=== PATIENT | male | born 1960 | race Caucasian/White ===

== ENCOUNTER → 2022-02-06 | Outpatient (CLI) | payer BC ==
--- NOTE | 2022-02-06 09:42 | MR ---
EXAMINATION TYPE: MR lumbar spine wo con DATE OF EXAM: 02/06/2022 COMPARISON: Lumbar spine radiograph 10/21/2021 HISTORY: Lower back pain, radiates down right leg. TECHNIQUE: Multiplanar, multisequence images of the lumbar spine were acquired without IV contrast. FINDINGS: Lumbar segments are intact. No paraspinal masses are identified. Conus medullaris has a normal appe arance. Multilevel disc desiccation. L1-L2: No herniation, protrusion or disc bulging. No canal stenosis is present. Foramina are paten t bilaterally. L2-L3: No herniation, protrusion or disc bulging. No canal stenosis is present. Foramina are paten t bilaterally. L3-L4: No herniation, protrusion or disc bulging. No canal stenosis is present. Foramina are paten t bilaterally. L4-L5: Broad-based disc bulge without significant effacement of the anterior thecal sac. Bilateral fa cet arthropathy with right greater than left. T2 hyperintense/T1 isointense lesion measuring 1.6 x 0. 8 cm in the right L4 lateral recess (series 601, image 10 and series 301, image 11). This results in moderate effacement of the right lateral thecal sac with displacement of the exiting right L4 nerve r oot. The descending right L5 nerve root is displaced medially. There is associated ligamentum flavum buckling with right greater than left. Severe right neural foraminal stenosis. The left neural forame n is mildly narrowed. L5-S1: No herniation, protrusion or disc bulging. No canal stenosis is present. Bilateral facet arth ropathy. Foramina are patent bilaterally. IMPRESSION: Large 1.6 cm lesion in the right L4 lateral recess with signal characteristics of a synovial cyst chung sing from the L4-L5 facet joint. This contacts the right L4 and L5 nerve roots with severe right neur al foraminal stenosis. There is moderate effacement of the lateral aspect of the thecal sac at this l evel.
== END | disposition home or self-care (01) ==
LOC: RADMRIMAIN 08:09
PROVIDERS: ATTEND Orthopaedic Surgery
DX: M99.73 Connective tissue and disc stenosis of intervertebral foramina of lumbar region (principal); G95.9 Disease of spinal cord, unspecified
CPT/HCPCS: 72148

== ENCOUNTER → 2022-12-01 | Outpatient (CLI) | payer BC ==
[2022-12-01 10:58] LABS: Basophils # (A) 0.05 X 10*3/uL (0.00-0.10); Basophils % (A) 1.1 %; Eosinophils # (A) 0.06 X 10*3/uL (0.04-0.35); Eosinophils % (A) 1.3 %; HCT 35.9 % (39.6-50.0); HGB 12.5 d/dL (13.0-17.0); Lymphocytes # (A) 1.31 X 10*3/uL (0.90-5.00); Lymphocytes % (A) 29.1 %; MCH 39.7 pg (27.0-32.0); MCHC 34.8 d/dL (32.0-37.0); Mean Platelet Volume 11.1 FL (9.5-12.2); Monocytes # (A) 0.63 X 10*3/uL (0.20-1.00); NRBC Per 100 WBC 0 X 10*3/uL (0.00-0.01); Neutrophils # (A) 2.43 X 10*3/uL (1.80-7.70); Neutrophils % (A) 54.1 %; Platelet Count 114 X 10*3/uL (140-440); RBC 3.15 X 10*6/uL (4.40-5.60)
[2022-12-01 11:35] LABS: ALT 22 U/L (10-49); AST 42 U/L (14-35); Albumin 4.1 d/dL (3.8-4.9); Albumin/Globulin Ratio 1.28 Ratio (1.60-3.17); Alkaline Phosphatase 192 U/L (41-126); Blood Urea Nitrogen 7.4 mg/dL (9.0-27.0); Calcium 9.6 mg/dL (8.7-10.3); Carbon Dioxide 24.1 mmol/L (21.6-31.8); Chloride 93 mmol/L (96-109); Globulin 3.2 d/dL (1.6-3.3); Glucose 97 mg/dL (70-110); Potassium 4.9 mmol/L (3.5-5.5); Sodium 128 mmol/L (135-145); Total Bilirubin 0.5 mg/dL (0.3-1.2); Total Protein 7.3 d/dL (6.2-8.2)
[2022-12-01 11:43] LABS: Appearance,Urine Clear (Clear); Bilirubin,Urine Negative (Negative); Blood,Urine Negative (Negative); Color,Urine Yellow (Yellow); Ketones,Urine Negative (Negative); Nitrite,Urine Negative (Negative); PH, Urine 5.5; Specific Gravity,Urine 1.012 (1.001-1.030); Urobilinogen,Urine 0.2 E.U./DL
[2022-12-01 13:22] LABS: Erythrocyte Sedimentation Rate 63 mm/Hr (0-20)
== END | disposition home or self-care (01) ==
LOC: LABWHC1 07:22
PROVIDERS: ATTEND Internal Medicine Infectious Disease
DX: M96.1 Postlaminectomy syndrome, not elsewhere classified (principal); L30.9 Dermatitis, unspecified
CPT/HCPCS: 36415; 80053; 81003; 85025; 85652; 86140

== ENCOUNTER 2023-05-24 13:54 | Inpatient (IN) | payer BC ==
[2023-05-24 14:44] LABS: ALT 27 U/L (4-49); AST 68 U/L (17-59); African American GFR (CKD) >90 (>60 ml/min/1.73 sqM); Albumin 3.2 g/dL (3.5-5.0); Alkaline Phosphatase 186 U/L (38-126); Anion Gap 14 mmol/L; Blood Urea Nitrogen 17 mg/dL (9-20); Calcium 8.6 mg/dL (8.4-10.2); Carbon Dioxide 16 mmol/L (22-30); Chloride 93 mmol/L (98-107); Creatine Kinase 57 U/L (55-170); Glucose 95 mg/dL (74-99); Magnesium 1.8 mg/dL (1.6-2.3); Non-African American GFR(CKD) >90 (>60 ml/min/1.73 sqM); Sodium 123 mmol/L (137-145); Total Bilirubin 1.5 mg/dL (0.2-1.3); Total Protein 6.5 g/dL (6.3-8.2)
[2023-05-24] MEDS: SODIUM CHLORIDE 0.9% 1,000 ML IV STA (14:51)
--- NOTE | 2023-05-24 14:52 | XR ---
EXAMINATION TYPE: XR chest 1V portable DATE OF EXAM: 05/24/2023 2:40 PM CLINICAL INDICATION:Male, 63 years old with history of weakness; [facility] COMPARISON: None TECHNIQUE: XR chest 1V portable Frontal view of the chest. FINDINGS: Lungs/Pleura: Hazy airspace disease is identified surrounding the right hilum. No evidence of pleural effusion or pneumothorax. Pulmonary vascularity: Unremarkable. Heart/mediastinum: Cardiomediastinal silhouette is unremarkable. Musculoskeletal: No acute osseous pathology. IMPRESSION: Hazy airspace disease near the right hilum, may represent combination of atelectasis and developing i nfectious/inflammatory process.
--- NOTE | 2023-05-24 14:52 | ED ---
General Adult HPI - General Chief complaint: Altered Mental Status Stated complaint: Altered Mental Status Time Seen by Provider: 05/24/23 13:56 Source: patient, family, EMS, RN notes reviewed, old records reviewed Mode of arrival: EMS Limitations: altered mental status - History of Present Illness Initial comments: 63-year-old male presenting for evaluation of confusion, weakness, debility. History is obtained from paramedics and from the patient's who indicate that he has had a steady decline over the past 1 month. He has history of chronic back pain and has had chronic issues related to his back for over 1 year. She states he did have an infection in his back that took a long hot time to rehab from. He is not been ambulatory and is living alone but his ex- is able to check on him frequently. He has not been eating and drinking well. - Related Data Allergies Allergy/AdvReac Type Severity Reaction Status Date / Time No Known Allergies Allergy Verified 05/24/23 14:00 Review of Systems ROS Statement: Those systems with pertinent positive or pertinent negative responses have been documented in the HPI. ROS Other: All systems not noted in ROS Statement are negative. Past Medical History Past Medical History: Unable to Obtain History of Any Multi-Drug Resistant Organisms: Unobtainable Past Surgical History: Unable to Obtain Past Psychological History: Unable to Obtain General Exam Limitations: no limitations General appearance: lethargic, in distress Head exam: Present: atraumatic, normocephalic Eye exam: Present: normal appearance, PERRL ENT exam: Present: mucous membranes dry Respiratory exam: Present: wheezes, other (Tachypneic). Absent: respiratory distress Cardiovascular Exam: Present: tachycardia, irregular rhythm GI/Abdominal exam: Present: soft. Absent: distended, tenderness, guarding Extremities exam: Present: normal inspection, normal capillary refill Neurological exam: Present: alert, CN II-XII intact, other (Generalized weakness). Absent: oriented X3 Skin exam: Present: warm, dry Course Vital Signs 05/24/23 05/24/23 13:56 15:12 Temperature 97.7 F Pulse Rate 110 H 123 H Respiratory 24 20 Rate Blood Pressure 87/66 127/63 O2 Sat by Pulse 96 94 L Oximetry Medical Decision Making - Medical Decision Making Was pt. sent in by a medical professional or institution (, PA, PYROTECHNIC MIXER, urgent care, hospital, or detention...) When possible be specific @ -No Did you speak to anyone other than the patient for history (EMS, parent, family, police, friend...)? What history was obtained from this source @ -Patient's ex-, paramedics Did you review nursing and triage notes (agree or disagree)? Why? @ -I reviewed and agree with nursing and triage notes Were old charts reviewed (outside hosp., previous admission, EMS record, old EKG, old radiological studies, urgent care reports/EKG's, detention records)? Report findings @ -No old charts were reviewed Differential Diagnosis (chest pain, altered mental status, abdominal pain women, abdominal pain men, vaginal bleeding, weakness, fever, dyspnea, syncope, headache, dizziness, GI bleed, back pain, seizure, CVA, palpatations, mental health, musculoskeletal)? @ -Differential Weakness: Hypoglycemia, shock, sepsis, hyponatremia, anemia, infection, PA, ETOH, adverse medicine reaction, overdose, stroke, this is not meant to be an all-inclusive list. EKG interpreted by me (3pts min.). @ -Narrow complex rhythm sinus tach versus atrial flutter rate of 136, QRS duration 130, QTc 445. X-rays interpreted by me (1pt min.). @ -Chest x-ray concerning for developing airspace opacity, pneumonia. CT interpreted by me (1pt min.). @ -None done U/S interpreted by me (1pt. min.). @ -None done What testing was considered but not performed or refused? (CT, X-rays, U/S, labs)? Why? @ -None What meds were considered but not given or refused? Why? @ -None Did you discuss the management of the patient with other professionals (professionals i.e. , PA, PYROTECHNIC MIXER, lab, RT, psych nurse, social sciences lecturer, accounting policy consultant, teacher, electorate officer, pillowcase cutter)? Give summary @ -No Was smoking cessation discussed for >3mins.? @ -No Was critical care preformed (if so, how long)? @ -[yes, 35 min Were there social determinants of health that impacted care today? How? (Homelessness, low income, unemployed, alcoholism, drug addiction, transportation, low edu. Level, literacy, decrease access to med. care, intermediate, rehab)? @ -No Was there de-escalation of care discussed even if they declined (Discuss DNR or withdrawal of care, Hospice)? DNR status @ -No What co-morbidities impacted this encounter? (DM, HTN, Smoking, COPD, CAD, Cancer, CVA, ARF, Chemo, Hep., AIDS, mental health diagnosis, sleep apnea, mor bid obesity)? @ Was patient admitted / discharged? Hospital course, mention meds given and route, prescriptions, significant lab abnormalities, going to OR and other pertinent info. @ -63-year-old male presenting with progressive debility and weakness. Patient is tachycardic, tachypneic upon arrival. He has not been eating and drinking well. Very dry mucous membranes. Given fluid bolus and workup initiated. Chest x-ray does show concern for developing pneumonia. He has a white blood cell count of 15,000. His hemoglobin is stable. He has hyponatremia with a sodium of 123. His lactic acid is elevated at 3.3. His troponin is elevated at 2. He will be admitted for dehydration, hyponatremia, pneumonia, non-ST segment elevated PA. Case discussed with [facility] and Dr. Artis covering for cardiology. Dr. Artis does recommend heparin for this patient. This is initiated in the emergency department. Cardiac enzymes will be trended. Undiagnosed new problem with uncertain prognosis? @ -No Drug Therapy requiring intensive monitoring for toxicity (Heparin, Nitro, Insulin, Cardizem)? @ -No Were any procedures done? @ -No Diagnosis/symptom? @ -[NSTEMI, dehydration, hyponatremia, pneumonia Acute, or Chronic, or Acute on Chronic? @ -Acute Uncomplicated (without systemic symptoms) or Complicated (systemic symptoms)? @ -Default Side effects of treatment? @ -No Exacerbation, Progression, or Severe Exacerbation? @ -No Poses a threat to life or bodily function? How? (Chest pain, USA, PA, pneumonia, PE, COPD, DKA, ARF, appy, cholecystitis, CVA, Diverticulitis, Homicidal, Suicidal, threat to staff... and all critical care pts) @ -[Yes, ACS, sepsis, electrolyte abnormality - Lab Data Result diagrams: 05/24/23 14:11 05/24/23 14:11 Lab Results 05/24/23 05/24/23 05/24/23 Range/Units 14:11 14:11 14:11 WBC 15.6 H (3.8-10.6) k/uL RBC 3.46 L (4.30-5.90) m/uL Hgb 13.5 (13.0-17.5) gm/dL Hct 38.2 L (39.0-53.0) % MCV 110.1 H (80.0-100.0) fL MCH 39.0 H (25.0-35.0) pg MCHC 35.4 (31.0-37.0) g/dL RDW 12.3 (11.5-15.5) % Plt Count 112 L (150-450) k/uL MPV 10.1 Neutrophils % Not Reportable Neutrophils % (Manual) 91 % Band Neuts % (Manual) 5 % Lymphocytes % Not Reportable Lymphocytes % (Manual) 2 % Monocytes % Not Reportable Monocytes % (Manual) 2 % Eosinophils % Not Reportable Basophils % Not Reportable Neutrophils # Not Reportable Neutrophils # (Manual) 14.90 H (1.3-7.7) k/uL Lymphocytes # Not Reportable Lymphocytes # (Manual) 0.31 L (1.0-4.8) k/uL Monocytes # Not Reportable Monocytes # (Manual) 0.31 (0-1.0) k/uL Eosinophils # Not Reportable Basophils # Not Reportable Nucleated RBCs 0 (0-0) /100 WBC Manual Slide Review Performed Macrocytosis Marked A PT (10.0-12.5) sec INR (<1.2) APTT (22.0-30.0) sec Sodium 123 L (137-145) mmol/L Potassium 4.0 (3.5-5.1) mmol/L Chloride 93 L (98-107) mmol/L Carbon Dioxide 16 L (22-30) mmol/L Anion Gap 14 mmol/L BUN 17 (9-20) mg/dL Creatinine 0.59 L (0.66-1.25) mg/dL Est GFR (CKD-EPI)AfAm >90 (>60 ml/min/1.73 sqM) Est GFR (CKD-EPI)NonAf >90 (>60 ml/min/1.73 sqM) Glucose 95 (74-99) mg/dL Plasma Lactic Acid Tom (0.7-2.0) mmol/L Calcium 8.6 (8.4-10.2) mg/dL Magnesium 1.8 (1.6-2.3) mg/dL Total Bilirubin 1.5 H (0.2-1.3) mg/dL AST 68 H (17-59) U/L ALT 27 (4-49) U/L Alkaline Phosphatase 186 H (38-126) U/L Creatine Kinase 57 (55-170) U/L Troponin I (0.000-0.034) ng/mL Total Protein 6.5 (6.3-8.2) g/dL Albumin 3.2 L (3.5-5.0) g/dL Urine Color Yellow Urine Appearance Clear (Clear) Urine pH 5.5 (5.0-8.0) Ur Specific [place] 1.023 (1.001-1.035) Urine Protein Trace H (Negative) Urine Glucose (UA) Negative (Negative) Urine Ketones Trace H (Negative) Urine Blood Moderate H (Negative) Urine Nitrite Negative (Negative) Urine Bilirubin Negative (Negative) Urine Urobilinogen 2.0 (<2.0) mg/dL Ur Leukocyte Esterase Negative (Negative) Urine RBC 4 (0-5) /hpf Urine WBC 4 (0-5) /hpf Urine Bacteria Occasional H (None) /hpf Urine Mucus Rare H (None) /hpf 05/24/23 05/24/23 05/24/23 Range/Units 14:11 14:11 14:12 WBC (3.8-10.6) k/uL RBC (4.30-5.90) m/uL Hgb (13.0-17.5) gm/dL Hct (39.0-53.0) % MCV (80.0-100.0) fL MCH (25.0-35.0) pg MCHC (31.0-37.0) g/dL RDW (11.5-15.5) % Plt Count (150-450) k/uL MPV Neutrophils % Neutrophils % (Manual) % Band Neuts % (Manual) % Lymphocytes % Lymphocytes % (Manual) % Monocytes % Monocytes % (Manual) % Eosinophils % Basophils % Neutrophils # Neutrophils # (Manual) (1.3-7.7) k/uL Lymphocytes # Lymphocytes # (Manual) (1.0-4.8) k/uL Monocytes # Monocytes # (Manual) (0-1.0) k/uL Eosinophils # Basophils # Nucleated RBCs (0-0) /100 WBC Manual Slide Review Macrocytosis PT 13.0 H (10.0-12.5) sec INR 1.2 H (<1.2) APTT 30.7 H (22.0-30.0) sec Sodium (137-145) mmol/L Potassium (3.5-5.1) mmol/L Chloride (98-107) mmol/L Carbon Dioxide (22-30) mmol/L Anion Gap mmol/L BUN (9-20) mg/dL Creatinine (0.66-1.25) mg/dL Est GFR (CKD-EPI)AfAm (>60 ml/min/1.73 sqM) Est GFR (CKD-EPI)NonAf (>60 ml/min/1.73 sqM) Glucose (74-99) mg/dL Plasma Lactic Acid Tom 3.3 H* (0.7-2.0) mmol/L Calcium (8.4-10.2) mg/dL Magnesium (1.6-2.3) mg/dL Total Bilirubin (0.2-1.3) mg/dL AST (17-59) U/L ALT (4-49) U/L Alkaline Phosphatase (38-126) U/L Creatine Kinase (55-170) U/L Troponin I 2.370 H* (0.000-0.034) ng/mL Total Protein (6.3-8.2) g/dL Albumin (3.5-5.0) g/dL Urine Color Urine Appearance (Clear) Urine pH (5.0-8.0) Ur Specific [place] (1.001-1.035) Urine Protein (Negative) Urine Glucose (UA) (Negative) Urine Ketones (Negative) Urine Blood (Negative) Urine Nitrite (Negative) Urine Bilirubin (Negative) Urine Urobilinogen (<2.0) mg/dL Ur Leukocyte Esterase (Negative) Urine RBC (0-5) /hpf Urine WBC (0-5) /hpf Urine Bacteria (None) /hpf Urine Mucus (None) /hpf Critical Care Time Critical Care Time: Yes Total Critical Care Time: 35 Disposition Clinical Impression: Altered mental status, Pneumonia, NSTEMI (non-ST elevated myocardial infarction), Hyponatremia Disposition: ADMITTED IP TO THIS HOSP Condition: Serious Is patient prescribed a controlled substance at d/c from ED?: No Referrals: None,Stated [REFERRING] - 1-2 days Time of Disposition: 16:04
[2023-05-24 15:03] LABS: HCT 38.2 % (39.0-53.0); HGB 13.5 gm/dL (13.0-17.5); MCHC 35.4 g/dL (31.0-37.0); MCV 110.1 fL (80.0-100.0); Macrocytosis Marked; Mean Platelet Volume 10.1; Platelet Count 112 k/uL (150-450); RBC 3.46 m/uL (4.30-5.90); RDW 12.3 % (11.5-15.5); WBC 15.6 k/uL (3.8-10.6)
[2023-05-24 15:04] LABS: INR 1.2 (<1.2); Partial Thromboplastin Time 30.7 sec (22.0-30.0)
[2023-05-24 15:15] LABS: Appearance,Urine Clear (Clear); Bacteria,Urine Occasional /hpf; Bilirubin,Urine Negative (Negative); Blood,Urine Moderate (Negative); Color,Urine Yellow; Glucose,Urine (UA) Negative (Negative); Ketones,Urine Trace (Negative); Leukocyte Esterase,Urine Negative (Negative); Mucus,Urine Rare /hpf; Nitrite,Urine Negative (Negative); PH, Urine 5.5 (5.0-8.0); Protein,Urine Trace (Negative); RBC,Urine 4 /hpf (0-5); Specific Gravity,Urine 1.023 (1.001-1.035); WBC,Urine 4 /hpf (0-5)
[2023-05-24 15:35] LABS: Band Neutrophils % 5 %; Lymphocytes # (M) 0.31 k/uL (1.0-4.8); Monocytes # (M) 0.31 k/uL (0-1.0); Neutrophils % (M) 91 %; Nucleated Red Blood Cells 0 /100 WBC (0-0); Total Cells Counted 100
[2023-05-24] MEDS: DILTIAZEM DRIP BOLUS FROM BAG 1 MG SOLN IV ONE (15:41)
[2023-05-24] MEDS: DILTIAZEM 125 MG in SODIUM CHLORIDE 0.9% 100 ML IV SCH (15:41)
[2023-05-24] MEDS ORDERED: NALOXONE 0.4 MG/ML 1 ML VIAL IV PRN (15:55)
--- NOTE | 2023-05-24 17:12 | P.HPIM ---
History of Present Illness H&P Date: 05/24/23 Patient is a 63-year-old male with history of hypertension presenting with confusion and dehydration. Patient is a poor historian. Ex- is present in the room. Patient reportedly had back surgery about 1 year ago, and had spinal infections. He was nonambulatory for almost 6 months. However, more recently he started to get improve. About few weeks ago he has been progressively de clining, mostly staying in his recliner chair. Today, ex- went to his house to check on him, and noted that he was extremely debilitated unable to get up from his chair, not sure if he has been eating or drinking, extremely confused. He had also soiled himself when she tried to get him out of the chair to shower. Patient currently denies any significant chest pain, shortness of breath, abdo nathan pain, nausea, vomiting, urinary or bowel complaints. No recent travel history or sick contacts. In the ED, temperature was 97.7, pulse 110, blood pressure 87/66, saturating at 96% on room air. WBC 15.6, hemoglobin 13.5, platelet 112, INR 1.2, sodium 123, potassium 4, bicarb 16, anion gap 14, BUN 17, creatinine 0.59, lactate 3.3, total bili 1.5, AST 68, ALT 27, ALP 186, troponin 2.37, urinalysis negative for nitrites and leukocyte esterase. EKG shows supraventricular tachycardia, likely sinus, right bundle branch block chest x-ray shows underinflated, opacity near the right hilum. Patient being admitted for severe dehydration, NSTEMI and sepsis secondary to pneumonia. Pertinent positives and negatives as discussed in HPI, a complete review of systems was performed and all other systems are negative. Patient seen and examined at bedside. Vital signs reviewed General: Ill-appearing, mild distress, appears at stated age Derm: warm, dry Head: atraumatic, normocephalic, symmetric Eyes: EOMI, no lid lag, anicteric sclera, pupils equal round reactive to light ENT: Nose and ears atraumatic Neck: No thyromegaly, supple Mouth: no lip lesion, mucus membranes moist Cardiovascular: S1S2 reg, systolic murmur, no edema Lungs: clear to auscultation bilateral, no rhonchi, no rales, no wheeze, no accessory muscle use Abdominal: soft, nontender to palpation, no guarding, no appreciable organomegaly Ext: no gross muscle atrophy, muscle strength muscle strength 5 out of 5 in all 4 extremities, no contractures Neuro: CN II-XII grossly intact Psych: Alert, oriented x 2, appropriate affect Assessment/Plan: Active: Sepsis, likely secondary to community-acquired pneumonia Severe dehydration Hypovolemic hyponatremia High anion gap metabolic acidosis Lactic acidosis NSTEMI, likely type II Hyperbilirubinemia Thrombocytopenia, likely in the setting of sepsis Acute encephalopathy, likely related to sepsis, versus hepatic Hold home diuretics, continue IV fluids at 130 cc an hour normal saline Empirically cover with IV ceftriaxone and IV azithromycin, cultures pending BMP every 6 hours, avoid increase in sodium more than 8 mEq in the next 24 hours Trend troponin, currently no active chest pain On heparin drip Status post aspirin 325, will continue aspirin 81 mg, also started on atorvastatin 40 Echocardiogram pending Telemetry monitoring Cardiology consulted, pending recommendations Right upper quadrant ultrasound ordered Ammonia level pending The patient is admitted with an anticipated greater than 2 midnight stay as inpatient status for evaluation of severe dehydration. Surrogate decision-maker: Ex- CODE STATUS: Full code DVT prophylaxis: Heparin drip Anticipated discharge date: Pending clinical course Anticipated discharge place: Pending clinical course A total of 65 minutes was spent on the care of this complex patient more than 50% of the time was spent in counseling and care coordination. Past Medical History Past Medical History: Unable to Obtain History of Any Multi-Drug Resistant Organisms: Unobtainable Past Surgical History: Unable to Obtain Past Psychological History: Unable to Obtain Medications and Allergies Allergies Allergy/AdvReac Type Severity Reaction Status Date / Time No Known Allergies Allergy Verified 05/24/23 14:00 Physical Exam Vitals: Vital Signs Temp Pulse Resp BP Pulse Ox 05/24/23 15:12 123 H 20 127/63 94 L 05/24/23 13:56 97.7 F 110 H 24 87/66 96 Intake and Output 05/24/23 05/24/23 05/24/23 06:59 14:59 22:59 Other: Weight 106.8 kg Results CBC & Chem 7: 05/24/23 14:11 05/24/23 14:11 Labs: Abnormal Lab Results - Last 24 Hours (Table) 05/24/23 05/24/23 05/24/23 Range/Units 14:11 14:11 14:11 WBC 15.6 H (3.8-10.6) k/uL RBC 3.46 L (4.30-5.90) m/uL Hct 38.2 L (39.0-53.0) % MCV 110.1 H (80.0-100.0) fL MCH 39.0 H (25.0-35.0) pg Plt Count 112 L (150-450) k/uL Neutrophils # (Manual) 14.90 H (1.3-7.7) k/uL Lymphocytes # (Manual) 0.31 L (1.0-4.8) k/uL Macrocytosis Marked A PT (10.0-12.5) sec INR (<1.2) APTT (22.0-30.0) sec Sodium 123 L (137-145) mmol/L Chloride 93 L (98-107) mmol/L Carbon Dioxide 16 L (22-30) mmol/L Creatinine 0.59 L (0.66-1.25) mg/dL Plasma Lactic Acid Tom (0.7-2.0) mmol/L Total Bilirubin 1.5 H (0.2-1.3) mg/dL AST 68 H (17-59) U/L Alkaline Phosphatase 186 H (38-126) U/L Troponin I (0.000-0.034) ng/mL Albumin 3.2 L (3.5-5.0) g/dL Urine Protein Trace H (Negative) Urine Ketones Trace H (Negative) Urine Blood Moderate H (Negative) Urine Bacteria Occasional H (None) /hpf Urine Mucus Rare H (None) /hpf 05/24/23 05/24/23 05/24/23 Range/Units 14:11 14:11 14:12 WBC (3.8-10.6) k/uL RBC (4.30-5.90) m/uL Hct (39.0-53.0) % MCV (80.0-100.0) fL MCH (25.0-35.0) pg Plt Count (150-450) k/uL Neutrophils # (Manual) (1.3-7.7) k/uL Lymphocytes # (Manual) (1.0-4.8) k/uL Macrocytosis PT 13.0 H (10.0-12.5) sec INR 1.2 H (<1.2) APTT 30.7 H (22.0-30.0) sec Sodium (137-145) mmol/L Chloride (98-107) mmol/L Carbon Dioxide (22-30) mmol/L Creatinine (0.66-1.25) mg/dL Plasma Lactic Acid Tom 3.3 H* (0.7-2.0) mmol/L Total Bilirubin (0.2-1.3) mg/dL AST (17-59) U/L Alkaline Phosphatase (38-126) U/L Troponin I 2.370 H* (0.000-0.034) ng/mL Albumin (3.5-5.0) g/dL Urine Protein (Negative) Urine Ketones (Negative) Urine Blood (Negative) Urine Bacteria (None) /hpf Urine Mucus (None) /hpf
[2023-05-24] MEDS: SODIUM CHLORIDE 0.9% 1,000 ML IV SCH (17:56)
[2023-05-24] MEDS: ASPIRIN 325 MG TAB PO STA (17:57)
[2023-05-24] MEDS: HEPARIN SODIUM 1,000 UN/ML (10ML VL) IV ONE (17:59)
[2023-05-24] MEDS: HEPARIN SOD,PORK IN 0.45% NACL 25,000 UNIT in 0.45% NACL 1 250ML.BAG IV SCH (18:00)
[2023-05-24 18:26] LABS: African American GFR (CKD) >90 (>60 ml/min/1.73 sqM); Anion Gap 13 mmol/L; Blood Urea Nitrogen 17 mg/dL (9-20); Calcium 8.3 mg/dL (8.4-10.2); Carbon Dioxide 17 mmol/L (22-30); Chloride 93 mmol/L (98-107); Glucose 81 mg/dL (74-99); Non-African American GFR(CKD) >90 (>60 ml/min/1.73 sqM); Potassium 4.2 mmol/L (3.5-5.1); Sodium 123 mmol/L (137-145)
[2023-05-24] MEDS: AZITHROMYCIN 500 MG in SODIUM CHLORIDE 0.9% 250 ML IVPB STA (18:59)
[2023-05-24] MEDS: MORPHINE SULFATE 2 MG/ML SYRINGE IVP PRN (20:24)
[2023-05-24] MEDS: ATORVASTATIN 40 MG TAB PO SCH (20:30)
[2023-05-24] MEDS: GABAPENTIN 400 MG CAP PO SCH (21:57)
[2023-05-24] MEDS: PRAMIPEXOLE 0.5 MG TAB PO SCH (21:57)
--- NOTE | 2023-05-24 23:31 | CT ---
EXAMINATION TYPE: CT brain wo con DATE OF EXAM: 05/24/2023 HISTORY: AMS CT DLP: 1197.4 mGycm. Automated Exposure Control for Dose Reduction was Utilized. TECHNIQUE: CT scan of the head is performed without contrast. COMPARISON: None. FINDINGS: There is no acute intracranial hemorrhage or midline shift identified. There is mild diff use ventricular and sulcal prominence consistent with diffuse age-related cerebral atrophy. There is mild low-attenuation in the periventricular white matter consistent with chronic small vessel ischem ic change. No suspicious opacification of the mastoid air cells bilaterally. The globes are intact a nd the visualized sinuses are clear. IMPRESSION: No acute intracranial hemorrhage or midline shift. There is mild diffuse age-related ce rebral atrophy and chronic small vessel ischemic change noted.
--- NOTE | 2023-05-25 00:06 | US ---
EXAMINATION TYPE: US abdomen limited DATE OF EXAM: 05/24/2023 COMPARISON: NONE CLINICAL INDICATION: Male, 63 years old with history of transaminitis; TECHNIQUE: Multiple sonographic images of the right upper quadrant are obtained. FINDINGS: EXAM MEASUREMENTS: Liver Length: 22.2 cm Gallbladder Wall: 0.2 cm CBD: 0.4 cm Right Kidney: 11.5 x 5.4 x 5.0 cm Pancreas: visualized portions wnl, limited by overlying midline bowel gas Liver: Enlarged. Question slightly coarsened echogenicity with no significant loss of internal tanmay ecture demonstrated. Gallbladder: Hydropic, measuring 10.7 cm in length and up to 4 cm across. Grayscale haziness at the s uperficial aspect of the gallbladder on some images appears to be artifact. No shadowing gallstones a re seen. Evidence for sonographic Ortega's sign: yes CBD: visualized portions wnl, limited by overlying bowel gas Right Kidney: wnl IMPRESSION: 1. Hepatomegaly. Question slightly coarsened echogenicity, can be seen with diffuse hepatocellular d iseases including steatosis. Correlate clinically. 2. Hydropic gallbladder, with reportedly positive sonographic Ortega's sign. However no shadowing ga llstones, wall thickening, or pericholecystic fluid. Findings are considered equivocal for possible c holecystitis. Please correlate and follow clinically, and if there is persistent concern HIDA scan or repeat ultrasound may be obtained. 3. CBD size is within normal limits.
[2023-05-25 01:29] LABS: African American GFR (CKD) >90 (>60 ml/min/1.73 sqM); Anion Gap 12 mmol/L; Blood Urea Nitrogen 19 mg/dL (9-20); Calcium 7.6 mg/dL (8.4-10.2); Carbon Dioxide 13 mmol/L (22-30); Chloride 95 mmol/L (98-107); Glucose 94 mg/dL (74-99); Non-African American GFR(CKD) >90 (>60 ml/min/1.73 sqM); Potassium 3.8 mmol/L (3.5-5.1); Sodium 120 mmol/L (137-145)
[2023-05-25 06:56] LABS: INR 1.3 (<1.2); Prothrombin Time 13.9 sec (10.0-12.5)
[2023-05-25 07:03] LABS: Basophils % (A) 0 %; Eosinophils % (A) 0 %; HCT 35.8 % (39.0-53.0); HGB 12.2 gm/dL (13.0-17.5); Lymphocytes % (A) 6 %; MCH 37.7 pg (25.0-35.0); Macrocytosis Marked; Mean Platelet Volume 10.7; Monocytes # (A) 1.1 k/uL (0-1.0); Monocytes % (A) 7 %; Neutrophils # (A) 13.5 k/uL (1.3-7.7); Neutrophils % (A) 85 %; RBC 3.22 m/uL (4.30-5.90); WBC 15.9 k/uL (3.8-10.6)
[2023-05-25 07:28] LABS: African American GFR (CKD) >90 (>60 ml/min/1.73 sqM); Anion Gap 11 mmol/L; Blood Urea Nitrogen 20 mg/dL (9-20); Calcium 7.6 mg/dL (8.4-10.2); Carbon Dioxide 16 mmol/L (22-30); Chloride 94 mmol/L (98-107); Glucose 94 mg/dL (74-99); Non-African American GFR(CKD) >90 (>60 ml/min/1.73 sqM); Sodium 121 mmol/L (137-145)
[2023-05-25 07:45] LABS: Potassium 3.7 mmol/L (3.5-5.1)
[2023-05-25] MEDS: GABAPENTIN 400 MG CAP PO SCH (09:26)
[2023-05-25 09:33] LABS: Platelet Count 88 k/uL (150-450)
[2023-05-25] MEDS: ASPIRIN 81 MG PO SCH (10:35)
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
--- NOTE | 2023-05-25 11:51 | US ---
EXAMINATION TYPE: US abdomen limited DATE OF EXAM: 05/25/2023 COMPARISON: US Yesterday CLINICAL INDICATION, 63 years old with history of ascites; Ascites, ABD distention No evidence of ascites within abdomen IMPRESSION: 1. No free fluid evident within the abdomen.
[2023-05-25] MEDS: DILTIAZEM 125 MG in SODIUM CHLORIDE 0.9% 100 ML IV SCH (12:02)
[2023-05-25] MEDS: DILTIAZEM DRIP BOLUS FROM BAG 1 MG SOLN IV ONE (12:04)
--- NOTE | 2023-05-25 14:35 | NM ---
EXAMINATION TYPE: NM hepatobiliary w CCK DATE OF EXAM: 05/25/2023 COMPARISON: NONE INDICATION: Sepsis possible cholecystitis TECHNIQUE: After the intravenous administration of 4.96 mCi Tc 99m Mebrofenin hepatobiliary scintigra phy is performed. Images were obtained immediately post injection. FINDINGS: There is prompt uptake and excretion of radiotracer by the liver. Extrahepatic ducts are identified at 10 minutes. The gallbladder is visualized within 10 minutes. Small bowel activity is noted within 8 minutes. At one hour CCK was administered, patient was injected with 2.2 mcg of Kinevac, and gallbladder eject ion fraction is calculated at 99 %, which is low. (Normal >35% and <80%.). IMPRESSION: 1. Low ejection fraction of 29%. Correlate for biliary hypokinesia. 2. No obstruction evident.
--- NOTE | 2023-05-25 14:53 | P.PN ---
Subjective Progress Note Date: 05/25/23 Hospital Course: 63-year-old male with history of hypertension presenting with confusion and deh ydration. In the ED, temperature was 97.7, pulse 110, blood pressure 87/66, saturating at 96% on room air. WBC 15.6, hemoglobin 13.5, platelet 112, INR 1.2, sodium 123, potassium 4, bicarb 16, anion gap 14, BUN 17, creatinine 0.59, lactate 3.3, total bili 1.5, AST 68, ALT 27, ALP 186, troponin 2.37, urinalysis negative for nitrites and leukocyte esterase. EKG shows supraventricular tachycardia, likely sinus, right bundle branch block chest x-ray shows underinflated, opacity near the right hilum. Patient being admitted for severe dehydration, NSTEMI and sepsis secondary to pneumonia. Patient is also found to be bacteremic, growing MSSA. ID also consulted. Subjective: Patient seen and examined at bedside. No acute events overnight. Patient claims that he is feeling a lot better today Pertinent positives and negatives as discussed above, a complete review of systems was performed and all other systems are negative. Vitals Signs Reviewed. General: Nontoxic, no distress, appears at stated age Derm: Warm, dry Head: Atraumatic, normocephalic, symmetric Eyes: EOMI, no lid lag, anicteric sclera Mouth: No lip lesion, mucus membranes moist Cardiovascular: S1S2 tachycardic, irregular, systolic murmur Lungs: CTA bilateral, no rhonchi, no rales, no accessory muscle use Abdominal: Soft, nontender to palpation, no guarding, no appreciable organomegaly Ext: No gross muscle atrophy, no edema, no contractures, lumbar spinal tenderness Neuro: CN II-XI grossly intact, no focal neuro deficits Psych: Alert, oriented, appropriate affect Data Reviewed Today: Pertinent Labs: WBC 15.9, hemoglobin 12.2, platelet 88, sodium 121, bicarb 16, creatinine 0.56, troponin peaked at 2.37. Imaging: HIDA scan does not show any obstruction. EKG independently interpreted from this morning, shows atrial fibrillation with RVR and right bundle branch block. Assessment and Plan: Patient is severely ill, needs close monitoring. Sepsis, likely secondary to community-acquired pneumonia MSSA bacteremia Severe dehydration, resolved Persistent hyponatremia High anion gap metabolic acidosis, improving Lactic acidosis, resolved NSTEMI, likely type II Paroxysmal atrial fibrillation with RVR Hyperbilirubinemia Thrombocytopenia, likely in the setting of sepsis Acute encephalopathy,, resolved Patient started on cefazolin 2 g IV every 8 hours - Unclear source, patient does have significant lumbar pain, MRI spine pending, echocardiogram pending - ID consulted, pending recommendations - Nephrology note reviewed, patient started on sodium chloride tab 1 g twice daily, sodium bicarb 650 twice daily, IV fluids discontinued, on IV fluid restriction - Continue on heparin drip, cardiology also started Cardizem drip - No active chest pain - Continue aspirin 81 mg, atorvastatin 40 mg DVT ppx: Heparin drip Code status: Full code Anticipated discharge place: Pending clinical course Anticipated discharge time: Pending clinical course Objective - Vital Signs Vital signs: Vital Signs Temp 98 F 05/25/23 14:27 Pulse 134 H 05/25/23 14:27 Resp 18 05/25/23 14:27 BP 130/71 05/25/23 14:27 Pulse Ox 97 05/25/23 14:27 FiO2 Intake & Output 05/24/23 05/25/23 05/25/23 18:59 06:59 18:59 Weight 106.8 kg - Labs CBC & Chem 7: 05/25/23 06:40 05/25/23 06:40 Labs: Abnormal Lab Results - Last 24 Hours (Table) 05/24/23 05/24/23 05/24/23 Range/Units 14:11 14:11 14:11 WBC 15.6 H (3.8-10.6) k/uL RBC 3.46 L (4.30-5.90) m/uL Hgb (13.0-17.5) gm/dL Hct 38.2 L (39.0-53.0) % MCV 110.1 H (80.0-100.0) fL MCH 39.0 H (25.0-35.0) pg Plt Count 112 L (150-450) k/uL Neutrophils # (1.3-7.7) k/uL Neutrophils # (Manual) 14.90 H (1.3-7.7) k/uL Lymphocytes # (Manual) 0.31 L (1.0-4.8) k/uL Monocytes # (0-1.0) k/uL Macrocytosis Marked A PT (10.0-12.5) sec INR (<1.2) APTT (22.0-30.0) sec Sodium 123 L (137-145) mmol/L Chloride 93 L (98-107) mmol/L Carbon Dioxide 16 L (22-30) mmol/L Creatinine 0.59 L (0.66-1.25) mg/dL Osmolality (275-295) mOsm/kg Plasma Lactic Acid Tom (0.7-2.0) mmol/L Calcium (8.4-10.2) mg/dL Total Bilirubin 1.5 H (0.2-1.3) mg/dL AST 68 H (17-59) U/L Alkaline Phosphatase 186 H (38-126) U/L Troponin I (0.000-0.034) ng/mL Albumin 3.2 L (3.5-5.0) g/dL Procalcitonin (0.02-0.09) ng/mL Urine Protein Trace H (Negative) Urine Ketones Trace H (Negative) Urine Blood Moderate H (Negative) Urine Bacteria Occasional H (None) /hpf Urine Mucus Rare H (None) /hpf Urine Osmolality (400-1100) mOsm/kg 05/23/05/24/23 05/24/23 Range/Units 14:11 14:11 14:12 WBC (3.8-10.6) k/uL RBC (4.30-5.90) m/uL Hgb (13.0-17.5) gm/dL Hct (39.0-53.0) % MCV (80.0-100.0) fL MCH (25.0-35.0) pg Plt Count (150-450) k/uL Neutrophils # (1.3-7.7) k/uL Neutrophils # (Manual) (1.3-7.7) k/uL Lymphocytes # (Manual) (1.0-4.8) k/uL Monocytes # (0-1.0) k/uL Macrocytosis PT 13.0 H (10.0-12.5) sec INR 1.2 H (<1.2) APTT 30.7 H (22.0-30.0) sec Sodium (137-145) mmol/L Chloride (98-107) mmol/L Carbon Dioxide (22-30) mmol/L Creatinine (0.66-1.25) mg/dL Osmolality (275-295) mOsm/kg Plasma Lactic Acid Tom 3.3 H* (0.7-2.0) mmol/L Calcium (8.4-10.2) mg/dL Total Bilirubin (0.2-1.3) mg/dL AST (17-59) U/L Alkaline Phosphatase (38-126) U/L Troponin I 2.370 H* (0.000-0.034) ng/mL Albumin (3.5-5.0) g/dL Procalcitonin (0.02-0.09) ng/mL Urine Protein (Negative) Urine Ketones (Negative) Urine Blood (Negative) Urine Bacteria (None) /hpf Urine Mucus (None) /hpf Urine Osmolality (400-1100) mOsm/kg 05/24/23 05/24/23 05/24/23 Range/Units 17:40 17:40 17:40 WBC (3.8-10.6) k/uL RBC (4.30-5.90) m/uL Hgb (13.0-17.5) gm/dL Hct (39.0-53.0) % MCV (80.0-100.0) fL MCH (25.0-35.0) pg Plt Count (150-450) k/uL Neutrophils # (1.3-7.7) k/uL Neutrophils # (Manual) (1.3-7.7) k/uL Lymphocytes # (Manual) (1.0-4.8) k/uL Monocytes # (0-1.0) k/uL Macrocytosis PT (10.0-12.5) sec INR (<1.2) APTT (22.0-30.0) sec Sodium 123 L (137-145) mmol/L Chloride 93 L (98-107) mmol/L Carbon Dioxide 17 L (22-30) mmol/L Creatinine 0.64 L (0.66-1.25) mg/dL Osmolality (275-295) mOsm/kg Plasma Lactic Acid Tom (0.7-2.0) mmol/L Calcium 8.3 L (8.4-10.2) mg/dL Total Bilirubin (0.2-1.3) mg/dL AST (17-59) U/L Alkaline Phosphatase (38-126) U/L Troponin I 2.260 H* (0.000-0.034) ng/mL Albumin (3.5-5.0) g/dL Procalcitonin 9.33 H (0.02-0.09) ng/mL Urine Protein (Negative) Urine Ketones (Negative) Urine Blood (Negative) Urine Bacteria (None) /hpf Urine Mucus (None) /hpf Urine Osmolality (400-1100) mOsm/kg 05/24/23 05/24/23 05/24/23 Range/Units 17:40 20:54 20:54 WBC (3.8-10.6) k/uL RBC (4.30-5.90) m/uL Hgb (13.0-17.5) gm/dL Hct (39.0-53.0) % MCV (80.0-100.0) fL MCH (25.0-35.0) pg Plt Count (150-450) k/uL Neutrophils # (1.3-7.7) k/uL Neutrophils # (Manual) (1.3-7.7) k/uL Lymphocytes # (Manual) (1.0-4.8) k/uL Monocytes # (0-1.0) k/uL Macrocytosis PT (10.0-12.5) sec INR (<1.2) APTT 68.2 H (22.0-30.0) sec Sodium (137-145) mmol/L Chloride (98-107) mmol/L Carbon Dioxide (22-30) mmol/L Creatinine (0.66-1.25) mg/dL Osmolality (275-295) mOsm/kg Plasma Lactic Acid Tom 3.1 H* (0.7-2.0) mmol/L Calcium (8.4-10.2) mg/dL Total Bilirubin (0.2-1.3) mg/dL AST (17-59) U/L Alkaline Phosphatase (38-126) U/L Troponin I 1.950 H* (0.000-0.034) ng/mL Albumin (3.5-5.0) g/dL Procalcitonin (0.02-0.09) ng/mL Urine Protein (Negative) Urine Ketones (Negative) Urine Blood (Negative) Urine Bacteria (None) /hpf Urine Mucus (None) /hpf Urine Osmolality (400-1100) mOsm/kg 05/25/23 05/25/23 05/25/23 Range/Units 00:11 03:10 06:40 WBC 15.9 H (3.8-10.6) k/uL RBC 3.22 L (4.30-5.90) m/uL Hgb 12.2 L (13.0-17.5) gm/dL Hct 35.8 L (39.0-53.0) % MCV 111.0 H (80.0-100.0) fL MCH 37.7 H (25.0-35.0) pg Plt Count 88 L (150-450) k/uL Neutrophils # 13.5 H (1.3-7.7) k/uL Neutrophils # (Manual) (1.3-7.7) k/uL Lymphocytes # (Manual) (1.0-4.8) k/uL Monocytes # 1.1 H (0-1.0) k/uL Macrocytosis Marked A PT (10.0-12.5) sec INR (<1.2) APTT (22.0-30.0) sec Sodium 120 L (137-145) mmol/L Chloride 95 L (98-107) mmol/L Carbon Dioxide 13 L (22-30) mmol/L Creatinine (0.66-1.25) mg/dL Osmolality (275-295) mOsm/kg Plasma Lactic Acid Tom (0.7-2.0) mmol/L Calcium 7.6 L (8.4-10.2) mg/dL Total Bilirubin (0.2-1.3) mg/dL AST (17-59) U/L Alkaline Phosphatase (38-126) U/L Troponin I (0.000-0.034) ng/mL Albumin (3.5-5.0) g/dL Procalcitonin (0.02-0.09) ng/mL Urine Protein (Negative) Urine Ketones (Negative) Urine Blood (Negative) Urine Bacteria (None) /hpf Urine Mucus (None) /hpf Urine Osmolality 384 L (400-1100) mOsm/kg 05/25/23 05/25/23 05/25/23 Range/Units 06:40 06:40 06:40 WBC (3.8-10.6) k/uL RBC (4.30-5.90) m/uL Hgb (13.0-17.5) gm/dL Hct (39.0-53.0) % MCV (80.0-100.0) fL MCH (25.0-35.0) pg Plt Count (150-450) k/uL Neutrophils # (1.3-7.7) k/uL Neutrophils # (Manual) (1.3-7.7) k/uL Lymphocytes # (Manual) (1.0-4.8) k/uL Monocytes # (0-1.0) k/uL Macrocytosis PT 13.9 H (10.0-12.5) sec INR 1.3 H (<1.2) APTT (22.0-30.0) sec Sodium 121 L (137-145) mmol/L Chloride 94 L (98-107) mmol/L Carbon Dioxide 16 L (22-30) mmol/L Creatinine 0.56 L (0.66-1.25) mg/dL Osmolality 260 L (275-295) mOsm/kg Plasma Lactic Acid Tom (0.7-2.0) mmol/L Calcium 7.6 L (8.4-10.2) mg/dL Total Bilirubin (0.2-1.3) mg/dL AST (17-59) U/L Alkaline Phosphatase (38-126) U/L Troponin I (0.000-0.034) ng/mL Albumin (3.5-5.0) g/dL Procalcitonin (0.02-0.09) ng/mL Urine Protein (Negative) Urine Ketones (Negative) Urine Blood (Negative) Urine Bacteria (None) /hpf Urine Mucus (None) /hpf Urine Osmolality (400-1100) mOsm/kg Microbiology - Last 24 Hours (Table) 05/24/23 17:40 Blood Culture Gram Stain - Preliminary Blood 05/24/23 17:25 Blood Culture Gram Stain - Preliminary Blood
[2023-05-25 15:21] LABS: Sodium 122 mmol/L (137-145)
[2023-05-25] MEDS: SODIUM BICARBONATE TAB 650 MG TAB PO SCH (15:56)
[2023-05-25] MEDS: METOPROLOL TARTRATE 12.5 MG TAB PO SCH (15:56)
[2023-05-25] MEDS: SODIUM CHLORIDE TAB 1 GM TAB PO SCH (15:56)
[2023-05-25] MEDS: ACETAMINOPHEN TAB 325 MG TAB PO PRN (20:01)
[2023-05-25] MEDS ORDERED: AZITHROMYCIN 500 MG in SODIUM CHLORIDE 0.9% 250 ML IVPB SCH (21:00)
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
--- NOTE | 2023-05-25 21:40 | CONS ---
CONSULTATION Mr. Jose Raul Lentz is a patient who is 63 years of age, came into the hospital with what seems to be more or less some altered mentation, not oriented, received IV fluids. His lactic acid levels were high and this has improved. He feels better now. He is much better oriented. His blood culture positive for methicillin sensitive Staph aureus. Source is unclear. I was asked to see him mainly because of the elevated troponin on this patient. He has multiple other issues in the form of hyponatremia, sepsis, and also has episodes of paroxysmal atrial fibrillation. He is resting comfortably, appears somewhat under nourished and seems to be well oriented, asks appropriate questions. Denies any chest pain or shortness of breath. PAST MEDICAL HISTORY: Remarkable for multiple back surgeries. He apparently had about a year ago and had spinal infections with bacteremia. He also has other issues as well in the form of dehydration, hyponatremia. He has had history of hypertension as well. No documented evidence of prior myocardial infarction or CVA. His presentation was more or less like with sepsis and also what seemed to be an acute encephalopathy type picture that has resolved. He is resting comfortably at the time of my evaluation. LABORATORY DATA: Suggests that his troponin is elevated. It was 2.2 and started at 1.9. He also had a high lactic acid levels at 3.1, which has improved. Hyponatremia persists. He is positive for pneumonia with a procalcitonin level of 9.3. Chest x-ray suggests possible right-sided pneumonia. PHYSICAL EXAMINATION: VITAL SIGNS: Blood pressure 108/70; pulse rate about 100 to 110, irregular. HEENT: Unremarkable. Fundus was not examined by me. NECK: Supple. No JVD. I do not hear a carotid bruit. HEART: Reveals S1 and S2 with tachycardia, short systolic murmur. LUNGS: Reveal bilateral decent air entry. ABDOMEN: Soft. LOWER EXTREMITIES: Diminished pulses. CENTRAL NERVOUS SYSTEM: Grossly within normal limits. Generalized weakness noted. IMPRESSION: 1. Paroxysmal atrial fibrillation, EKG revealed initially sinus mechanism with a right bundle-branch block pattern and a repeat EKG this morning revealed atrial fibrillation with rapid ventricular rate and right bundle-branch block pattern, nonspecific ST-T changes. 2. Sepsis with methicillin resistant Staph aureus bacteremia. 3. Hyponatremia. 4. Multiple previous back surgeries. 5. Under nourished state. 6. History of previous back surgeries. RECOMMENDATIONS: In addition to antibiotics and ID consult and further evaluation, I am recommending IV Cardizem for rate control, start a small dose of beta-souleymane, place him on IV heparin which he is on and obtain echocardiogram to assess LV function. Prognosis remains guarded. Thank you very much for the consult. MMODL / IJN: [id number] /
[2023-05-26 04:12] LABS: Basophils % (A) 0 %; Eosinophils # (A) 0.1 k/uL (0-0.7); Eosinophils % (A) 0 %; HCT 35.8 % (39.0-53.0); HGB 11.7 gm/dL (13.0-17.5); Lymphocytes # (A) 1.1 k/uL (1.0-4.8); Lymphocytes % (A) 7 %; MCHC 32.6 g/dL (31.0-37.0); MCV 113.2 fL (80.0-100.0); Macrocytosis Marked; Monocytes # (A) 0.6 k/uL (0-1.0); Monocytes % (A) 4 %; Neutrophils # (A) 14.3 k/uL (1.3-7.7); Neutrophils % (A) 87 %; RBC 3.16 m/uL (4.30-5.90); RDW 12.1 % (11.5-15.5); WBC 16.4 k/uL (3.8-10.6)
[2023-05-26 04:22] LABS: Platelet Count 92 k/uL (150-450)
[2023-05-26 04:48] LABS: ALT 25 U/L (4-49); AST 54 U/L (17-59); African American GFR (CKD) >90 (>60 ml/min/1.73 sqM); Albumin 2.5 g/dL (3.5-5.0); Alkaline Phosphatase 140 U/L (38-126); Anion Gap 7 mmol/L; Blood Urea Nitrogen 21 mg/dL (9-20); Calcium 7.8 mg/dL (8.4-10.2); Carbon Dioxide 20 mmol/L (22-30); Chloride 98 mmol/L (98-107); Glucose 95 mg/dL (74-99); Non-African American GFR(CKD) >90 (>60 ml/min/1.73 sqM); Potassium 3.8 mmol/L (3.5-5.1); Sodium 125 mmol/L (137-145); Total Bilirubin 0.6 mg/dL (0.2-1.3); Total Protein 5.6 g/dL (6.3-8.2)
[2023-05-26 05:01] LABS: C Reactive Protein 19.5 mg/dL (<1.0)
[2023-05-26 09:08] LABS: Erythrocyte Sedimentation Rate 89 mm/Hr (0-20)
--- NOTE | 2023-05-26 10:55 | P.PN ---
Subjective Patient is seen in follow-up for hyponatremia. Sodium level 125 this morning. Blood pressure stable. No vomiting or diarrhea. Vital signs are stable. General: No acute distress. HEENT: Head exam is unremarkable. LUNGS: No audible rhonchi or wheezes. HEART: Rate and Rhythm are regular. ABDOMEN: Obese, nontender. EXTREMITITES: No edema. Objective - Vital Signs Vital signs: Vital Signs Temp 97.6 F 05/26/23 08:00 Pulse 78 05/26/23 08:00 Resp 16 05/26/23 08:00 BP 117/58 05/26/23 08:00 Pulse Ox 97 05/26/23 08:00 FiO2 Intake & Output 05/25/23 05/26/23 05/26/23 18:59 06:59 18:59 Intake Total 220.912 946.08 Output Total 150 Balance 220.912 796.08 Weight 106.8 kg Intake: Intake, IV Titration 220.912 426.08 Amount Diltiazem 125 mg In 154 Sodium Chloride 0.9% 100 ml @ 7.5 MG/HR 7.5 mls/hr IV .[id number] [facility] Rx#: [id number] Heparin Sod,Pork in 0.45% 220.912 172.08 NaCl 25,000 unit In 0.45 % NaCl 1 250ml.bag @ 9.36 UNITS/KG/HR 9.996 mls/hr IV .Q24H [facility] Rx#: [id number] ceFAZolin 2 gm In Sodium 100 Chloride 0.9% 50 ml @ 100 mls/hr IVPB Q8H [facility] Rx#: [id number] Oral 520 Output: Urine 150 Other: Voiding Method Indwelling Catheter - Labs CBC & Chem 7: 05/26/23 03:46 05/26/23 03:46 Labs: Abnormal Lab Results - Last 24 Hours (Table) 05/25/23 05/25/23 05/25/23 Range/Units 06:40 14:55 16:51 WBC (3.8-10.6) k/uL RBC (4.30-5.90) m/uL Hgb (13.0-17.5) gm/dL Hct (39.0-53.0) % MCV (80.0-100.0) fL MCH (25.0-35.0) pg Plt Count (150-450) k/uL Neutrophils # (1.3-7.7) k/uL Macrocytosis ESR (0-20) mm/Hr APTT (22.0-30.0) sec Sodium 122 L (137-145) mmol/L Carbon Dioxide (22-30) mmol/L BUN (9-20) mg/dL Creatinine (0.66-1.25) mg/dL Osmolality 260 L (275-295) mOsm/kg Calcium (8.4-10.2) mg/dL Alkaline Phosphatase (38-126) U/L C-Reactive Protein (<1.0) mg/dL Total Protein (6.3-8.2) g/dL Albumin (3.5-5.0) g/dL Ur Random Sodium <20 L (40-220) mmol/L 05/25/23 05/25/23 05/26/23 Range/Units 20:00 20:00 03:46 WBC 16.4 H (3.8-10.6) k/uL RBC 3.16 L (4.30-5.90) m/uL Hgb 11.7 L (13.0-17.5) gm/dL Hct 35.8 L (39.0-53.0) % MCV 113.2 H (80.0-100.0) fL MCH 37.0 H (25.0-35.0) pg Plt Count 92 L (150-450) k/uL Neutrophils # 14.3 H (1.3-7.7) k/uL Macrocytosis Marked A ESR 89 H (0-20) mm/Hr APTT 36.8 H (22.0-30.0) sec Sodium 123 L (137-145) mmol/L Carbon Dioxide (22-30) mmol/L BUN (9-20) mg/dL Creatinine (0.66-1.25) mg/dL Osmolality (275-295) mOsm/kg Calcium (8.4-10.2) mg/dL Alkaline Phosphatase (38-126) U/L C-Reactive Protein (<1.0) mg/dL Total Protein (6.3-8.2) g/dL Albumin (3.5-5.0) g/dL Ur Random Sodium (40-220) mmol/L 05/26/23 05/26/23 Range/Units 03:46 03:46 WBC (3.8-10.6) k/uL RBC (4.30-5.90) m/uL Hgb (13.0-17.5) gm/dL Hct (39.0-53.0) % MCV (80.0-100.0) fL MCH (25.0-35.0) pg Plt Count (150-450) k/uL Neutrophils # (1.3-7.7) k/uL Macrocytosis ESR (0-20) mm/Hr APTT 35.5 H (22.0-30.0) sec Sodium 125 L (137-145) mmol/L Carbon Dioxide 20 L (22-30) mmol/L BUN 21 H (9-20) mg/dL Creatinine 0.45 L (0.66-1.25) mg/dL Osmolality (275-295) mOsm/kg Calcium 7.8 L (8.4-10.2) mg/dL Alkaline Phosphatase 140 H (38-126) U/L C-Reactive Protein 19.5 H (<1.0) mg/dL Total Protein 5.6 L (6.3-8.2) g/dL Albumin 2.5 L (3.5-5.0) g/dL Ur Random Sodium (40-220) mmol/L Microbiology - Last 24 Hours (Table) 05/24/23 17:40 Blood Culture Gram Stain - Preliminary Blood 05/24/23 17:25 Blood Culture Gram Stain - Preliminary Blood Assessment and Plan Plan: Assessment: 1. Hyponatremia from poor solute intake. Urine osmolality 384. Urine sodium less than 20. TSH normal. No improvement in sodium level with normal saline. 2. Gram-positive bacteremia. Concern for pneumonia. Also concern for cholecystitis. HIDA scan pending. 3. Benign hypertension. Controlled. 4. Metabolic acidosis secondary to lactic acidosis and IV fluids. On oral bicarb. Better. 5. A-fib with RVR maintained on Cardizem drip. Plan: Maintain sodium chloride tab. Maintain 1200 cc fluid restriction. Follow-up cultures. Repeat labs in the morning. Follow-up echocardiogram.
[2023-05-26] MEDS: TAMSULOSIN 0.4 MG CAP.ER.24H PO SCH (11:18)
--- NOTE | 2023-05-26 12:47 | P.PN ---
Subjective Progress Note Date: 05/26/23 History of present illness: This is A 63-year-old male with past medical history spinal infection with bacteremia, history of hypertension. Patient presented to the hospital with altered mentation and received IV fluids. Lactic acids were high and he improved. His blood culture was positive for MRSA. We were consulted for elevated troponins. Patient also treated for hyponatremia, sepsis and paroxysmal atrial fibrillation. Patient is currently in atrial fibrillation in the 80s. He is on Cardizem drip at 7.5 mg. He is also on heparin drip. We are waiting for echocardiogram to be reported. Blood pressure 98/58, heart rate 78, pulse ox 96% on room air. Repeat blood work reveals WBC 17.4, hemoglobin 1.7, platelet count 92. Sed rate 89. Sodium 125, potassium 3.8, BUN 21 creatinine 0.45. Alkaline phosphatase 140. C-reactive protein 19.5. Albumin 2.5. TSH 0.643. Physical examination: Gen: This is a 63-year-old male. He is in no acute distress. VS: reviewed HEENT: Head is atraumatic, normocephalic. Pupils equal, round. Sclerae is anicteric. NECK: Supple. No JVD. LUNGS: Bilateral air entry. No intercostal retractions. HEART: Irregular rate and rhythm. Short systolic murmur. EXTREMITIES: No pedal edema. No calf tenderness. NEUROLOGICAL: Patient is awake, alert and oriented. Assessment: Paroxysmal atrial fibrillation, initially sinus mechanism with right bundle branch block pattern and repeat EKG was atrial fibrillation with RVR with right bundle branch block pattern, nonspecific ST-T wave changes. Sepsis with MRSA bacteremia Elevated troponin possibly related to sepsis and atrial fibrillation with RVR Hyponatremia Multiple back surgeries Plan: Will plan to discontinue Cardizem drip and start patient on Lopressor 50 mg twice daily Continue heparin drip until echocardiogram has been reported as patient may be candidate for cardiac catheterization Continue treatment for sepsis and bacteremia Patient will be started on Eliquis once decision is made regarding cardiac catheterization. This has been discussed with the patient and . Further recommendations to follow based upon clinical course Nurse practitioner note has been reviewed, I agree with documented findings and plan of care. Patient was seen and examined. Objective - Vital Signs Vital signs: Vital Signs Temp 97.6 F 05/26/23 08:00 Pulse 78 05/26/23 08:00 Resp 16 05/26/23 08:00 BP 117/58 05/26/23 08:00 Pulse Ox 97 05/26/23 08:00 FiO2 Intake & Output 05/25/23 05/26/23 05/26/23 18:59 06:59 18:59 Intake Total 220.912 946.08 Output Total 150 Balance 220.912 796.08 Weight 106.8 kg Intake: Intake, IV Titration 220.912 426.08 Amount Diltiazem 125 mg In 154 Sodium Chloride 0.9% 100 ml @ 7.5 MG/HR 7.5 mls/hr IV [id number] Rx#: [id number] Heparin Sod,Pork in 0.45% 220.912 172.08 NaCl 25,000 unit In 0.45 % NaCl 1 250ml.bag @ 9.36 UNITS/KG/HR 9.996 mls/hr IV .Q24H [facility] Rx#: [id number] ceFAZolin 2 gm In Sodium 100 Chloride 0.9% 50 ml @ 100 mls/hr IVPB Q8H [facility] Rx#: [id number] Oral 520 Output: Urine 150 Other: Voiding Method Indwelling Catheter - Labs CBC & Chem 7: 05/26/23 03:46 05/26/23 03:46 Labs: Abnormal Lab Results - Last 24 Hours (Table) 05/25/23 05/25/23 05/25/23 Range/Units 06:40 14:55 16:51 WBC (3.8-10.6) k/uL RBC (4.30-5.90) m/uL Hgb (13.0-17.5) gm/dL Hct (39.0-53.0) % MCV (80.0-100.0) fL MCH (25.0-35.0) pg Plt Count (150-450) k/uL Neutrophils # (1.3-7.7) k/uL Macrocytosis ESR (0-20) mm/Hr APTT (22.0-30.0) sec Sodium 122 L (137-145) mmol/L Carbon Dioxide (22-30) mmol/L BUN (9-20) mg/dL Creatinine (0.66-1.25) mg/dL Osmolality 260 L (275-295) mOsm/kg Calcium (8.4-10.2) mg/dL Alkaline Phosphatase (38-126) U/L C-Reactive Protein (<1.0) mg/dL Total Protein (6.3-8.2) g/dL Albumin (3.5-5.0) g/dL Ur Random Sodium <20 L (40-220) mmol/L 05/25/23 05/25/23 05/26/23 Range/Units 20:00 20:00 03:46 WBC 16.4 H (3.8-10.6) k/uL RBC 3.16 L (4.30-5.90) m/uL Hgb 11.7 L (13.0-17.5) gm/dL Hct 35.8 L (39.0-53.0) % MCV 113.2 H (80.0-100.0) fL MCH 37.0 H (25.0-35.0) pg Plt Count 92 L (150-450) k/uL Neutrophils # 14.3 H (1.3-7.7) k/uL Macrocytosis Marked A ESR 89 H (0-20) mm/Hr APTT 36.8 H (22.0-30.0) sec Sodium 123 L (137-145) mmol/L Carbon Dioxide (22-30) mmol/L BUN (9-20) mg/dL Creatinine (0.66-1.25) mg/dL Osmolality (275-295) mOsm/kg Calcium (8.4-10.2) mg/dL Alkaline Phosphatase (38-126) U/L C-Reactive Protein (<1.0) mg/dL Total Protein (6.3-8.2) g/dL Albumin (3.5-5.0) g/dL Ur Random Sodium (40-220) mmol/L 05/26/23 05/26/23 Range/Units 03:46 03:46 WBC (3.8-10.6) k/uL RBC (4.30-5.90) m/uL Hgb (13.0-17.5) gm/dL Hct (39.0-53.0) % MCV (80.0-100.0) fL MCH (25.0-35.0) pg Plt Count (150-450) k/uL Neutrophils # (1.3-7.7) k/uL Macrocytosis ESR (0-20) mm/Hr APTT 35.5 H (22.0-30.0) sec Sodium 125 L (137-145) mmol/L Carbon Dioxide 20 L (22-30) mmol/L BUN 21 H (9-20) mg/dL Creatinine 0.45 L (0.66-1.25) mg/dL Osmolality (275-295) mOsm/kg Calcium 7.8 L (8.4-10.2) mg/dL Alkaline Phosphatase 140 H (38-126) U/L C-Reactive Protein 19.5 H (<1.0) mg/dL Total Protein 5.6 L (6.3-8.2) g/dL Albumin 2.5 L (3.5-5.0) g/dL Ur Random Sodium (40-220) mmol/L Microbiology - Last 24 Hours (Table) 05/24/23 17:40 Blood Culture Gram Stain - Preliminary Blood 05/24/23 17:25 Blood Culture Gram Stain - Preliminary Blood
--- NOTE | 2023-05-26 13:28 | CA ---
Transthoracic Echo Report Name: Jose Raul Lentz Age: 63 Gender: M : 1960 Exam Date: 05/26/2023 07:27 Exam Location: [facility] Ht (in): 69 Wt (lb): 235 Ordering Physician: Connor Tobin MD Attending/Referring Phys: Vocational Placement Specialist Nicole Mera RCS Procedure CPT: Indications: nstemi Cardiac Hx: Technical Quality: Fair Contrast 1: Total Dose (mL): Contrast 2: Total Dose (mL): MEASUREMENTS (Male / Female) Normal Values 2D ECHO LV Diastolic Diameter PLAX 6.1 cm 4.2 - 5.9 / 3.9 - 5.3 cm LV Systolic Diameter PLAX 4.1 cm IVS Diastolic Thickness 1.2 cm 0.6 - 1.0 / 0.6 - 0.9 cm LVPW Diastolic Thickness 1.2 cm 0.6 - 1.0 / 0.6 - 0.9 cm LV Relative Wall Thickness 0.4 RV Internal Dim ED PLAX 3.4 cm LVOT Diameter 2.4 cm LV Diastolic Volume MOD BP 247.9 cm??? 67 - 155 / 56 - 104 cm??? LV Systolic Volume MOD BP 135.0 cm??? 22 - 58 / 19 - 49 cm??? LV Ejection Fraction MOD BP 45.5 % >= 55 % LV Cardiac Index MOD BP 4093.7 cm???/min???m??? LV Diastolic Volume MOD 4C 269.9 cm??? LV Systolic Volume MOD 4C 132.0 cm??? LV Ejection Fraction MOD 4C 51.1 % LV Cardiac Index MOD 4C 4999.3 cm???/min???m??? LV Diastolic Length 4C 10.2 cm LV Systolic Length 4C 8.8 cm LV Diastolic Volume MOD 2C 226.7 cm??? LV Systolic Volume MOD 2C 135.6 cm??? LV Ejection Fraction MOD 2C 40.2 % LV Cardiac Index MOD 2C 3302.8 cm???/min???m??? LV Diastolic Length 2C 10.1 cm LV Systolic Length 2C 8.9 cm LA Volume 119.1 cm??? 18 - 58 / 22 - 52 cm??? LA Volume Index 51.4 cm???/m??? 16 - 28 cm???/m??? DOPPLER AV Peak Velocity 195.8 cm/s AV Peak Gradient 15.3 mmHg AV Mean Velocity 138.1 cm/s AV Mean Gradient 8.6 mmHg AV Velocity Time Integral 32.6 cm LVOT Peak Velocity 141.9 cm/s LVOT Peak Gradient 8.1 mmHg LVOT Velocity Time Integral 23.3 cm LVOT Stroke Volume 103.6 cm??? LVOT Stroke Volume Index 46.8 ml/m??? LVOT Cardiac Index 3754.7 cm???/min???m??? AV Area Cont Eq vti 3.2 cm??? AV Area Cont Eq pk 3.2 cm??? PV Peak Velocity 89.5 cm/s PV Peak Gradient 3.2 mmHg FINDINGS Left Ventricle Left ventricular ejection fraction is estimated at 45-50 %. Mildly increased septal wall thickness. Mildly increased left ventricular diastolic diameter. Severely increased left ventricular diastolic volume. Severely increased left ventricular systolic volume. Mildly decreased left ventricular ejection fraction. Anteroapical hypokinesis. Right Ventricle Mild right ventricular dilatation with normal function. Unable to estimate right ventricular systolic pressure. Right Atrium Moderate right atrial dilatation. Left Atrium Severely increased left atrial volume. Mildly increased left atrial area. Mitral Valve Mitral valve thickened. No evidence for mitral valve prolapse. No mitral stenosis. Mild mitral regurgitation. Aortic Valve Trileaflet aortic valve. Aortic valve sclerosis. No aortic stenosis. Mild aortic regurgitation. Tricuspid Valve Structurally normal tricuspid valve. No tricuspid prolapse. No tricuspid stenosis. No tricuspid regurgitation. Pulmonic Valve Structurally normal pulmonic valve. No pulmonic stenosis. Trace pulmonic regurgitation. Pericardium No pericardial effusion. Aorta Normal size aortic root and proximal ascending aorta. CONCLUSIONS Technically difficult study. 1. Mildly impaired left ventricle systolic function with segmental wall motion abnormality 2. Limited Doppler study was mild mitral and aortic regurgitation Previewed by: Dr. Matilda Henson MD (Electronically Signed) Final Date: 26 May 2023 13:27
[2023-05-26] MEDS ORDERED: NITROGLYCERIN SL TABS 0.4 MG TAB SUBLINGUAL PRN (13:42)
[2023-05-26] MEDS ORDERED: ALPRAZolam 0.25 MG TAB PO PRN (13:42)
[2023-05-26] MEDS: HEPARIN SODIUM 1,000 UN/ML (10ML VL) IV PRN (14:01)
--- NOTE | 2023-05-26 14:16 | P.PN ---
Subjective Progress Note Date: 05/26/23 Hospital Course: 63-year-old male with history of hypertension presenting with confusion and de hydration. In the ED, temperature was 97.7, pulse 110, blood pressure 87/66, saturating at 96% on room air. WBC 15.6, hemoglobin 13.5, platelet 112, INR 1.2, sodium 123, potassium 4, bicarb 16, anion gap 14, BUN 17, creatinine 0.59, lactate 3.3, total bili 1.5, AST 68, ALT 27, ALP 186, troponin 2.37, urinalysis negative for nitrites and leukocyte esterase. EKG shows supraventricular tachycardia, likely sinus, right bundle branch block chest x-ray shows underinflated, opacity near the right hilum. Patient being admitted for severe dehydration, NSTEMI and sepsis secondary to pneumonia. Patient is also found to be bacteremic, growing MSSA. ID also consulted. Echocardiogram shows mildly im paired systolic function with wall motion abnormalities however, no vegetations noted. Nephrology also consulted due to hyponatremia, likely in the setting of poor solute intake, improving. Subjective: Patient seen and examined at bedside. No acute events overnight. Patient claims that he is feeling a lot better today. He is adamant about leaving during holidays. Still having persistent back pain. Pertinent positives and negatives as discussed above, a complete review of systems was performed and all other systems are negative. Vitals Signs Reviewed. General: Nontoxic, no distress, appears at stated age Derm: Warm, dry Head: Atraumatic, normocephalic, symmetric Eyes: EOMI, no lid lag, anicteric sclera Mouth: No lip lesion, mucus membranes moist Cardiovascular: S1S2 tachycardic, irregular, systolic murmur Lungs: CTA bilateral, no rhonchi, no rales, no accessory muscle use Abdominal: Soft, nontender to palpation, no guarding, no appreciable organomegaly Ext: No gross muscle atrophy, no edema, no contractures, lumbar spinal tenderness Neuro: CN II-XI grossly intact, no focal neuro deficits Psych: Alert, oriented, appropriate affect Data Reviewed Today: Pertinent Labs: WBC 16.4, hemoglobin 11.7, platelet 92, sodium 125, creatinine 0.45, CRP 19.5, ESR 89 Imaging: No new imaging Assessment and Plan: Patient is severely ill, needs close monitoring. Sepsis, possibly secondary to lumbar spine infection MSSA bacteremia Severe dehydration, resolved Persistent hyponatremia, now euvolemic High anion gap metabolic acidosis, improving Lactic acidosis, resolved NSTEMI, likely type II Systolic cardiomyopathy Paroxysmal atrial fibrillation with RVR Hyperbilirubinemia, resolved Thrombocytopenia, likely in the setting of sepsis Acute encephalopathy, resolved Continue on cefazolin 2 g IV every 8 hours - Unclear source, patient does have significant lumbar pain, MRI spine pending - ID consulted, continue current antibiotics - Nephrology note reviewed, on sodium chloride tab 1 g twice daily, sodium bicarb 650 twice daily, on fluid restriction -Cardiology note reviewed, continue on heparin drip, may need cardiac cath, Cardizem to be discontinued, started on metoprolol 50 twice daily - No active chest pain - Continue aspirin 81 mg, atorvastatin 40 mg DVT ppx: Heparin drip Code status: Full code Anticipated discharge place: Pending clinical course Anticipated discharge time: Pending clinical course Objective - Vital Signs Vital signs: Vital Signs Temp 98.6 F 05/26/23 11:34 Pulse 78 05/26/23 13:45 Resp 14 05/26/23 13:45 BP 98/58 05/26/23 11:34 Pulse Ox 96 05/26/23 11:34 FiO2 Intake & Output 05/25/23 05/26/23 05/26/23 18:59 06:59 18:59 Intake Total 220.912 946.08 520.844 Output Total 150 Balance 220.912 796.08 520.844 Weight 106.8 kg Intake: Intake, IV Titration 220.912 426.08 120.844 Amount Diltiazem 125 mg In 154 Sodium Chloride 0.9% 100 ml @ 7.5 MG/HR 7.5 mls/hr IV .[id number] [facility] Rx#: [id number] Heparin Sod,Pork in 0.45% 220.912 172.08 120.844 NaCl 25,000 unit In 0.45 % NaCl 1 250ml.bag @ 9.36 UNITS/KG/HR 9.996 mls/hr IV .Q24H [facility] Rx#: [id number] ceFAZolin 2 gm In Sodium 100 Chloride 0.9% 50 ml @ 100 mls/hr IVPB Q8H [facility] Rx#: [id number] Oral 520 400 Output: Urine 150 Other: Voiding Method Indwelling Catheter Indwelling Catheter - Labs CBC & Chem 7: 05/26/23 03:46 05/26/23 03:46 Labs: Abnormal Lab Results - Last 24 Hours (Table) 05/25/23 05/25/23 05/25/23 Range/Units 14:55 16:51 20:00 WBC (3.8-10.6) k/uL RBC (4.30-5.90) m/uL Hgb (13.0-17.5) gm/dL Hct (39.0-53.0) % MCV (80.0-100.0) fL MCH (25.0-35.0) pg Plt Count (150-450) k/uL Neutrophils # (1.3-7.7) k/uL Macrocytosis ESR (0-20) mm/Hr APTT (22.0-30.0) sec Sodium 122 L 123 L (137-145) mmol/L Carbon Dioxide (22-30) mmol/L BUN (9-20) mg/dL Creatinine (0.66-1.25) mg/dL Calcium (8.4-10.2) mg/dL Alkaline Phosphatase (38-126) U/L C-Reactive Protein (<1.0) mg/dL Total Protein (6.3-8.2) g/dL Albumin (3.5-5.0) g/dL Ur Random Sodium <20 L (40-220) mmol/L 05/25/23 05/26/23 05/26/23 Range/Units 20:00 03:46 03:46 WBC 16.4 H (3.8-10.6) k/uL RBC 3.16 L (4.30-5.90) m/uL Hgb 11.7 L (13.0-17.5) gm/dL Hct 35.8 L (39.0-53.0) % MCV 113.2 H (80.0-100.0) fL MCH 37.0 H (25.0-35.0) pg Plt Count 92 L (150-450) k/uL Neutrophils # 14.3 H (1.3-7.7) k/uL Macrocytosis Marked A ESR 89 H (0-20) mm/Hr APTT 36.8 H (22.0-30.0) sec Sodium 125 L (137-145) mmol/L Carbon Dioxide 20 L (22-30) mmol/L BUN 21 H (9-20) mg/dL Creatinine 0.45 L (0.66-1.25) mg/dL Calcium 7.8 L (8.4-10.2) mg/dL Alkaline Phosphatase 140 H (38-126) U/L C-Reactive Protein 19.5 H (<1.0) mg/dL Total Protein 5.6 L (6.3-8.2) g/dL Albumin 2.5 L (3.5-5.0) g/dL Ur Random Sodium (40-220) mmol/L 05/26/23 05/26/23 Range/Units 03:46 11:33 WBC (3.8-10.6) k/uL RBC (4.30-5.90) m/uL Hgb (13.0-17.5) gm/dL Hct (39.0-53.0) % MCV (80.0-100.0) fL MCH (25.0-35.0) pg Plt Count (150-450) k/uL Neutrophils # (1.3-7.7) k/uL Macrocytosis ESR (0-20) mm/Hr APTT 35.5 H 35.3 H (22.0-30.0) sec Sodium (137-145) mmol/L Carbon Dioxide (22-30) mmol/L BUN (9-20) mg/dL Creatinine (0.66-1.25) mg/dL Calcium (8.4-10.2) mg/dL Alkaline Phosphatase (38-126) U/L C-Reactive Protein (<1.0) mg/dL Total Protein (6.3-8.2) g/dL Albumin (3.5-5.0) g/dL Ur Random Sodium (40-220) mmol/L Microbiology - Last 24 Hours (Table) 05/24/23 17:25 Blood Culture Gram Stain - Preliminary Blood Blood Culture - Preliminary Presumptive Staph aureus 05/24/23 17:40 Blood Culture Gram Stain - Preliminary Blood Blood Culture - Preliminary Presumptive Staph aureus
[2023-05-26] MEDS: SODIUM CHLORIDE 0.9% 1,000 ML in EMPTY BAG 1 BAG IV ONE (15:12)
--- NOTE | 2023-05-26 15:56 | P.PN ---
Subjective Progress Note Date: 05/26/23 Principal diagnosis: Reason for follow-up is MSSA bacteremia and possible discitis Patient is a 63-year-old male with a past medical history significant for hypertension patient apparently did have a chronic back pain for which the patient did have surgery done by Dr. Love and did have a lumbar spinal fusion, patient to present to the hospital with weakness confusion and debility he did have a fever and noticed to have positive blood culture with MSSA. On today's visit that is 05/26/2023,the patient did have resolution of his fever and is afebrile today, patient is on room air not requiring supplemental oxygen and denies any shortness of breath no chest pain did have occasional cough.Patient denies having any nausea or vomiting, no abdominal pain and no diarrhea still complaining of back pain but no worsening. Patient did have a white count of 16.4 ESR is 89 creatinine 0.45 Objective - Vital Signs Vital signs: Vital Signs Temp 98.6 F 05/26/23 11:34 Pulse 78 05/26/23 13:45 Resp 14 05/26/23 13:45 BP 98/58 05/26/23 11:34 Pulse Ox 96 05/26/23 11:34 FiO2 Intake & Output 05/25/23 05/26/23 05/26/23 18:59 06:59 18:59 Intake Total 220.912 946.08 520.844 Output Total 150 Balance 220.912 796.08 520.844 Weight 106.8 kg Intake: Intake, IV Titration 220.912 426.08 120.844 Amount Diltiazem 125 mg In 154 Sodium Chloride 0.9% 100 ml @ 7.5 MG/HR 7.5 mls/hr IV .[id number] [facility] Rx#: [id number] Heparin Sod,Pork in 0.45% 220.912 172.08 120.844 NaCl 25,000 unit In 0.45 % NaCl 1 250ml.bag @ 9.36 UNITS/KG/HR 9.996 mls/hr IV .Q24H [facility] Rx#: [id number] ceFAZolin 2 gm In Sodium 100 Chloride 0.9% 50 ml @ 100 mls/hr IVPB Q8H [facility] Rx#: [id number] Oral 520 400 Output: Urine 150 Other: Voiding Method Indwelling Catheter Indwelling Catheter - Exam GENERAL DESCRIPTION: Middle-age male lying in bed in no distress RESPIRATORY SYSTEM: Unlabored breathing , decreased breath sounds at bases HEART: S1 S2 regular rate and rhythm , ABDOMEN: Soft , no tenderness EXTREMITIES: No edema feet - Labs CBC & Chem 7: 05/26/23 03:46 05/26/23 03:46 Labs: Abnormal Lab Results - Last 24 Hours (Table) 05/25/23 05/25/23 05/25/23 Range/Units 14:55 16:51 20:00 WBC (3.8-10.6) k/uL RBC (4.30-5.90) m/uL Hgb (13.0-17.5) gm/dL Hct (39.0-53.0) % MCV (80.0-100.0) fL MCH (25.0-35.0) pg Plt Count (150-450) k/uL Neutrophils # (1.3-7.7) k/uL Macrocytosis ESR (0-20) mm/Hr APTT (22.0-30.0) sec Sodium 122 L 123 L (137-145) mmol/L Carbon Dioxide (22-30) mmol/L BUN (9-20) mg/dL Creatinine (0.66-1.25) mg/dL Calcium (8.4-10.2) mg/dL Alkaline Phosphatase (38-126) U/L C-Reactive Protein (<1.0) mg/dL Total Protein (6.3-8.2) g/dL Albumin (3.5-5.0) g/dL Ur Random Sodium <20 L (40-220) mmol/L 05/25/23 05/26/23 05/26/23 Range/Units 20:00 03:46 03:46 WBC 16.4 H (3.8-10.6) k/uL RBC 3.16 L (4.30-5.90) m/uL Hgb 11.7 L (13.0-17.5) gm/dL Hct 35.8 L (39.0-53.0) % MCV 113.2 H (80.0-100.0) fL MCH 37.0 H (25.0-35.0) pg Plt Count 92 L (150-450) k/uL Neutrophils # 14.3 H (1.3-7.7) k/uL Macrocytosis Marked A ESR 89 H (0-20) mm/Hr APTT 36.8 H (22.0-30.0) sec Sodium 125 L (137-145) mmol/L Carbon Dioxide 20 L (22-30) mmol/L BUN 21 H (9-20) mg/dL Creatinine 0.45 L (0.66-1.25) mg/dL Calcium 7.8 L (8.4-10.2) mg/dL Alkaline Phosphatase 140 H (38-126) U/L C-Reactive Protein 19.5 H (<1.0) mg/dL Total Protein 5.6 L (6.3-8.2) g/dL Albumin 2.5 L (3.5-5.0) g/dL Ur Random Sodium (40-220) mmol/L 05/26/23 05/26/23 Range/Units 03:46 11:33 WBC (3.8-10.6) k/uL RBC (4.30-5.90) m/uL Hgb (13.0-17.5) gm/dL Hct (39.0-53.0) % MCV (80.0-100.0) fL MCH (25.0-35.0) pg Plt Count (150-450) k/uL Neutrophils # (1.3-7.7) k/uL Macrocytosis ESR (0-20) mm/Hr APTT 35.5 H 35.3 H (22.0-30.0) sec Sodium (137-145) mmol/L Carbon Dioxide (22-30) mmol/L BUN (9-20) mg/dL Creatinine (0.66-1.25) mg/dL Calcium (8.4-10.2) mg/dL Alkaline Phosphatase (38-126) U/L C-Reactive Protein (<1.0) mg/dL Total Protein (6.3-8.2) g/dL Albumin (3.5-5.0) g/dL Ur Random Sodium (40-220) mmol/L Microbiology - Last 24 Hours (Table) 05/24/23 17:25 Blood Culture Gram Stain - Preliminary Blood Blood Culture - Preliminary Presumptive Staph aureus 05/24/23 17:40 Blood Culture Gram Stain - Preliminary Blood Blood Culture - Preliminary Presumptive Staph aureus Assessment and Plan (1) MSSA bacteremia Current Visit: Yes Status: Acute Code(s): R78.81 - BACTEREMIA; B95.61 - METH ICILLIN SUSCEP STAPH INFCT CAUSING DIS CLASSD [id number] SNOMED Code(s): 429300440 (2) Leukocytosis Current Visit: Yes Status: Acute Code(s): D72.829 - ELEVATED WHITE BLOOD CELL COUNT, UNSPECIFIED SNOMED Code(s): 627597590 Plan: 1patient with MSSA bacteremia in this patient who did have a history of chronic back pain with recent worsening and also have a history of extensive lumbosacral spine surgery with fusion, now with a positive blood culture with MSSA, with a high clinical probability source of this bacteremia being the lumbosacral spine 2-blood cultures will be repeated document clearance of his bacteremia 3-patient did have elevated sed rate of 89 4-patient currently waiting for MRI of the lumbar spine 5-patient to continue with cefazolin 2 g-every 8 hours Family the bedside multiple question concern has been offered Dictation was produced using [employer] dictation software. please excuse any grammatical, word or spelling errors. Time with Patient: Greater than 30
[2023-05-26] MEDS: METOPROLOL TARTRATE 50 MG TAB PO SCH (20:31)
[2023-05-27] MEDS ORDERED: HEPARIN SODIUM,PORCINE 10,000 UNIT in SODIUM CHLORIDE 0.9% 1,000 ML IRRIGATION PRN (07:00)
[2023-05-27] MEDS ORDERED: HEPARIN SODIUM,PORCINE (1 ML) 2,500 UNIT in SODIUM CHLORIDE 0.9% 250 ML IRRIGATION PRN (07:00)
[2023-05-27] MEDS: ALPRAZolam 0.5 MG TAB PO PRN (09:24)
[2023-05-27] MEDS: ATORVASTATIN 80 MG TAB PO ONE (09:24)
[2023-05-27] MEDS: ASPIRIN 325 MG TAB PO ONE (09:25)
[2023-05-27 09:55] LABS: Basophils % (A) 0 %; Eosinophils # (A) 0.1 k/uL (0-0.7); Eosinophils % (A) 1 %; HGB 12.1 gm/dL (13.0-17.5); Hypochromasia Moderate; Lymphocytes # (A) 0.7 k/uL (1.0-4.8); Lymphocytes % (A) 6 %; MCH 36.6 pg (25.0-35.0); MCHC 30.9 g/dL (31.0-37.0); Macrocytosis Marked; Mean Platelet Volume 10.8; Monocytes # (A) 0.6 k/uL (0-1.0); Monocytes % (A) 5 %; Neutrophils # (A) 10.8 k/uL (1.3-7.7); Neutrophils % (A) 88 %; RBC 3.29 m/uL (4.30-5.90); RDW 12.6 % (11.5-15.5); WBC 12.3 k/uL (3.8-10.6)
[2023-05-27 09:56] LABS: African American GFR (CKD) >90 (>60 ml/min/1.73 sqM); Anion Gap 10 mmol/L; Blood Urea Nitrogen 17 mg/dL (9-20); Calcium 8.1 mg/dL (8.4-10.2); Carbon Dioxide 19 mmol/L (22-30); Chloride 98 mmol/L (98-107); Glucose 107 mg/dL (74-99); Non-African American GFR(CKD) >90 (>60 ml/min/1.73 sqM); Potassium 4.2 mmol/L (3.5-5.1); Sodium 127 mmol/L (137-145)
[2023-05-27 10:18] LABS: Platelet Count 99 k/uL (150-450)
[2023-05-27 10:19] LABS: MCV 118.4 fL (80.0-100.0)
--- NOTE | 2023-05-27 11:06 | P.PN ---
Subjective Patient is seen in follow-up for hyponatremia. Sodium level 127 this morning. Blood pressure stable. No vomiting or diarrhea. Nonoliguric. Vital signs are stable. General: No acute distress. HEENT: Head exam is unremarkable. LUNGS: No audible rhonchi or wheezes. HEART: Rate and Rhythm are regular. ABDOMEN: Obese, nontender. EXTREMITITES: No edema. Objective - Vital Signs Vital signs: Vital Signs Temp 98.2 F 05/27/23 04:00 Pulse 79 05/27/23 04:00 Resp 20 05/27/23 04:00 BP 104/77 05/27/23 04:00 Pulse Ox 98 05/26/23 23:37 FiO2 Intake & Output 05/26/23 05/27/23 05/27/23 18:59 06:59 18:59 Intake Total 570.844 125 Output Total 450 Balance 570.844 -325 Intake: Intake, IV Titration 170.844 125 Amount Diltiazem 125 mg In 125 Sodium Chloride 0.9% 100 ml @ 7.5 MG/HR 7.5 mls/hr IV .[id number] [facility] Rx#: [id number] Heparin Sod,Pork in 0.45% 120.844 NaCl 25,000 unit In 0.45 % NaCl 1 250ml.bag @ 9.36 UNITS/KG/HR 9.996 mls/hr IV .Q24H [facility] Rx#: [id number] ceFAZolin 2 gm In Sodium 50 Chloride 0.9% 50 ml @ 100 mls/hr IVPB Q8H [facility] Rx#: [id number] Oral 400 Output: Urine 450 Other: Voiding Method Indwelling Catheter Indwelling Catheter - Labs CBC & Chem 7: 05/27/23 09:06 05/27/23 09:06 Labs: Abnormal Lab Results - Last 24 Hours (Table) 05/26/23 05/26/23 05/27/23 Range/Units 11:33 19:53 09:06 WBC (3.8-10.6) k/uL RBC (4.30-5.90) m/uL Hgb (13.0-17.5) gm/dL MCV (80.0-100.0) fL MCH (25.0-35.0) pg MCHC (31.0-37.0) g/dL Plt Count (150-450) k/uL Macrocytosis APTT 35.3 H 48.7 H (22.0-30.0) sec Sodium 127 L (137-145) mmol/L Carbon Dioxide 19 L (22-30) mmol/L Creatinine 0.39 L (0.66-1.25) mg/dL Glucose 107 H (74-99) mg/dL Calcium 8.1 L (8.4-10.2) mg/dL 05/27/23 Range/Units 09:06 WBC 12.3 H (3.8-10.6) k/uL RBC 3.29 L (4.30-5.90) m/uL Hgb 12.1 L (13.0-17.5) gm/dL MCV 118.4 H D (80.0-100.0) fL MCH 36.6 H (25.0-35.0) pg MCHC 30.9 L (31.0-37.0) g/dL Plt Count 99 L (150-450) k/uL Macrocytosis Marked A APTT (22.0-30.0) sec Sodium (137-145) mmol/L Carbon Dioxide (22-30) mmol/L Creatinine (0.66-1.25) mg/dL Glucose (74-99) mg/dL Calcium (8.4-10.2) mg/dL Microbiology - Last 24 Hours (Table) 05/24/23 17:25 Blood Culture Gram Stain - Preliminary Blood Blood Culture - Preliminary Presumptive Staph aureus 05/24/23 17:40 Blood Culture Gram Stain - Preliminary Blood Blood Culture - Preliminary Presumptive Staph aureus Assessment and Plan Plan: Assessment: 1. Hyponatremia from poor solute intake. Urine osmolality 384. Urine sodium less than 20. TSH normal. No improvement in sodium level with normal saline. Improving. Sodium level up to 127 this morning. 2. Staph aureus bacteremia. Concern for pneumonia. Also concern for cholecystitis. HIDA scan pending. 3. Benign hypertension. Controlled. 4. Metabolic acidosis secondary to lactic acidosis and IV fluids. On oral bicarb. Stable. 5. A-fib with RVR s/p Cardizem drip. On Lopressor. 6. Cardiomyopathy ejection fraction of 45 to 50%. Plan: Maintain sodium chloride tabs. Maintain 1200 cc fluid restriction. Follow-up cultures. Repeat labs in the morning. MRI pending. Cardiac catheterization also being considered.
[2023-05-27] MEDS ORDERED: LORazepam 1 MG TAB PO PRN ×2 (11:56)
[2023-05-27] MEDS: THIAMINE 100 MG/ML 2 ML VIAL IM STA (13:03)
[2023-05-27] MEDS: LOSARTAN 25 MG TAB PO SCH (13:04)
--- NOTE | 2023-05-27 13:05 | MR ---
EXAMINATION TYPE: MR lumbar spine wo/w con DATE OF EXAM: 05/27/2023 11:15 AM CLINICAL INDICATION:Male, 63 years old with history of Sepsis, bacteremia, pain; PHH, Low back pain, sepsis, bacteremia COMPARISON: None TECHNIQUE: Multi planar, multi sequence imaging was performed utilizing: T1-weighted, T2-weighted, a nd turbo inversion recovery imaging of the lumbar spine. IV Contrast: 10 cc Gadavist. (None if empty) FINDINGS: Alignment: Multilevel wedging and compression deformities of the vertebral bodies throughout the spin e. Findings most proximal at L3, L2, L1 and T11. Cord: The conus medullaris and the distal spinal cord appear unremarkable with regards to their signa l intensity and morphology. Bones/Discs: Postsurgical changes to the spine limits evaluation at L4-L5. There is multilevel degene ration changes with osteophyte formation disc space narrowing and facet joint arthropathy. Vertebral body compression deformities are seen throughout the spine. Increased inversion recovery signal is se en within the L2 vertebrae suggesting edema. There is up to 25% height loss at this level. No retropu lsion. There is multilevel degeneration present T12-L1: Mild posterior osteophyte protrudes into the ventral subarachnoid space measuring up to 3 mm. No evidence of significant spinal canal stenosis or neural foraminal stenosis. L1-L2: No evidence of significant spinal canal stenosis or neural foraminal stenosis. L2-L3: No evidence of significant spinal canal stenosis or neural foraminal stenosis. L3-L4: Susceptibility artifact limits evaluation at this level. No evidence of significant spinal can al stenosis. Facet joint arthropathy with at least moderate to severe spinal canal stenosis.. L4-L5: Susceptibility artifact limits evaluation at this level is thought to be at least moderate to severe spinal canal stenosis best appreciated on sagittal imaging series 301 image 8. There is modera te facet joint arthropathy also thought to be present with at least moderate to severe neural foramin al stenosis bilaterally. L5-S1: The disc is rounded posterior morphology without significant spinal canal stenosis. Facet join t arthropathy with mild to moderate bilateral neural foraminal stenosis. No significant spinal canal or neural foraminal stenosis in the remainder of the visualized levels. Other findings: None. IMPRESSION: 1. No evidence for infectious process. 2. Post surgical changes with moderate to severe spinal stenosis at L4 which is poorly visualized du e to susceptibility artifact. 3. Degeneration changes with multi level loss of height of vertebral bodies. There is mild bony tiny a in the L2 vertebrae suggesting possible subacute compression fracture. 4. Facet joint arthropathy with degeneration with moderate to severe L3-L4 neural foraminal stenosis bilaterally.
--- NOTE | 2023-05-27 13:09 | P.PN ---
Subjective Progress Note Date: 05/27/23 Hospital Course: 63-year-old male with history of hypertension presenting with confusion and de hydration. In the ED, temperature was 97.7, pulse 110, blood pressure 87/66, saturating at 96% on room air. WBC 15.6, hemoglobin 13.5, platelet 112, INR 1.2, sodium 123, potassium 4, bicarb 16, anion gap 14, BUN 17, creatinine 0.59, lactate 3.3, total bili 1.5, AST 68, ALT 27, ALP 186, troponin 2.37, urinalysis negative for nitrites and leukocyte esterase. EKG shows supraventricular tachycardia, likely sinus, right bundle branch block chest x-ray shows underinflated, opacity near the right hilum. Patient being admitted for severe dehydration, NSTEMI and sepsis secondary to pneumonia. Patient is also found to be bacteremic, growing MSSA. ID also consulted. Echocardiogram shows mildly im paired systolic function with wall motion abnormalities however, no vegetations noted. Nephrology also consulted due to hyponatremia, likely in the setting of poor solute intake, improving. MRI spine did not show any infectious process. Subjective: Patient seen and examined at bedside. No acute events overnight. Pertinent positives and negatives as discussed above, a complete review of sy stems was performed and all other systems are negative. Vitals Signs Reviewed. General: Nontoxic, no distress, appears at stated age Derm: Warm, dry Head: Atraumatic, normocephalic, symmetric Eyes: EOMI, no lid lag, anicteric sclera Mouth: No lip lesion, mucus membranes moist Cardiovascular: S1S2, irregular, systolic murmur Lungs: CTA bilateral, no rhonchi, no rales, no accessory muscle use Abdominal: Soft, nontender to palpation, no guarding, no appreciable organomegaly Ext: No gross muscle atrophy, no edema, no contractures, lumbar spinal tenderness Neuro: CN II-XI grossly intact, no focal neuro deficits Psych: Alert, oriented, appropriate affect Data Reviewed Today: Pertinent Labs: WBC 12.3, hemoglobin 12.1, platelet 99, sodium 127, creatinine 0.39, magnesium 2 Imaging: MRI spine did not show any evidence of infectious process, possible L2 subacute compression fracture, moderate to severe spinal stenosis at L4, moderate to severe L3-L4 neural foraminal stenosis Assessment and Plan: Patient is severely ill, needs close monitoring. Sepsis, unclear source MSSA bacteremia Severe dehydration, resolved Persistent hyponatremia, now euvolemic, improving High anion gap metabolic acidosis, improving Lactic acidosis, resolved NSTEMI, likely type II Systolic cardiomyopathy Paroxysmal atrial fibrillation with RVR Hyperbilirubinemia, resolved Thrombocytopenia, likely in the setting of sepsis Acute encephalopathy, resolved -Continue on cefazolin 2 g IV every 8 hours - ID consulted, continue current antibiotics - Nephrology note reviewed, on sodium chloride tab 1 g twice daily, sodium bicarb 650 twice daily, on fluid restriction -Cardiology note reviewed, continue on heparin drip, may need cardiac cath, Toprol increased to 50 3 times daily - No active chest pain - Continue aspirin 81 mg, atorvastatin 40 mg History of alcohol dependence - On CIWA protocol, Ativan as needed, monitor for sedation - Thiamine 100 mg daily DVT ppx: Heparin drip Code status: Full code Anticipated discharge place: Pending clinical course Anticipated discharge time: Pending clinical course Objective - Vital Signs Vital signs: Vital Signs Temp 97.9 F 05/27/23 08:00 Pulse 98 05/27/23 08:00 Resp 16 05/27/23 08:00 BP 133/79 05/27/23 08:00 Pulse Ox 98 05/27/23 08:00 FiO2 Intake & Output 05/26/23 05/27/23 05/27/23 18:59 06:59 18:59 Intake Total 570.844 125 Output Total 450 Balance 570.844 -325 Intake: Intake, IV Titration 170.844 125 Amount Diltiazem 125 mg In 125 Sodium Chloride 0.9% 100 ml @ 7.5 MG/HR 7.5 mls/hr IV .[id number] [facility] Rx#: [id number] Heparin Sod,Pork in 0.45% 120.844 NaCl 25,000 unit In 0.45 % NaCl 1 250ml.bag @ 9.36 UNITS/KG/HR 9.996 mls/hr IV .Q24H [facility] Rx#: [id number] ceFAZolin 2 gm In Sodium 50 Chloride 0.9% 50 ml @ 100 mls/hr IVPB Q8H [facility] Rx#: [id number] Oral 400 Output: Urine 450 Other: Voiding Method Indwelling Catheter Indwelling Catheter Indwelling Catheter - Labs CBC & Chem 7: 05/27/23 09:06 05/27/23 09:06 Labs: Abnormal Lab Results - Last 24 Hours (Table) 05/26/23 05/27/23 05/27/23 Range/Units 19:53 09:06 09:06 WBC 12.3 H (3.8-10.6) k/uL RBC 3.29 L (4.30-5.90) m/uL Hgb 12.1 L (13.0-17.5) gm/dL MCV 118.4 H D (80.0-100.0) fL MCH 36.6 H (25.0-35.0) pg MCHC 30.9 L (31.0-37.0) g/dL Plt Count 99 L (150-450) k/uL Neutrophils # 10.8 H (1.3-7.7) k/uL Lymphocytes # 0.7 L (1.0-4.8) k/uL Macrocytosis Marked A APTT 48.7 H (22.0-30.0) sec Sodium 127 L (137-145) mmol/L Carbon Dioxide 19 L (22-30) mmol/L Creatinine 0.39 L (0.66-1.25) mg/dL Glucose 107 H (74-99) mg/dL Calcium 8.1 L (8.4-10.2) mg/dL Microbiology - Last 24 Hours (Table) 05/26/23 03:46 Blood Culture - Preliminary Blood 05/24/23 17:25 Blood Culture Gram Stain - Preliminary Blood Blood Culture - Preliminary Presumptive Staph aureus 05/24/23 17:40 Blood Culture Gram Stain - Preliminary Blood Blood Culture - Preliminary Presumptive Staph aureus
[2023-05-27] MEDS: METOPROLOL TARTRATE 50 MG TAB PO SCH (17:31)
--- NOTE | 2023-05-27 17:37 | P.PN ---
Subjective Progress Note Date: 05/27/23 Principal diagnosis: Reason for follow-up is MSSA bacteremia and possible discitis Patient is a 63-year-old male with a past medical history significant for hypertension patient apparently did have a chronic back pain for which the patient did have surgery done by Dr. Love and did have a lumbar spinal fusion, patient to present to the hospital with weakness confusion and debility he did have a fever and noticed to have positive blood culture with MSSA. On today's visit that is 05/27/2023, the patient continues to be afebrile, the patient is on room air and breathing comfortably, the Pt denies having any chest pain or significant cough, the patient denies having any abdominal pain no vomiting or any diarrhea still complaining of lower back pain exaggerated by the PT. Patient white count is down to 12.3, creatinine 0.39 blood culture repeat currently pending patient did have MRI of the lumbar spine mention no evidence of infectious process did have moderate to severe spinal stenosis and possible subacute compression fracture to L2 Objective - Vital Signs Vital signs: Vital Signs Temp 97.9 F 05/27/23 08:00 Pulse 98 05/27/23 08:00 Resp 16 05/27/23 08:00 BP 133/79 05/27/23 08:00 Pulse Ox 98 05/27/23 08:00 FiO2 Intake & Output 05/26/23 05/27/23 05/27/23 18:59 06:59 18:59 Intake Total 570.844 125 Output Total 450 Balance 570.844 -325 Intake: Intake, IV Titration 170.844 125 Amount Diltiazem 125 mg In 125 Sodium Chloride 0.9% 100 ml @ 7.5 MG/HR 7.5 mls/hr IV .[id number] [facility] Rx#: [id number] Heparin Sod,Pork in 0.45% 120.844 NaCl 25,000 unit In 0.45 % NaCl 1 250ml.bag @ 9.36 UNITS/KG/HR 9.996 mls/hr IV .Q24H [facility] Rx#: [id number] ceFAZolin 2 gm In Sodium 50 Chloride 0.9% 50 ml @ 100 mls/hr IVPB Q8H [facility] Rx#: [id number] Oral 400 Output: Urine 450 Other: Voiding Method Indwelling Catheter Indwelling Catheter Indwelling Catheter - Exam GENERAL DESCRIPTION: Middle-age male lying in bed in no distress RESPIRATORY SYSTEM: Unlabored breathing , decreased breath sounds at bases HEART: S1 S2 regular rate and rhythm , ABDOMEN: Soft , no tenderness EXTREMITIES: No edema feet - Labs CBC & Chem 7: 05/27/23 09:06 05/27/23 09:06 Labs: Abnormal Lab Results - Last 24 Hours (Table) 05/26/23 05/27/23 05/27/23 Range/Units 19:53 09:06 09:06 WBC 12.3 H (3.8-10.6) k/uL RBC 3.29 L (4.30-5.90) m/uL Hgb 12.1 L (13.0-17.5) gm/dL MCV 118.4 H D (80.0-100.0) fL MCH 36.6 H (25.0-35.0) pg MCHC 30.9 L (31.0-37.0) g/dL Plt Count 99 L (150-450) k/uL Neutrophils # 10.8 H (1.3-7.7) k/uL Lymphocytes # 0.7 L (1.0-4.8) k/uL Macrocytosis Marked A APTT 48.7 H (22.0-30.0) sec Sodium 127 L (137-145) mmol/L Carbon Dioxide 19 L (22-30) mmol/L Creatinine 0.39 L (0.66-1.25) mg/dL Glucose 107 H (74-99) mg/dL Calcium 8.1 L (8.4-10.2) mg/dL Microbiology - Last 24 Hours (Table) 05/26/23 03:46 Blood Culture - Preliminary Blood 05/24/23 17:25 Blood Culture Gram Stain - Preliminary Blood Blood Culture - Preliminary Presumptive Staph aureus 05/24/23 17:40 Blood Culture Gram Stain - Preliminary Blood Blood Culture - Preliminary Presumptive Staph aureus Assessment and Plan (1) MSSA bacteremia Current Visit: Yes Status: Acute Code(s): R78.81 - BACTEREMIA; B95.61 - METHICILLIN SUSCEP STAPH INFCT CAUSING DIS CLASSD ELSWHR SNOMED Code(s): 980299251 (2) Leukocytosis Current Visit: Yes Status: Acute Code(s): D72.829 - ELEVATED WHITE BLOOD CELL COUNT, UNSPECIFIED SNOMED Code(s): 445047666 Plan: 1patient with MSSA bacteremia in this patient who did have a history of chronic back pain with recent worsening and also have a history of extensive lumbosacral spine surgery with fusion, now with a positive blood culture with MSSA, with a high clinical probability source of this bacteremia being the lumbosacral spine 2-blood cultures will be repeated document clearance of his bacteremia 3-patient did have elevated sed rate of 89 4-patient MRI of the lumbar spine mention no infectious process, patient benefit from a VINCE to make sure no evidence of any endovascular source 5-patient to continue with cefazolin 2 g-every 8 hours Family the bedside multiple question concern has been answered Dictation was produced using [employer] dictation software. please excuse any grammatical, word or spelling errors. Time with Patient: Less than 30
[2023-05-27] MEDS: APIXABAN 5 MG TAB PO SCH (18:37)
--- NOTE | 2023-05-28 03:48 | PN ---
PROGRESS NOTE SUBJECTIVE: Mr. Lentz is in atrial fibrillation, rate is in the 90s. He is fairly stable. Yesterday, I had a long discussion with him and his and I explained to them that given his positive blood cultures with a source probably from his previous back multiple surgeries, I am recommending no cardiac cath even though he has wall motion abnormality and elevated troponin, we will treat him medically and after a week or 2 when cultures are negative, I will consider cardiac catheterization as outpatient. The patient will probably be discharged after PICC line. OBJECTIVE: VITAL SIGNS: Stable. NECK: No JVD. CARDIAC: S1, S2 heard normally. Irregular rhythm noted. Short systolic murmur noted. LUNGS: Revealed decent air entry. ABDOMEN: Unchanged. LOWER EXTREMITIES: Unchanged. ASSESSMENT: I am recommending that we optimize rate control and increase the beta souleymane and upon discharge, we will see him as an outpatient and make further recommendations. I also spoke to the patient's and his sister. I am going to increase the beta souleymane to 50 mg 3 times a day and discontinue his Cardizem drip and based on clinical course, I will make further recommendations, but no cardiac cath at this time. MMODL / IJN: [id number] /
--- NOTE | 2023-05-28 10:52 | P.PN ---
Subjective Patient is seen in follow-up for hyponatremia. Sodium level 127 yesterday. Blood pressure stable. No vomiting or diarrhea. Nonoliguric. Vital signs are stable. General: No acute distress. HEENT: Head exam is unremarkable. LUNGS: No audible rhonchi or wheezes. HEART: Rate and Rhythm are regular. ABDOMEN: Obese, nontender. EXTREMITITES: No edema. Objective - Vital Signs Vital signs: Vital Signs Temp 98.1 F 05/28/23 04:00 Pulse 82 05/28/23 04:00 Resp 17 05/28/23 04:00 BP 99/63 05/28/23 04:00 Pulse Ox 98 05/28/23 04:00 FiO2 Intake & Output 05/27/23 05/28/23 05/28/23 18:59 06:59 18:59 Intake Total 240 Output Total 2300 1350 Balance -206 -1350 Weight 99 kg Intake: Oral 240 Output: Urine 2300 1350 Other: Voiding Method Indwelling Catheter Indwelling Catheter - Labs CBC & Chem 7: 05/27/23 09:06 05/27/23 09:06 Labs: Abnormal Lab Results - Last 24 Hours (Table) 05/27/23 Range/Units 09:06 Neutrophils # 10.8 H (1.3-7.7) k/uL Lymphocytes # 0.7 L (1.0-4.8) k/uL Microbiology - Last 24 Hours (Table) 05/27/23 09:06 Blood Culture Gram Stain - Preliminary Blood 05/24/23 17:25 Blood Culture Gram Stain - Final Blood Blood Culture - Final Staphylococcus aureus 05/24/23 17:40 Blood Culture Gram Stain - Final Blood Blood Culture - Final Staphylococcus aureus 05/26/23 03:46 Blood Culture - Preliminary Blood Assessment and Plan Plan: Assessment: 1. Hyponatremia from poor solute intake. Urine osmolality 384. Urine sodium less than 20. TSH normal. No improvement in sodium level with normal saline. Improving. Sodium level up to 127 yesterday. 2. Staph aureus bacteremia. Concern for pneumonia. Also concern for cholecystitis - HIDA scan showed biliary hyperkinesia.. No infectious process noted on lumbar MRI. 3. Benign hypertension. 4. Metabolic acidosis secondary to lactic acidosis and IV fluids. On oral bicarb. Stable. 5. A-fib with RVR s/p Cardizem drip. On Lopressor. 6. Cardiomyopathy ejection fraction of 45 to 50%. Plan: Maintain sodium chloride tabs. Maintain 1200 cc fluid restriction. Follow-up cultures. Morning labs pending. VINCE today.
[2023-05-28 11:20] LABS: Basophils # (A) 0.1 k/uL (0-0.2); Basophils % (A) 0 %; Eosinophils # (A) 0.1 k/uL (0-0.7); Eosinophils % (A) 1 %; HCT 39.1 % (39.0-53.0); HGB 12.1 gm/dL (13.0-17.5); Hypochromasia Slight; Lymphocytes # (A) 1.4 k/uL (1.0-4.8); Lymphocytes % (A) 12 %; MCH 36.5 pg (25.0-35.0); MCV 117.9 fL (80.0-100.0); Macrocytosis Marked; Mean Platelet Volume 10.5; Monocytes # (A) 0.9 k/uL (0-1.0); Monocytes % (A) 8 %; Neutrophils # (A) 9.3 k/uL (1.3-7.7); Neutrophils % (A) 77 %; RBC 3.32 m/uL (4.30-5.90); RDW 12.3 % (11.5-15.5); WBC 12.1 k/uL (3.8-10.6)
[2023-05-28 11:39] LABS: African American GFR (CKD) >90 (>60 ml/min/1.73 sqM); Anion Gap 6 mmol/L; Blood Urea Nitrogen 13 mg/dL (9-20); Calcium 8.3 mg/dL (8.4-10.2); Carbon Dioxide 23 mmol/L (22-30); Chloride 100 mmol/L (98-107); Glucose 112 mg/dL (74-99); Magnesium 1.9 mg/dL (1.6-2.3); Non-African American GFR(CKD) >90 (>60 ml/min/1.73 sqM); Potassium 4.7 mmol/L (3.5-5.1); Sodium 129 mmol/L (137-145)
--- NOTE | 2023-05-28 12:26 | PN ---
PROGRESS NOTE SUBJECTIVE: Mr. Lentz is in atrial fibrillation. His rate is fairly well controlled. He still has Staphylococcus aureus bacteremia, which is methicillin sensitive. We will perform transesophageal echo at the request of Infectious Disease specialist, Dr. Akhtar. I have requested Dr. Marina to perform the procedure. I explained to the patient and family, specifically his sister regarding the transesophageal echo to see if he has any vegetations. Plan is to do transesophageal echo today and hopefully his sodium will improve and we will perform cardiac cath in a week or two after he is on antibiotics and his culture negative. OBJECTIVE: VITAL SIGNS: Stable. CARDIAC: S1, S2 with irregular rate and rhythm noted. Short systolic murmur noted along left sternal border. LUNGS: Revealed decent air entry. ABDOMEN: Unchanged. LOWER EXTREMITIES: Unchanged. PLAN: Plan is to perform transesophageal echo. Same medical regimen. Possible discharge after a PICC line with IV antibiotics. Prognosis remains guarded. MMODL / IJN: [id number] /
[2023-05-28 12:42] LABS: Polychromasia Present
[2023-05-28] MEDS: IV FLUID CONTINUATION 1,000 ML IV ONE (13:00)
[2023-05-28] MEDS: BENZOCAINE SPRAY 1 CAN MUCOUS MEM ONE (13:06)
[2023-05-28] MEDS: fentaNYL (PF) 50 MCG/ML 2 ML AMP IVP ONE (13:08)
[2023-05-28] MEDS: MIDAZOLAM 2 MG/2 ML VIAL IVP ONE (13:08)
--- NOTE | 2023-05-28 13:58 | P.PN ---
Subjective Progress Note Date: 05/28/23 Hospital Course: 63-year-old male with history of hypertension presenting with confusion and de hydration. In the ED, temperature was 97.7, pulse 110, blood pressure 87/66, saturating at 96% on room air. WBC 15.6, hemoglobin 13.5, platelet 112, INR 1.2, sodium 123, potassium 4, bicarb 16, anion gap 14, BUN 17, creatinine 0.59, lactate 3.3, total bili 1.5, AST 68, ALT 27, ALP 186, troponin 2.37, urinalysis negative for nitrites and leukocyte esterase. EKG shows supraventricular tachycardia, likely sinus, right bundle branch block chest x-ray shows underinflated, opacity near the right hilum. Patient being admitted for severe dehydration, NSTEMI and sepsis secondary to pneumonia. Patient is also found to be bacteremic, growing MSSA. ID also consulted. Echocardiogram shows mildly im paired systolic function with wall motion abnormalities however, no vegetations noted. Nephrology also consulted due to hyponatremia, likely in the setting of poor solute intake, improving. MRI spine did not show any infectious process. Patient need to undergo VINCE. Cardiology following. Subjective: Patient seen and examined at bedside. No acute events overnight. Complaining of back pain. Pertinent positives and negatives as discussed above, a complete review of systems was performed and all other systems are negative. Vitals Signs Reviewed. General: Nontoxic, no distress, appears at stated age Derm: Warm, dry Head: Atraumatic, normocephalic, symmetric Eyes: EOMI, no lid lag, anicteric sclera Mouth: No lip lesion, mucus membranes moist Cardiovascular: S1S2, irregular, systolic murmur Lungs: CTA bilateral, no rhonchi, no rales, no accessory muscle use Abdominal: Soft, nontender to palpation, no guarding, no appreciable organomegaly Ext: No gross muscle atrophy, no edema, no contractures, lumbar spinal tenderness Neuro: CN II-XI grossly intact, no focal neuro deficits Psych: Alert, oriented, appropriate affect Data Reviewed Today: Pertinent Labs: WBC 12.1, hemoglobin 12.1, sodium 129, creatinine 0.39 Imaging: No imaging Assessment and Plan: Patient is severely ill, needs close monitoring. Sepsis, unclear source MSSA bacteremia Severe dehydration, resolved Persistent hyponatremia, now euvolemic, improving High anion gap metabolic acidosis resolved Lactic acidosis, resolved NSTEMI, likely type II Systolic cardiomyopathy Paroxysmal atrial fibrillation with RVR Hyperbilirubinemia, resolved Thrombocytopenia, likely in the setting of sepsis, resolved Acute encephalopathy, improving -Blood cultures still persistently positive, discussed management with anastasiya BECKWITH to nafcillin 2 g IV every 4 hours, VINCE pending If VINCE negative, patient will need a WBC tagged nuclear scan - Nephrology note reviewed, on sodium chloride tab 1 g twice daily, sodium bicarb 650 twice daily, on fluid restriction -Cardiology note reviewed, needs VINCE, on metoprolol 50 3 times daily, Eliquis 5 twice daily - No active chest pain - Continue aspirin 81 mg, atorvastatin 40 mg History of alcohol dependence - On CIWA protocol, Ativan as needed, monitor for sedation - Thiamine 100 mg daily Chronic back pain On oxy 10 3 times daily, morphine 2 IV every 6 hours as needed DVT ppx: Eliquis Code status: Full code Anticipated discharge place: Pending clinical course Anticipated discharge time: Pending clinical course Objective - Vital Signs Vital signs: Vital Signs Temp 97.8 F 05/28/23 08:00 Pulse 106 H 05/28/23 08:00 Resp 16 05/28/23 08:00 BP 129/77 05/28/23 08:00 Pulse Ox 98 05/28/23 08:00 FiO2 Intake & Output 05/27/23 05/28/23 05/28/23 18:59 06:59 18:59 Intake Total 240 150 Output Total 2300 1350 Balance -2060 -1350 150 Weight 99 kg Intake: IV 100 Intake, IV Titration 50 Amount ceFAZolin 2 gm In Sodium 50 Chloride 0.9% 50 ml @ 100 mls/hr IVPB Q8H [facility] Rx#: [id number] Oral 240 Output: Urine 2300 1350 Other: Voiding Method Indwelling Catheter Indwelling Catheter Indwelling Catheter - Labs CBC & Chem 7: 05/28/23 10:39 05/28/23 10:39 Labs: Abnormal Lab Results - Last 24 Hours (Table) 05/28/23 05/28/23 Range/Units 10:39 10:39 WBC 12.1 H (3.8-10.6) k/uL RBC 3.32 L (4.30-5.90) m/uL Hgb 12.1 L (13.0-17.5) gm/dL MCV 117.9 H (80.0-100.0) fL MCH 36.5 H (25.0-35.0) pg Neutrophils # 9.3 H (1.3-7.7) k/uL Macrocytosis Marked A Sodium 129 L (137-145) mmol/L Creatinine 0.39 L (0.66-1.25) mg/dL Glucose 112 H (74-99) mg/dL Calcium 8.3 L (8.4-10.2) mg/dL Microbiology - Last 24 Hours (Table) 05/26/23 03:46 Blood Culture Gram Stain - Preliminary Blood Blood Culture - Preliminary 05/27/23 09:06 Blood Culture Gram Stain - Preliminary Blood 05/24/23 17:25 Blood Culture Gram Stain - Final Blood Blood Culture - Final Staphylococcus aureus 05/24/23 17:40 Blood Culture Gram Stain - Final Blood Blood Culture - Final Staphylococcus aureus
[2023-05-28 14:56] LABS: Platelet Count 174 k/uL (150-450)
--- NOTE | 2023-05-28 15:32 | P.PN ---
Subjective Progress Note Date: 05/28/23 Principal diagnosis: Reason for follow-up is MSSA bacteremia and possible discitis Patient is a 63-year-old male with a past medical history significant for hypertension patient apparently did have a chronic back pain for which the patient did have surgery done by Dr. Love and did have a lumbar spinal fusion, patient to present to the hospital with weakness confusion and debility he did have a fever and noticed to have positive blood culture with MSSA. On today's visit that is 05/28/2023, Patient is afebrile patient is currently on room air patient seem to have significant mental status changes as reported by the sister at the bedside which seem to be new compared to yesterday no vomiting diarrhea with the changes reported or new worsening back pain. Patient white count is down to 12.1, creatinine 0.39 blood culture from 327 came back positive as well Objective - Vital Signs Vital signs: Vital Signs Temp 98.1 F 05/28/23 04:00 Pulse 82 05/28/23 04:00 Resp 17 05/28/23 04:00 BP 99/63 05/28/23 04:00 Pulse Ox 98 05/28/23 04:00 FiO2 Intake & Output 05/27/23 05/28/23 05/28/23 18:59 06:59 18:59 Intake Total 240 Output Total 2300 1350 Balance -206 -1350 Weight 99 kg Intake: Oral 240 Output: Urine 2300 1350 Other: Voiding Method Indwelling Catheter Indwelling Catheter - Exam GENERAL DESCRIPTION: Middle-age male lying in bed in no distress RESPIRATORY SYSTEM: Unlabored breathing , decreased breath sounds at bases HEART: S1 S2 regular rate and rhythm , ABDOMEN: Soft , no tenderness EXTREMITIES: No edema feet - Labs CBC & Chem 7: 05/28/23 10:39 05/28/23 10:39 Labs: Abnormal Lab Results - Last 24 Hours (Table) 05/27/23 05/28/23 05/28/23 Range/Units 09:06 10:39 10:39 WBC 12.1 H (3.8-10.6) k/uL RBC 3.32 L (4.30-5.90) m/uL Hgb 12.1 L (13.0-17.5) gm/dL MCV 117.9 H (80.0-100.0) fL MCH 36.5 H (25.0-35.0) pg Neutrophils # 10.8 H (1.3-7.7) k/uL Lymphocytes # 0.7 L (1.0-4.8) k/uL Macrocytosis Marked A Sodium 129 L (137-145) mmol/L Creatinine 0.39 L (0.66-1.25) mg/dL Glucose 112 H (74-99) mg/dL Calcium 8.3 L (8.4-10.2) mg/dL Microbiology - Last 24 Hours (Table) 05/27/23 09:06 Blood Culture Gram Stain - Preliminary Blood 05/24/23 17:25 Blood Culture Gram Stain - Final Blood Blood Culture - Final Staphylococcus aureus 05/24/23 17:40 Blood Culture Gram Stain - Final Blood Blood Culture - Final Staphylococcus aureus 05/26/23 03:46 Blood Culture - Preliminary Blood Assessment and Plan (1) MSSA bacteremia Current Visit: Yes Status: Acute Code(s): R78.81 - BACTEREMIA; B95.61 - METHICILLIN SUSCEP STAPH INFCT CAUSING DIS CLASSD ELSWHR SNOMED Code(s): 983438895 (2) Leukocytosis Current Visit: Yes Status: Acute Code(s): D72.829 - ELEVATED WHITE BLOOD CELL COUNT, UNSPECIFIED SNOMED Code(s): 304940961 Plan: 1patient with MSSA bacteremia in this patient who did have a history of chronic back pain with recent worsening and also have a history of extensive lumbosacral spine surgery with fusion, now with a positive blood culture with MSSA, with a high clinical probability source of this bacteremia being the lumbosacral spine 2-blood cultures will be repeated to document clearance of his bacteremia 3-patient did have elevated sed rate of 89 4-patient MRI of the lumbar spine mention no infectious process, patient currently waiting for VINCE to be completed this afternoon 5-I will discontinue cefazolin and start the patient on cefazolin concern for possible endocarditis Sister the bedside multiple question concern has been answered in layman terms has concern about mental status changes clinical not behaving as meningitis concern of the patient's sister and request for a neuro eval has been discussed with admitting team Dictation was produced using [employer] dictation software. please excuse any grammatical, word or spelling errors. Time with Patient: Less than 30
[2023-05-28] MEDS: fentaNYL (PF) 50 MCG/ML 2 ML AMP ONE (16:20)
[2023-05-28] MEDS: THIAMINE 100 MG TAB PO SCH (16:31)
[2023-05-28] MEDS: NAFCILLIN 2 GM in DEXTROSE 5% IN WATER 100 ML IVPB SCH (16:32)
--- NOTE | 2023-05-28 17:58 | P.TEE ---
Date of Procedure: 05/28/23 Description of Procedure(s): Procedure performed: 1. Transesophageal Echocardiogram with color flow doppler, pulsed wave doppler and continuous wave doppler 2. Moderate conscious sedation. Sedation time 13 mins. 3. Bubble Study Indications: Concerns of infective endocarditis 63-year-old admitted with NSTEMI but also found to have MSSA bacteremia. VINCE was planned to rule out any evidence of infective endocarditis. Patient does have history of back surgery which could be potential source of his MSSA. Consent: I have discussed the risks, benefits and alternative therapies for the above-mentioned procedure. The patient has indicated understanding and acceptance of the risks of the procedure. Signed consent was obtained and was placed in the paper chart. Procedural Steps: Timeout was performed in usual fashion. Patient's heart rate, blood pressure, oxygen saturation and ECG were monitored. Benzocaine was sprayed liberally in the back of the throat. Bite block was placed between the jaw. 3 mg of Versed and 50 mcg of Fentanyl were administered intravenously. After achieving appropriate moderate conscious sedation, VINCE probe was advanced without difficulty and without any immediate complications to the esophagus. VINCE study was performed with color flow doppler, pulsed wave doppler and continuous wave doppler. The probe was then removed. Patient tolerated the procedure well. Patient was transferred to the post procedure area in stable and satisfactory condition. Throughout the procedure patient's heart rate, blood pressure, oxygen saturation and ECG were monitored. Total sedation time 13 mins. Complications: none FINDINGS Left Atrium: Severe LA dilatation. No evidence of mass or thrombus seen Left Atrial Appendage: No evidence of thrombus or mass seen in ISAIAH Inter atrial septum: Intact inter-atrial septum with no evidence of atrial septal defect on color Doppler. Left Ventricle: Mildly reduced global LV systolic function with estimated EF 40% Right Atrium: Severe RA dilatation Right Ventricle: Normal global RV size and systolic function Aortic Valve: Trileaflet. Evidence of small vegetation on left coronary cusp measuring around 4 mm. Mild prolapse of left coronary cusp with mild aortic regurgitation. Mild calcification of right and noncoronary cusp Mitral Valve: Struturally normal. No evidence of prolapse. No evidence of stenosis or regurgitation. No evidence of vegetation Pulmonic Valve: No evidence of vegetation. No evidence of stenosis or regurgitation on Doppler Tricuspid Valve: Structurally normal. No evidence of vegetation, mild tricuspid regurgitation Ascending aorta, Aortic root and Aortic arch: Normal size aortic root and ascending aorta. Mild intimal thickening. Descending aorta: Mild intimal thickening. CONCLUSION: Evidence of small vegetation on left coronary cusp of aortic valve measuring 4 mm. Mild aortic regurgitation Moderately reduced LV systolic function with LVEF around 40% Severe biatrial dilatation No evidence of thrombus in left atrial or left atrial appendage Was noticed to be in atrial fibrillation during the study Findings were communicated to patient's Sister Kasia Lentz Otis Barrios MD, RPVI, FACC Thank you for allowing [facility] to participate in this patient's care. Feel free to reach out in case of any followup questions.
[2023-05-29] MEDS: SODIUM CHLORIDE 0.9% 1,000 ML IV SCH ×2 (10:09→11:15)
[2023-05-29] MEDS ORDERED: PROPOFOL 10 MG/ML 20 ML VIAL IV ONE (10:12)
[2023-05-29] MEDS: FUROSEMIDE 10 MG/ML 4 ML VIAL IV ONE (10:29)
[2023-05-29 10:42] LABS: African American GFR (CKD) >90 (>60 ml/min/1.73 sqM); Anion Gap 9 mmol/L; Blood Urea Nitrogen 17 mg/dL (9-20); Calcium 8.1 mg/dL (8.4-10.2); Carbon Dioxide 22 mmol/L (22-30); Chloride 98 mmol/L (98-107); Glucose 110 mg/dL (74-99); Magnesium 1.9 mg/dL (1.6-2.3); Non-African American GFR(CKD) >90 (>60 ml/min/1.73 sqM); Potassium 4.3 mmol/L (3.5-5.1); Sodium 129 mmol/L (137-145)
[2023-05-29] MEDS: LACTATED RINGERS 1,000 ML IV ONE (10:42)
[2023-05-29 10:55] LABS: Basophils % (A) 0 %; Eosinophils # (A) 0.1 k/uL (0-0.7); Eosinophils % (A) 1 %; HCT 31.9 % (39.0-53.0); HGB 10.3 gm/dL (13.0-17.5); Lymphocytes # (A) 1.4 k/uL (1.0-4.8); Lymphocytes % (A) 14 %; MCH 36.9 pg (25.0-35.0); MCHC 32.2 g/dL (31.0-37.0); MCV 114.6 fL (80.0-100.0); Macrocytosis Marked; Mean Platelet Volume 11.6; Monocytes # (A) 1.1 k/uL (0-1.0); Monocytes % (A) 11 %; Neutrophils # (A) 7.3 k/uL (1.3-7.7); Neutrophils % (A) 72 %; RBC 2.78 m/uL (4.30-5.90); RDW 12.7 % (11.5-15.5); WBC 10.1 k/uL (3.8-10.6)
[2023-05-29] MEDS: DEXTROSE 5% IN WATER 100 ML with AMIODARONE 150 MG IV ONE (11:15)
[2023-05-29] MEDS: AMIODARONE 360 MG in DEXTROSE 5% IN WATER 200 ML IV ONE (12:42)
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
--- NOTE | 2023-05-29 13:33 | P.PN ---
Subjective Patient is seen in follow-up for hyponatremia. Sodium level stable at 129. Blood pressure stable. No vomiting or diarrhea. Nonoliguric. Underwent VINCE this morning. Vital signs are stable. General: No acute distress. HEENT: Head exam is unremarkable. LUNGS: No audible rhonchi or wheezes. HEART: Rate and Rhythm are regular. ABDOMEN: Obese, nontender. EXTREMITITES: No edema. Objective - Vital Signs Vital signs: Vital Signs Temp 97.8 F 05/29/23 11:40 Pulse 87 05/29/23 11:40 Resp 20 05/29/23 11:40 BP 118/68 05/29/23 11:40 Pulse Ox 99 05/29/23 11:40 FiO2 Intake & Output 05/28/23 05/29/23 05/29/23 18:59 06:59 18:59 Intake Total 270 20 305 Output Total 1060 400 Balance -790 20 -95 Weight 94 kg Intake: IV 100 305 Invasive Line 4 5 Intake, IV Titration 50 Amount ceFAZolin 2 gm In Sodium 50 Chloride 0.9% 50 ml @ 100 mls/hr IVPB Q8H [facility] Rx#: [id number] Oral 120 20 Output: Urine 1060 400 Other: Voiding Method Indwelling Catheter Indwelling Catheter Indwelling Catheter # Bowel Movements 1 - Labs CBC & Chem 7: 05/29/23 09:16 05/29/23 09:16 Labs: Abnormal Lab Results - Last 24 Hours (Table) 05/28/23 05/29/23 05/29/23 Range/Units 10:39 09:16 09:16 RBC 2.78 L (4.30-5.90) m/uL Hgb 10.3 L (13.0-17.5) gm/dL Hct 31.9 L (39.0-53.0) % MCV 114.6 H (80.0-100.0) fL MCH 36.9 H (25.0-35.0) pg Neutrophils # 9.3 H (1.3-7.7) k/uL Macrocytosis Marked A Sodium 129 L (137-145) mmol/L Creatinine 0.41 L (0.66-1.25) mg/dL Glucose 110 H (74-99) mg/dL Calcium 8.1 L (8.4-10.2) mg/dL Microbiology - Last 24 Hours (Table) 05/26/23 03:46 Blood Culture Gram Stain - Preliminary Blood Blood Culture - Preliminary Presumptive Staph aureus 05/27/23 09:06 Blood Culture Gram Stain - Preliminary Blood Blood Culture - Preliminary Presumptive Staph aureus Assessment and Plan Plan: Assessment: 1. Hyponatremia from poor solute intake. Urine osmolality 384. Urine sodium less than 20. TSH normal. No improvement in sodium level with normal saline. Improving. Sodium level stable at 129 today. 2. Staph aureus bacteremia. Concern for pneumonia. Also concern for cholecystitis - HIDA scan showed biliary hyperkinesia.. No infectious process noted on lumbar MRI. Aortic valve vegetation noted on VINCE. 3. Benign hypertension. Controlled. 4. Metabolic acidosis secondary to lactic acidosis and IV fluids. On oral bicarb. Stable. 5. A-fib with RVR s/p Cardizem drip. On Lopressor. 6. Cardiomyopathy ejection fraction of 45 to 50%. Plan: Maintain sodium chloride tabs. Maintain 1200 cc fluid restriction. Encouraged oral intake. Repeat labs in the morning.
[2023-05-29 13:37] LABS: Large Platelets Present; Platelet Count 155 k/uL (150-450); Polychromasia Present
--- NOTE | 2023-05-29 14:26 | P.PN ---
Subjective Progress Note Date: 05/29/23 Hospital Course: 63-year-old male with history of hypertension presenting with confusion and de hydration. In the ED, temperature was 97.7, pulse 110, blood pressure 87/66, saturating at 96% on room air. WBC 15.6, hemoglobin 13.5, platelet 112, INR 1.2, sodium 123, potassium 4, bicarb 16, anion gap 14, BUN 17, creatinine 0.59, lactate 3.3, total bili 1.5, AST 68, ALT 27, ALP 186, troponin 2.37, urinalysis negative for nitrites and leukocyte esterase. EKG shows supraventricular tachycardia, likely sinus, right bundle branch block chest x-ray shows underinflated, opacity near the right hilum. Patient being admitted for severe dehydration, NSTEMI and sepsis secondary to pneumonia. Patient is also found to be bacteremic, growing MSSA. ID also consulted. Echocardiogram shows mildly im paired systolic function with wall motion abnormalities however, no vegetations noted. Nephrology also consulted due to hyponatremia, likely in the setting of poor solute intake, improving. MRI spine did not show any infectious process. VINCE did not show small vegetation on the left coronary cusp of aortic valve measuring 4 mm, mild aortic regurgitation, moderately reduced LV systolic function at 40%. Patient was also in A-fib, recommended to have cardioversion. Subjective: Patient seen and examined at bedside. No acute events overnight. Complaining of back pain. Pertinent positives and negatives as discussed above, a complete review of systems was performed and all other systems are negative. Vitals Signs Reviewed. General: Nontoxic, no distress, appears at stated age Derm: Warm, dry Head: Atraumatic, normocephalic, symmetric Eyes: EOMI, no lid lag, anicteric sclera Mouth: No lip lesion, mucus membranes moist Cardiovascular: S1S2, irregular, systolic murmur Lungs: CTA bilateral, no rhonchi, no rales, no accessory muscle use Abdominal: Soft, nontender to palpation, no guarding, no appreciable organomegaly Ext: No gross muscle atrophy, no edema, no contractures, lumbar spinal tenderness Neuro: CN II-XI grossly intact, no focal neuro deficits Psych: Alert, oriented, appropriate affect Data Reviewed Today: Pertinent Labs: WBC 10.1, hemoglobin 10.3, sodium 129, creatinine 0.41 Imaging: VINCE report showed aortic valve vegetations measuring 4 mm Assessment and Plan: Patient is severely ill, needs close monitoring. Sepsis secondary to aortic valve endocarditis MSSA bacteremia Severe dehydration, resolved Persistent hyponatremia, now euvolemic, improving High anion gap metabolic acidosis resolved Lactic acidosis, resolved NSTEMI, likely type II Systolic cardiomyopathy Paroxysmal atrial fibrillation with RVR Hyperbilirubinemia, resolved Thrombocytopenia, likely in the setting of sepsis, resolved Acute encephalopathy, improving -Blood cultures still persistently positive, discussed management with ID, on nafcillin 2 g IV every 4 hours, Cardiothoracic surgery note reviewed, no acute interventions -Nephrology note reviewed, on sodium chloride tab 1 g twice daily, sodium bicarb 650 twice daily, on fluid restriction -Discussed management with cardiology, pending cardioversion today, continue metoprolol 50 3 times daily, noted on 200 twice daily, Eliquis 5 twice daily - No active chest pain - Continue aspirin 81 mg, atorvastatin 40 mg History of alcohol dependence - On CIWA protocol, Ativan as needed, monitor for sedation - Thiamine 100 mg daily Chronic back pain On oxy 10 3 times daily, morphine 2 IV every 6 hours as needed DVT ppx: Eliquis Code status: Full code Anticipated discharge place: Pending clinical course Anticipated discharge time: Pending clinical course Objective - Vital Signs Vital signs: Vital Signs Temp 97.8 F 05/29/23 11:40 Pulse 87 05/29/23 11:40 Resp 20 05/29/23 11:40 BP 118/68 05/29/23 11:40 Pulse Ox 99 05/29/23 11:40 FiO2 Intake & Output 05/28/23 05/29/23 05/29/23 18:59 06:59 18:59 Intake Total 270 20 305 Output Total 1060 400 Balance -790 20 -95 Weight 94 kg Intake: IV 100 305 Invasive Line 4 5 Intake, IV Titration 50 Amount ceFAZolin 2 gm In Sodium 50 Chloride 0.9% 50 ml @ 100 mls/hr IVPB Q8H [facility] Rx#: [id number] Oral 120 20 Output: Urine 1060 400 Other: Voiding Method Indwelling Catheter Indwelling Catheter Indwelling Catheter # Bowel Movements 1 - Labs CBC & Chem 7: 05/29/23 09:16 05/29/23 09:16 Labs: Abnormal Lab Results - Last 24 Hours (Table) 05/28/23 05/29/23 05/29/23 Range/Units 10:39 09:16 09:16 RBC 2.78 L (4.30-5.90) m/uL Hgb 10.3 L (13.0-17.5) gm/dL Hct 31.9 L (39.0-53.0) % MCV 114.6 H (80.0-100.0) fL MCH 36.9 H (25.0-35.0) pg Neutrophils # 9.3 H (1.3-7.7) k/uL Monocytes # 1.1 H (0-1.0) k/uL Macrocytosis Marked A Sodium 129 L (137-145) mmol/L Creatinine 0.41 L (0.66-1.25) mg/dL Glucose 110 H (74-99) mg/dL Calcium 8.1 L (8.4-10.2) mg/dL Microbiology - Last 24 Hours (Table) 05/26/23 03:46 Blood Culture Gram Stain - Preliminary Blood Blood Culture - Preliminary Presumptive Staph aureus 05/27/23 09:06 Blood Culture Gram Stain - Preliminary Blood Blood Culture - Preliminary Presumptive Staph aureus
--- NOTE | 2023-05-29 15:21 | P.PN ---
Subjective Progress Note Date: 05/29/23 Principal diagnosis: Reason for follow-up is MSSA bacteremia and possible discitis Patient is a 63-year-old male with a past medical history significant for hypertension patient apparently did have a chronic back pain for which the patient did have surgery done by Dr. Love and did have a lumbar spinal fusion, patient to present to the hospital with weakness confusion and debility he did have a fever and noticed to have positive blood culture with MSSA. Patient did have a VINCE completed on 05/28/2023 reported as 4 mm vegetation on the aortic valve. On today's evaluation that is 05/29/2023, patient has been afebrile, patient is breathing comfortably and is currently on room air, patient denies having any significant cough no chest pain shortness of breath, patient denies nausea vomiting or diarrhea and no abdominal pain, feeling slightly better today. Patient white count normalized to 10.1, creatinine 0.41 Objective - Vital Signs Vital signs: Vital Signs Temp 98 F 05/29/23 10:25 Pulse 81 05/29/23 11:02 Resp 20 05/29/23 11:02 BP 105/59 05/29/23 11:02 Pulse Ox 100 05/29/23 11:02 FiO2 Intake & Output 05/28/23 05/29/23 05/29/23 18:59 06:59 18:59 Intake Total 270 20 105 Output Total 1060 Balance -790 20 105 Weight 94 kg Intake: IV 100 105 Invasive Line 4 5 Intake, IV Titration 50 Amount ceFAZolin 2 gm In Sodium 50 Chloride 0.9% 50 ml @ 100 mls/hr IVPB Q8H [facility] Rx#: [id number] Oral 120 20 Output: Urine 1060 Other: Voiding Method Indwelling Catheter Indwelling Catheter Indwelling Catheter # Bowel Movements 1 - Exam GENERAL DESCRIPTION: Middle-age male lying in bed in no distress RESPIRATORY SYSTEM: Unlabored breathing , decreased breath sounds at bases HEART: S1 S2 regular rate and rhythm , ABDOMEN: Soft , no tenderness EXTREMITIES: No edema feet - Labs CBC & Chem 7: 05/29/23 09:16 05/29/23 09:16 Labs: Abnormal Lab Results - Last 24 Hours (Table) 05/28/23 05/28/23 05/29/23 Range/Units 10:39 10:39 09:16 WBC 12.1 H (3.8-10.6) k/uL RBC 3.32 L (4.30-5.90) m/uL Hgb 12.1 L (13.0-17.5) gm/dL Hct (39.0-53.0) % MCV 117.9 H (80.0-100.0) fL MCH 36.5 H (25.0-35.0) pg Neutrophils # 9.3 H (1.3-7.7) k/uL Macrocytosis Marked A Sodium 129 L 129 L (137-145) mmol/L Creatinine 0.39 L 0.41 L (0.66-1.25) mg/dL Glucose 112 H 110 H (74-99) mg/dL Calcium 8.3 L 8.1 L (8.4-10.2) mg/dL 05/29/23 Range/Units 09:16 WBC (3.8-10.6) k/uL RBC 2.78 L (4.30-5.90) m/uL Hgb 10.3 L (13.0-17.5) gm/dL Hct 31.9 L (39.0-53.0) % MCV 114.6 H (80.0-100.0) fL MCH 36.9 H (25.0-35.0) pg Neutrophils # (1.3-7.7) k/uL Macrocytosis Marked A Sodium (137-145) mmol/L Creatinine (0.66-1.25) mg/dL Glucose (74-99) mg/dL Calcium (8.4-10.2) mg/dL Microbiology - Last 24 Hours (Table) 05/26/23 03:46 Blood Culture Gram Stain - Preliminary Blood Blood Culture - Preliminary Presumptive Staph aureus 05/27/23 09:06 Blood Culture Gram Stain - Preliminary Blood Blood Culture - Preliminary Presumptive Staph aureus Assessment and Plan (1) MSSA bacteremia Current Visit: Yes Status: Acute Code(s): R78.81 - BACTEREMIA; B95.61 - METHICILLIN SUSCEP STAPH INFCT CAUSING DIS CLASSD ELSWHR SNOMED Code(s): 142771600 (2) Leukocytosis Current Visit: Yes Status: Acute Code(s): D72.829 - ELEVATED WHITE BLOOD CELL COUNT, UNSPECIFIED SNOMED Code(s): 253789885 (3) Aortic valve endocarditis Current Visit: Yes Status: Acute Code(s): I35.8 - OTHER NONRHEUMATIC AORTIC VALVE DISORDERS SNOMED Code(s): 55586329 Plan: 1patient with MSSA bacteremia in this patient who did have a history of chronic back pain with recent worsening and also have a history of extensive lumbosacral spine surgery with fusion, now with a positive blood culture with MSSA, with a high clinical probability source of this bacteremia being the lumbosacral spine however the patient did have MRI that was reported negative for infection, the patient did have a VINCE completed with a small vegetation on the aortic valve concerning for possible endocarditis 2-blood cultures will be repeated daily to document clearance of his bacteremia 3-patient antibiotic adjusted to naficillin that will be continued and will monitor clinical course closely will get a PICC line once he clear his bactere bobby Dictation was produced using [employer] dictation software. please excuse any grammatical, word or spelling errors. Time with Patient: Less than 30
[2023-05-29] MEDS: AMIODARONE 450 MG in DEXTROSE 5% IN WATER 250 ML IV SCH (18:06)
--- NOTE | 2023-05-29 23:12 | CE ---
CARDIAC ELECTROPHYSIOLOGY REPORT PROCEDURE PERFORMED: Electrical cardioversion. INDICATION: New onset atrial fibrillation with mild LV dysfunction. CLINICAL INFORMATION: Mr. Jose Raul Lentz is a 63-year-old gentleman with history of hypertension, and hyperlipidemia, who came into the hospital with generalized weakness, disorientation, has bacteremia with Staph aureus, methicillin sensitive and then also demonstrated atrial fibrillation. After treating him with Eliquis and initially with heparin, he underwent a transesophageal echo yesterday, which revealed no thrombus or shunt and he does have a questionable vegetation on the aortic cusp. He was advised electrical cardioversion and brought in for the procedure after due discussion with the patient as well as his . PROCEDURE NOTE: Under the influence of [id number] intravenous anesthetic agent with the attendance of the anesthesiologist, an initial shock of 120 joules was delivered in a synchronized fashion to the R-wave. The patient remained in atrial fib. A 2nd shock was then delivered at 200 joules. He converted to sinus rhythm, remained hemodynamically stable and neurologically intact. This was a successful electrical cardioversion. The patient was sent to the room in a stable condition. MMODL / IJN: [id number] /
--- NOTE | 2023-05-30 02:51 | PN ---
PROGRESS NOTE SUBJECTIVE: Mr. Lentz is a gentleman with Staph aureus bacteremia, recent onset atrial fibrillation, multiple previous back surgeries, hypertension. He is in atrial fib today. Yesterday, transesophageal echo revealed a questionable area of vegetation at the aortic cusp. Probably, this is not significant, but given this, we will continue IV antibiotics and repeat a transesophageal echo in about 4 to 6 weeks. However, the patient is in atrial fibrillation. Transesophageal echo does not reveal any thrombus or shunt. I will proceed with electrical cardioversion today. I explained the rationale to the patient and his . OBJECTIVE: VITAL SIGNS: Stable. CARDIOVASCULAR: S1, S2 heard normally. Irregular rate and rhythm. Short systolic murmur at the base. LUNGS: Clear. ABDOMEN: Unremarkable. LOWER EXTREMITIES: Unremarkable. The patient wishes to proceed with electrical cardioversion that is scheduled for later on today. MMODL / IJN: [id number] /
--- NOTE | 2023-05-30 11:48 | P.PN ---
Subjective patient is seen for follow-up for hyponatremia. Sodium staying at 129 No significant complaints today. Maintained on sodium chloride tabs 1 g twice a day Also maintained on sodium bicarb for metabolic acidosis. Blood pressure is not elevated. Objective - Vital Signs Vital signs: Vital Signs Temp 98.1 F 05/30/23 08:53 Pulse 73 05/30/23 08:53 Resp 18 05/30/23 08:53 BP 145/66 05/30/23 08:53 Pulse Ox 99 05/30/23 08:53 FiO2 Intake & Output 05/29/23 05/30/23 05/30/23 18:59 06:59 18:59 Intake Total 305 10 Output Total 1000 1400 350 Balance -118 -6608 -133 Weight 94 kg 98.5 kg Intake: IV 305 10 Invasive Line 4 5 Invasive Line 5 10 Output: Urine 1000 1400 350 Other: Voiding Method Indwelling Catheter Indwelling Catheter Indwelling Catheter # Bowel Movements 1 1 1 - Exam patient is awake, comfortable, no acute distress Examination of the heart S1 and S2 Examination of the lungs bilateral breath sounds are heard Abdomen is soft nontender Examination of lower extremities shows trace edema [employer] exam grossly intact - Labs CBC & Chem 7: 05/29/23 09:16 05/29/23 09:16 Labs: Abnormal Lab Results - Last 24 Hours (Table) 05/29/23 Range/Units 09:16 Monocytes # 1.1 H (0-1.0) k/uL Microbiology - Last 24 Hours (Table) 05/26/23 03:46 Blood Culture Gram Stain - Final Blood Blood Culture - Final Staphylococcus aureus 05/27/23 09:06 Blood Culture Gram Stain - Final Blood Blood Culture - Final Staphylococcus aureus 05/28/23 10:39 Blood Culture - Preliminary Blood Assessment and Plan Assessment: 1. Hyponatremia from poor solute intake. Urine osmolality 384. Urine sodium less than 20. TSH normal. No improvement in sodium level with normal saline. Improving. Sodium level stable at 129. Maintained on sodium chloride tabs 1 g twice a day 2. Staph aureus bacteremia. Concern for pneumonia. Also concern for cholecystitis - HIDA scan showed biliary hyperkinesia.. No infectious process noted on lumbar MRI. Aortic valve vegetation noted on VINCE. 3. Benign hypertension. Controlled. 4. Metabolic acidosis secondary to lactic acidosis and IV fluids. On oral bicarb. Stable. 5. A-fib with RVR s/p Taylor buckip. On Lopressor. 6. Cardiomyopathy ejection fraction of 45 to 50%. Plan: continue with sodium chloride 1 g twice a day Follow-up on labs today Repeat labs in a.m. Encourage increased protein intake
[2023-05-30 11:55] LABS: African American GFR (CKD) >90 (>60 ml/min/1.73 sqM); Anion Gap 5 mmol/L; Blood Urea Nitrogen 17 mg/dL (9-20); Carbon Dioxide 23 mmol/L (22-30); Chloride 101 mmol/L (98-107); Glucose 113 mg/dL (74-99); Magnesium 1.9 mg/dL (1.6-2.3); Non-African American GFR(CKD) >90 (>60 ml/min/1.73 sqM); Potassium 4.5 mmol/L (3.5-5.1); Sodium 129 mmol/L (137-145)
[2023-05-30 12:11] LABS: Basophils % (A) 0 %; Eosinophils # (A) 0.1 k/uL (0-0.7); Eosinophils % (A) 1 %; HCT 28.6 % (39.0-53.0); Hypochromasia Slight; Lymphocytes # (A) 1.6 k/uL (1.0-4.8); Lymphocytes % (A) 16 %; MCH 36.6 pg (25.0-35.0); MCHC 31.4 g/dL (31.0-37.0); MCV 116.7 fL (80.0-100.0); Macrocytosis Marked; Monocytes # (A) 0.9 k/uL (0-1.0); Monocytes % (A) 9 %; Neutrophils # (A) 6.8 k/uL (1.3-7.7); Neutrophils % (A) 71 %; Platelet Count 218 k/uL (150-450); RBC 2.45 m/uL (4.30-5.90); RDW 12.8 % (11.5-15.5); WBC 9.7 k/uL (3.8-10.6)
--- NOTE | 2023-05-30 13:41 | P.PN ---
Subjective Progress Note Date: 05/30/23 Hospital Course: 63-year-old male with history of hypertension presenting with confusion and de hydration. In the ED, temperature was 97.7, pulse 110, blood pressure 87/66, saturating at 96% on room air. WBC 15.6, hemoglobin 13.5, platelet 112, INR 1.2, sodium 123, potassium 4, bicarb 16, anion gap 14, BUN 17, creatinine 0.59, lactate 3.3, total bili 1.5, AST 68, ALT 27, ALP 186, troponin 2.37, urinalysis negative for nitrites and leukocyte esterase. EKG shows supraventricular tachycardia, likely sinus, right bundle branch block chest x-ray shows underinflated, opacity near the right hilum. Patient being admitted for severe dehydration, NSTEMI and sepsis secondary to pneumonia. Patient is also found to be bacteremic, growing MSSA. ID also consulted. Echocardiogram shows mildly im paired systolic function with wall motion abnormalities however, no vegetations noted. Nephrology also consulted due to hyponatremia, likely in the setting of poor solute intake, improving. MRI spine did not show any infectious process. VINCE did not show small vegetation on the left coronary cusp of aortic valve measuring 4 mm, mild aortic regurgitation, moderately reduced LV systolic function at 40%. Patient was also in A-fib, underwent cardioversion, successful. On nafcillin. Will likely need PICC line and 4 to 6 weeks of IV antibiotics. Subjective: Patient seen and examined at bedside. Overnight noted to have some dark brown/tarry stools. Hemodynamically stable. Patient is on Eliquis. Complaining of back pain. Pertinent positives and negatives as discussed above, a complete review of systems was performed and all other systems are negative. Vitals Signs Reviewed. General: Nontoxic, no distress, appears at stated age Derm: Warm, dry Head: Atraumatic, normocephalic, symmetric Eyes: EOMI, no lid lag, anicteric sclera Mouth: No lip lesion, mucus membranes moist Cardiovascular: S1S2, systolic murmur Lungs: CTA bilateral, no rhonchi, no rales, no accessory muscle use Abdominal: Soft, nontender to palpation, no guarding, no appreciable organomegaly Ext: No gross muscle atrophy, no edema, no contractures, lumbar spinal tenderness Neuro: CN II-XI grossly intact, no focal neuro deficits Psych: Alert, oriented, appropriate affect Data Reviewed Today: Pertinent Labs: WBC 9.7, hemoglobin 9, sodium 129, creatinine 0.42, magnesium 1.9 Imaging: No new imaging Assessment and Plan: Patient is severely ill, needs close monitoring. Sepsis secondary to aortic valve endocarditis MSSA bacteremia Severe dehydration, resolved Persistent hyponatremia, now euvolemic, improving High anion gap metabolic acidosis resolved Lactic acidosis, resolved NSTEMI, likely type II Systolic cardiomyopathy Paroxysmal atrial fibrillation with RVR status post cardioversion Hyperbilirubinemia, resolved Thrombocytopenia, likely in the setting of sepsis, resolved Acute encephalopathy, improving -Blood cultures no growth to date, continue on nafcillin 2 g IV every 4 hours, ID following, will likely need PICC line with long-term antibiotics -Cardiothoracic recommending no acute interventions -Nephrology note reviewed, on sodium chloride tab 1 g twice daily, sodium bicarb 650 twice daily, on fluid restriction -Cardiology following, successful cardioversion, continue metoprolol 50 3 times daily, amiodarone 200 twice daily, Eliquis 5 twice daily - No active chest pain - Continue aspirin 81 mg, atorvastatin 40 mg Possible acute GI bleed - Hemoglobin slowly downtrending - No convincing melena, has dark brown/tarry stools - Will start patient on pantoprazole 40 IV twice daily - If hemoglobin continues to downtrend, will involve general surgery -Continue Eliquis for now History of alcohol dependence - On CIWA protocol, Ativan as needed, monitor for sedation - Thiamine 100 mg daily Chronic back pain - On oxy 10 3 times daily, morphine 2 IV every 6 hours as needed DVT ppx: Eliquis Code status: Full code Anticipated discharge place: Pending clinical course Anticipated discharge time: Pending clinical course Objective - Vital Signs Vital signs: Vital Signs Temp 98.0 F 05/30/23 11:54 Pulse 71 05/30/23 11:54 Resp 18 05/30/23 11:54 BP 131/63 05/30/23 11:54 Pulse Ox 99 05/30/23 11:54 FiO2 Intake & Output 05/29/23 05/30/23 05/30/23 18:59 06:59 18:59 Intake Total 305 10 Output Total 1000 1400 350 Balance -564 -3289 -776 Weight 94 kg 98.5 kg Intake: IV 305 10 Invasive Line 4 5 Invasive Line 5 10 Output: Urine 1000 1400 350 Other: Voiding Method Indwelling Catheter Indwelling Catheter Indwelling Catheter # Bowel Movements 1 1 1 - Labs CBC & Chem 7: 05/30/23 10:08 05/30/23 10:08 Labs: Abnormal Lab Results - Last 24 Hours (Table) 05/30/23 05/30/23 Range/Units 10:08 10:08 RBC 2.45 L (4.30-5.90) m/uL Hgb 9.0 L (13.0-17.5) gm/dL Hct 28.6 L (39.0-53.0) % MCV 116.7 H (80.0-100.0) fL MCH 36.6 H (25.0-35.0) pg Macrocytosis Marked A Sodium 129 L (137-145) mmol/L Creatinine 0.42 L (0.66-1.25) mg/dL Glucose 113 H (74-99) mg/dL Calcium 8.0 L (8.4-10.2) mg/dL Microbiology - Last 24 Hours (Table) 05/26/23 03:46 Blood Culture Gram Stain - Final Blood Blood Culture - Final Staphylococcus aureus 05/27/23 09:06 Blood Culture Gram Stain - Final Blood Blood Culture - Final Staphylococcus aureus 05/28/23 10:39 Blood Culture - Preliminary Blood
[2023-05-30] MEDS: PANTOPRAZOLE 40 MG/10 ML VIAL IVP SCH (15:26)
--- NOTE | 2023-05-30 16:06 | P.PN ---
Subjective Progress Note Date: 05/30/23 Principal diagnosis: Reason for follow-up is MSSA bacteremia and possible discitis Patient is a 63-year-old male with a past medical history significant for hypertension patient apparently did have a chronic back pain for which the patient did have surgery done by Dr. Love and did have a lumbar spinal fusion, patient to present to the hospital with weakness confusion and debility he did have a fever and noticed to have positive blood culture with MSSA. Patient did have a VINCE completed on 05/28/2023 reported as 4 mm vegetation on the aortic valve. On today's evaluation that is 05/30/2023,the patient denies any fever or any chills, patient is breathing comfortably on room air, the patient denies chest pain shortness of breath and no significant cough, patient denies abdominal pain, no nausea vomiting or diarrhea. Feeling better today. Patient white count is 9.7, creatinine 0.42 blood culture 05/28/2023 so far negative Objective - Vital Signs Vital signs: Vital Signs Temp 98.0 F 05/30/23 11:54 Pulse 71 05/30/23 11:54 Resp 18 05/30/23 11:54 BP 131/63 05/30/23 11:54 Pulse Ox 99 05/30/23 11:54 FiO2 Intake & Output 05/29/23 05/30/23 05/30/23 18:59 06:59 18:59 Intake Total 305 10 Output Total 1000 1400 350 Balance -280 -6906 -311 Weight 94 kg 98.5 kg Intake: IV 305 10 Invasive Line 4 5 Invasive Line 5 10 Output: Urine 1000 1400 350 Other: Voiding Method Indwelling Catheter Indwelling Catheter Indwelling Catheter # Bowel Movements 1 1 1 - Exam GENERAL DESCRIPTION: Middle-age male lying in bed in no distress RESPIRATORY SYSTEM: Unlabored breathing , decreased breath sounds at bases HEART: S1 S2 regular rate and rhythm , ABDOMEN: Soft , no tenderness EXTREMITIES: No edema feet - Labs CBC & Chem 7: 05/30/23 10:08 05/30/23 10:08 Labs: Abnormal Lab Results - Last 24 Hours (Table) 05/29/23 05/30/23 05/30/23 Range/Units 09:16 10:08 10:08 RBC 2.45 L (4.30-5.90) m/uL Hgb 9.0 L (13.0-17.5) gm/dL Hct 28.6 L (39.0-53.0) % MCV 116.7 H (80.0-100.0) fL MCH 36.6 H (25.0-35.0) pg Monocytes # 1.1 H (0-1.0) k/uL Macrocytosis Marked A Sodium 129 L (137-145) mmol/L Creatinine 0.42 L (0.66-1.25) mg/dL Glucose 113 H (74-99) mg/dL Calcium 8.0 L (8.4-10.2) mg/dL Microbiology - Last 24 Hours (Table) 05/26/23 03:46 Blood Culture Gram Stain - Final Blood Blood Culture - Final Staphylococcus aureus 05/27/23 09:06 Blood Culture Gram Stain - Final Blood Blood Culture - Final Staphylococcus aureus 05/28/23 10:39 Blood Culture - Preliminary Blood Assessment and Plan (1) MSSA bacteremia Current Visit: Yes Status: Acute Code(s): R78.81 - BACTEREMIA; B95.61 - METHICILLIN SUSCEP STAPH INFCT CAUSING DIS CLASSD ELSWHR SNOMED Code(s): 817615132 (2) Leukocytosis Current Visit: Yes Status: Acute Code(s): D72.829 - ELEVATED WHITE BLOOD CELL COUNT, UNSPECIFIED SNOMED Code(s): 354283398 (3) Aortic valve endocarditis Current Visit: Yes Status: Acute Code(s): I35.8 - OTHER NONRHEUMATIC AORTIC VALVE DISORDERS SNOMED Code(s): 01138085 Plan: 1patient with MSSA bacteremia in this patient who did have a history of chronic back pain with recent worsening and also have a history of extensive lumbosacral spine surgery with fusion, now with a positive blood culture with MSSA, with a high clinical probability source of this bacteremia being the lumbosacral spine however the patient did have MRI that was reported negative for infection, the patient did have a VINCE completed with a small vegetation on the aortic valve concerning for possible endocarditis 2-blood cultures 05/28/2023 so far negative blood cultures repeated this morning and will order 1 set for tomorrow morning 3-patient currently on naficillin, patient is a PICC line was replaced bacteremia Multiple questions answered Dictation was produced using [employer] software. please excuse any grammatical, word or spelling errors. Time with Patient: Less than 30
--- NOTE | 2023-05-30 21:00 | P.PN ---
Subjective Progress Note Date: 05/30/23 History of present illness: This is A 63-year-old male with past medical history spinal infection with bacteremia, history of hypertension. Patient presented to the hospital with altered mentation and received IV fluids. Lactic acids were high and he improved. His blood culture was positive for MRSA. We were consulted for elevated troponins. Patient also treated for hyponatremia, sepsis and paroxysmal atrial fibrillation. Patient is currently in atrial fibrillation in the 80s. He is on Cardizem drip at 7.5 mg. He is also on heparin drip. We are waiting for echocardiogram to be reported. Blood pressure 98/58, heart rate 78, pulse ox 96% on room air. Repeat blood work reveals WBC 17.4, hemoglobin 1.7, platelet count 92. Sed rate 89. Sodium 125, potassium 3.8, BUN 21 creatinine 0.45. Alkaline phosphatase 140. C-reactive protein 19.5. Albumin 2.5. TSH 0.643. Progress note May 30, 2023 Patient underwent VINCE which showed a 4 mm possible vegetation on left coronary cusp also aortic leaflet. Patient also underwent cardioversion procedure yesterday. He is maintaining normal sinus rhythm. However it is noted that patient is having black tarry stools and his hemoglobin is dropped from 12 on presentation to 9 today. Due to this I will stop his anticoagulation. Physical examination: Gen: This is a 63-year-old male. He is in no acute distress. VS: reviewed HEENT: Head is atraumatic, normocephalic. Pupils equal, round. Sclerae is anicteric. NECK: Supple. No JVD. LUNGS: Bilateral air entry. No intercostal retractions. HEART: Irregular rate and rhythm. Short systolic murmur. EXTREMITIES: No pedal edema. No calf tenderness. NEUROLOGICAL: Patient is awake, alert and oriented. Assessment: Atrial fibrillation with RVR with right bundle branch block pattern, nonspecific ST-T wave changes. S/p cardioversion, currently sinus rhythm. Sepsis with MRSA bacteremia Elevated troponin possibly related to sepsis and atrial fibrillation with RVR Hyponatremia Multiple back surgeries Plan: Patient's anticoagulation because of black tarry stools, Hemoccult positive stools and hemoglobin dropped from 12 on admission to 9 today. Continue to monitor hemoglobin levels IV antibiotics as per infectious disease team Objective - Vital Signs Vital signs: Vital Signs Temp 97.7 F 05/30/23 15:38 Pulse 68 05/30/23 15:38 Resp 18 05/30/23 15:38 BP 133/72 05/30/23 15:38 Pulse Ox 100 05/30/23 15:38 FiO2 Intake & Output 05/30/23 05/30/23 05/31/23 06:59 18:59 06:59 Intake Total 20 Output Total 1400 800 Balance -1400 -780 Weight 98.5 kg Intake: IV 20 Invasive Line 5 20 Output: Urine 1400 800 Other: Voiding Method Indwelling Catheter Indwelling Catheter # Bowel Movements 1 1 - Labs CBC & Chem 7: 05/30/23 10:08 05/30/23 10:08 Labs: Abnormal Lab Results - Last 24 Hours (Table) 05/30/23 05/30/23 Range/Units 10:08 10:08 RBC 2.45 L (4.30-5.90) m/uL Hgb 9.0 L (13.0-17.5) gm/dL Hct 28.6 L (39.0-53.0) % MCV 116.7 H (80.0-100.0) fL MCH 36.6 H (25.0-35.0) pg Macrocytosis Marked A Sodium 129 L (137-145) mmol/L Creatinine 0.42 L (0.66-1.25) mg/dL Glucose 113 H (74-99) mg/dL Calcium 8.0 L (8.4-10.2) mg/dL Microbiology - Last 24 Hours (Table) 05/28/23 10:39 Blood Culture - Preliminary Blood 05/26/23 03:46 Blood Culture Gram Stain - Final Blood Blood Culture - Final Staphylococcus aureus 05/27/23 09:06 Blood Culture Gram Stain - Final Blood Blood Culture - Final Staphylococcus aureus
[2023-05-30] MEDS: MAG HYDROX/AL HYDROX/SIMETH 30 ML CUP PO PRN (21:12)
[2023-05-30] MEDS: AMIODARONE 200 MG TAB PO SCH (21:13)
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
--- NOTE | 2023-05-31 09:20 | P.PN ---
Subjective Progress Note Date: 05/31/23 History of present illness: This is A 63-year-old male with past medical history spinal infection with bacteremia, history of hypertension. Patient presented to the hospital with altered mentation and received IV fluids. Lactic acids were high and he improved. His blood culture was positive for MRSA. We were consulted for elevated troponins. Patient also treated for hyponatremia, sepsis and paroxysmal atrial fibrillation. Patient is currently in atrial fibrillation in the 80s. He is on Cardizem drip at 7.5 mg. He is also on heparin drip. We are waiting for echocardiogram to be reported. Blood pressure 98/58, heart rate 78, pulse ox 96% on room air. Repeat blood work reveals WBC 17.4, hemoglobin 1.7, platelet count 92. Sed rate 89. Sodium 125, potassium 3.8, BUN 21 creatinine 0.45. Alkaline phosphatase 140. C-reactive protein 19.5. Albumin 2.5. TSH 0.643. Progress note May 30, 2023 Patient underwent VINCE which showed a 4 mm possible vegetation on left coronary cusp also aortic leaflet. Patient also underwent cardioversion procedure yesterday. He is maintaining normal sinus rhythm. However it is noted that patient is having black tarry stools and his hemoglobin is dropped from 12 on presentation to 9 today. Due to this I will stop his anticoagulation. May 31, 2023 Patient is maintaining normal sinus rhythm. He has a resting left bundle branch block. His morning labs are still awaited. We are waiting for his CBC levels to see if it has dropped any further. Patient reports 2 black stools overnight Systolic blood pressure 120s to 130s mmHg. Heart rate 70s to 80s beats per minute, sinus rhythm on telemetry. Physical examination: NECK: Supple. No JVD. LUNGS: Bilateral air entry. No intercostal retractions. HEART: Regular pulses, EXTREMITIES: No pedal edema. No calf tenderness. NEUROLOGICAL: Patient is awake, alert and oriented. Assessment: Atrial fibrillation with RVR with right bundle branch block pattern, nonspecific ST-T wave changes. S/p cardioversion, currently sinus rhythm. Sepsis with MRSA bacteremia Elevated troponin possibly related to sepsis and atrial fibrillation with RVR Hyponatremia Multiple back surgeries Plan: Patient's anticoagulation because of black tarry stools, Hemoccult positive stools and hemoglobin dropped from 12 on admission to 9. Await today's CBC levels. Recommend GI/surgical consult for GI bleed evaluation due to positive Hemoccult blood and black tarry stools. Patient is cleared from cardiovascular standpoint to undergo upper and lower GI endoscopies Continue to monitor hemoglobin levels IV antibiotics as per infectious disease team Objective - Vital Signs Vital signs: Vital Signs Temp 98.1 F 05/31/23 04:00 Pulse 75 05/31/23 08:00 Resp 18 05/31/23 08:00 BP 129/69 05/31/23 08:00 Pulse Ox 100 05/31/23 08:00 FiO2 Intake & Output 05/30/23 05/31/23 05/31/23 18:59 06:59 18:59 Intake Total 20 20 Output Total 800 700 Balance -780 -680 Intake: IV 20 20 Invasive Line 5 20 20 Oral 0 Output: Urine 800 700 Other: Voiding Method Indwelling Catheter Indwelling Catheter # Bowel Movements 1 - Labs CBC & Chem 7: 05/30/23 10:08 05/30/23 10:08 Labs: Abnormal Lab Results - Last 24 Hours (Table) 05/30/23 05/30/23 Range/Units 10:08 10:08 RBC 2.45 L (4.30-5.90) m/uL Hgb 9.0 L (13.0-17.5) gm/dL Hct 28.6 L (39.0-53.0) % MCV 116.7 H (80.0-100.0) fL MCH 36.6 H (25.0-35.0) pg Macrocytosis Marked A Sodium 129 L (137-145) mmol/L Creatinine 0.42 L (0.66-1.25) mg/dL Glucose 113 H (74-99) mg/dL Calcium 8.0 L (8.4-10.2) mg/dL Microbiology - Last 24 Hours (Table) 05/29/23 09:16 Blood Culture - Preliminary Blood 05/28/23 10:39 Blood Culture - Preliminary Blood
[2023-05-31 10:12] LABS: Basophils % (A) 0 %; Eosinophils # (A) 0.1 k/uL (0-0.7); Eosinophils % (A) 1 %; HCT 24.8 % (39.0-53.0); HGB 7.7 gm/dL (13.0-17.5); Hypochromasia Slight; Lymphocytes # (A) 1.7 k/uL (1.0-4.8); Lymphocytes % (A) 19 %; MCH 35.9 pg (25.0-35.0); Macrocytosis Marked; Mean Platelet Volume 10.5; Monocytes # (A) 0.8 k/uL (0-1.0); Monocytes % (A) 9 %; Neutrophils # (A) 6.3 k/uL (1.3-7.7); Neutrophils % (A) 68 %; Platelet Count 260 k/uL (150-450); RBC 2.14 m/uL (4.30-5.90); RDW 13.6 % (11.5-15.5); WBC 9.2 k/uL (3.8-10.6)
[2023-05-31 10:31] LABS: African American GFR (CKD) >90 (>60 ml/min/1.73 sqM); Anion Gap 6 mmol/L; Blood Urea Nitrogen 16 mg/dL (9-20); Calcium 7.7 mg/dL (8.4-10.2); Carbon Dioxide 21 mmol/L (22-30); Chloride 99 mmol/L (98-107); Glucose 84 mg/dL (74-99); Non-African American GFR(CKD) >90 (>60 ml/min/1.73 sqM); Sodium 126 mmol/L (137-145)
[2023-05-31 10:32] LABS: Potassium 3.9 mmol/L (3.5-5.1)
--- NOTE | 2023-05-31 10:58 | P.PN ---
Subjective patient is seen for follow-up for hyponatremia. Sodium dropped to 126 today No significant complaints today. Maintained on sodium chloride tabs 1 g twice a day. Sodium had not improved with IV fluids on initial admission. Also maintained on sodium bicarb for metabolic acidosis. Blood pressure is not elevated. Objective - Vital Signs Vital signs: Vital Signs Temp 98.1 F 05/31/23 04:00 Pulse 75 05/31/23 08:00 Resp 18 05/31/23 08:00 BP 129/69 05/31/23 08:00 Pulse Ox 100 05/31/23 08:00 FiO2 Intake & Output 05/30/23 05/31/23 05/31/23 18:59 06:59 18:59 Intake Total 20 20 10 Output Total 800 700 Balance -780 -680 10 Intake: IV 20 20 10 Invasive Line 5 20 20 10 Oral 0 Output: Urine 800 700 Other: Voiding Method Indwelling Catheter Indwelling Catheter Indwelling Catheter # Bowel Movements 1 - Exam patient is awake, comfortable, no acute distress Examination of the heart S1 and S2 Examination of the lungs bilateral breath sounds are heard Abdomen is soft nontender Examination of lower extremities shows trace edema [employer] exam grossly intact - Labs CBC & Chem 7: 05/31/23 08:05 05/31/23 08:05 Labs: Abnormal Lab Results - Last 24 Hours (Table) 05/30/23 05/30/23 05/31/23 Range/Units 10:08 10:08 08:05 RBC 2.45 L 2.14 L (4.30-5.90) m/uL Hgb 9.0 L 7.7 L (13.0-17.5) gm/dL Hct 28.6 L 24.8 L (39.0-53.0) % MCV 116.7 H 116.0 H (80.0-100.0) fL MCH 36.6 H 35.9 H (25.0-35.0) pg Macrocytosis Marked A Marked A Sodium 129 L (137-145) mmol/L Carbon Dioxide (22-30) mmol/L Creatinine 0.42 L (0.66-1.25) mg/dL Glucose 113 H (74-99) mg/dL Calcium 8.0 L (8.4-10.2) mg/dL 05/31/23 Range/Units 08:05 RBC (4.30-5.90) m/uL Hgb (13.0-17.5) gm/dL Hct (39.0-53.0) % MCV (80.0-100.0) fL MCH (25.0-35.0) pg Macrocytosis Sodium 126 L (137-145) mmol/L Carbon Dioxide 21 L (22-30) mmol/L Creatinine 0.37 L (0.66-1.25) mg/dL Glucose (74-99) mg/dL Calcium 7.7 L (8.4-10.2) mg/dL Microbiology - Last 24 Hours (Table) 05/29/23 09:16 Blood Culture - Preliminary Blood 05/28/23 10:39 Blood Culture - Preliminary Blood Assessment and Plan Assessment: 1. Hyponatremia from poor solute intake. Urine osmolality 384. Urine sodium less than 20. TSH normal. No improvement in sodium level with normal saline. Maintained on sodium chloride tabs 1 g twice a day. Sodium dropped to 126 today. 2. Staph aureus bacteremia. Concern for pneumonia. Also concern for cholecystitis - HIDA scan showed biliary hyperkinesia.. No infectious process noted on lumbar MRI. Aortic valve vegetation noted on VINCE. 3. Benign hypertension. Controlled. 4. Metabolic acidosis secondary to lactic acidosis and IV fluids. On oral bicarb. Stable. 5. A-fib with RVR s/p Cardizem drip. On Lopressor. 6. Cardiomyopathy ejection fraction of 45 to 50%. Plan: continue with sodium chloride 1 g twice a day IV Lasix 20 mg 1 Repeat sodium in 4 hours. If serum sodium does not improve patient will be given Samsca. Encourage increased protein intake
--- NOTE | 2023-05-31 11:30 | P.PN ---
Subjective Progress Note Date: 05/31/23 Hospital Course: 63-year-old male with history of hypertension presenting with confusion and de hydration. In the ED, temperature was 97.7, pulse 110, blood pressure 87/66, saturating at 96% on room air. WBC 15.6, hemoglobin 13.5, platelet 112, INR 1.2, sodium 123, potassium 4, bicarb 16, anion gap 14, BUN 17, creatinine 0.59, lactate 3.3, total bili 1.5, AST 68, ALT 27, ALP 186, troponin 2.37, urinalysis negative for nitrites and leukocyte esterase. EKG shows supraventricular tachycardia, likely sinus, right bundle branch block chest x-ray shows underinflated, opacity near the right hilum. Patient being admitted for severe dehydration, NSTEMI and sepsis secondary to pneumonia. Patient is also found to be bacteremic, growing MSSA. ID also consulted. Echocardiogram shows mildly im paired systolic function with wall motion abnormalities however, no vegetations noted. Nephrology also consulted due to hyponatremia, likely in the setting of poor solute intake, improving. MRI spine did not show any infectious process. VINCE did not show small vegetation on the left coronary cusp of aortic valve measuring 4 mm, mild aortic regurgitation, moderately reduced LV systolic function at 40%. Patient was also in A-fib, underwent cardioversion, successful. On nafcillin. Will likely need PICC line and 4 to 6 weeks of IV antibiotics. Patient also having episodes of melena. Eliquis currently on hold. Surgery recommended EGD. Subjective: Patient seen and examined at bedside. Continues to have melenic stools. Continues to complain about back pain. No other new complaints. Pertinent positives and negatives as discussed above, a complete review of systems was performed and all other systems are negative. Vitals Signs Reviewed. General: Nontoxic, no distress, appears at stated age Derm: Warm, dry Head: Atraumatic, normocephalic, symmetric Eyes: EOMI, no lid lag, anicteric sclera Mouth: No lip lesion, mucus membranes moist Cardiovascular: S1S2, systolic murmur Lungs: CTA bilateral, no rhonchi, no rales, no accessory muscle use Abdominal: Soft, nontender to palpation, no guarding, no appreciable organomegaly Ext: No gross muscle atrophy, no edema, no contractures, lumbar spinal tenderness Neuro: CN II-XI grossly intact, no focal neuro deficits Psych: Alert, oriented, appropriate affect Data Reviewed Today: Pertinent Labs: WBC 9.2, hemoglobin 7.7, sodium 126, bicarb 21, BUN 16, creatinine 0.37 Imaging: No new imaging Assessment and Plan: Patient is severely ill, needs close monitoring. Acute GI bleed, likely upper - On IV Protonix 40 twice daily - General surgery following - Eliquis on hold - Likely would benefit from EGD - Hemoglobin continues to drop - Repeat CBC in the afternoon Sepsis secondary to aortic valve endocarditis MSSA bacteremia Severe dehydration, resolved Persistent hyponatremia, now euvolemic High anion gap metabolic acidosis resolved Lactic acidosis, resolved NSTEMI, likely type II Systolic cardiomyopathy Paroxysmal atrial fibrillation with RVR status post cardioversion Hyperbilirubinemia, resolved Thrombocytopenia, likely in the setting of sepsis, resolved Acute encephalopathy, improving -Blood cultures no growth to date, continue on nafcillin 2 g IV every 4 hours, ID following, will likely need PICC line with long-term antibiotics -Cardiothoracic recommending no acute interventions Discussed management with cardiology, continue to hold Eliquis, continue metoprolol 50 3 times daily, amiodarone 200 twice daily -Nephrology note reviewed, on sodium chloride tab 1 g twice daily, sodium bicarb 650 twice daily, on fluid restriction, also 1 x 20 IV Lasix, may need Samsca if repeat sodium is worsening -Cardiology following, successful cardioversion, continue metoprolol 50 3 times daily, amiodarone 200 twice daily, Eliquis 5 twice daily - No active chest pain - Continue aspirin 81 mg, atorvastatin 40 mg History of alcohol dependence - On CIWA protocol, Ativan as needed, monitor for sedation - Thiamine 100 mg daily Chronic back pain - On oxy 10 3 times daily, morphine 2 IV every 6 hours as needed DVT ppx: SCDs Code status: Full code Anticipated discharge place: Pending clinical course Anticipated discharge time: Pending clinical course Objective - Vital Signs Vital signs: Vital Signs Temp 98.1 F 05/31/23 04:00 Pulse 75 05/31/23 08:00 Resp 18 05/31/23 08:00 BP 129/69 05/31/23 08:00 Pulse Ox 100 05/31/23 08:00 FiO2 Intake & Output 05/30/23 05/31/23 05/31/23 18:59 06:59 18:59 Intake Total 20 20 10 Output Total 800 700 400 Balance -780 -680 -390 Intake: IV 20 20 10 Invasive Line 5 20 20 10 Oral 0 Output: Urine 800 700 400 Other: Voiding Method Indwelling Catheter Indwelling Catheter Indwelling Catheter # Bowel Movements 1 1 - Labs CBC & Chem 7: 05/31/23 08:05 05/31/23 08:05 Labs: Abnormal Lab Results - Last 24 Hours (Table) 05/30/23 05/30/23 05/31/23 Range/Units 10:08 10:08 08:05 RBC 2.45 L 2.14 L (4.30-5.90) m/uL Hgb 9.0 L 7.7 L (13.0-17.5) gm/dL Hct 28.6 L 24.8 L (39.0-53.0) % MCV 116.7 H 116.0 H (80.0-100.0) fL MCH 36.6 H 35.9 H (25.0-35.0) pg Macrocytosis Marked A Marked A Sodium 129 L (137-145) mmol/L Carbon Dioxide (22-30) mmol/L Creatinine 0.42 L (0.66-1.25) mg/dL Glucose 113 H (74-99) mg/dL Calcium 8.0 L (8.4-10.2) mg/dL 05/31/23 Range/Units 08:05 RBC (4.30-5.90) m/uL Hgb (13.0-17.5) gm/dL Hct (39.0-53.0) % MCV (80.0-100.0) fL MCH (25.0-35.0) pg Macrocytosis Sodium 126 L (137-145) mmol/L Carbon Dioxide 21 L (22-30) mmol/L Creatinine 0.37 L (0.66-1.25) mg/dL Glucose (74-99) mg/dL Calcium 7.7 L (8.4-10.2) mg/dL Microbiology - Last 24 Hours (Table) 05/29/23 09:16 Blood Culture - Preliminary Blood 05/28/23 10:39 Blood Culture - Preliminary Blood
[2023-05-31] MEDS: FUROSEMIDE 10 MG/ML 2 ML VIAL IV ONE (12:41)
[2023-05-31] MEDS: SIMETHICONE 80 MG CHEWABLE PO SCH (14:14)
--- NOTE | 2023-05-31 15:45 | P.PN ---
Subjective Progress Note Date: 05/31/23 Principal diagnosis: Reason for follow-up is MSSA bacteremia and possible discitis Patient is a 63-year-old male with a past medical history significant for hypertension patient apparently did have a chronic back pain for which the patient did have surgery done by Dr. Love and did have a lumbar spinal fusion, patient to present to the hospital with weakness confusion and debility he did have a fever and noticed to have positive blood culture with MSSA. Patient did have a VINCE completed on 05/28/2023 reported as 4 mm vegetation on the aortic valve. On today's evaluation that is 05/31/2023,the patient remains to be afebrile, patient is on room air not requiring supplemental oxygen and denies any shortness of breath no chest pain or cough.Patient denies having any nausea or vomiting, no abdominal pain however did have some diarrhea. Patient white count 9.2, creatinine 0.37 blood cultures 05/28/2023 as well as 05/29/2023 so far negative Objective - Vital Signs Vital signs: Vital Signs Temp 98.1 F 05/31/23 04:00 Pulse 75 05/31/23 12:05 Resp 18 05/31/23 08:00 BP 129/69 05/31/23 08:00 Pulse Ox 100 05/31/23 08:00 FiO2 Intake & Output 05/30/23 05/31/23 05/31/23 18:59 06:59 18:59 Intake Total 20 20 20 Output Total 800 700 400 Balance -780 -680 -380 Intake: IV 20 20 20 Invasive Line 5 20 20 20 Oral 0 Output: Urine 800 700 400 Other: Voiding Method Indwelling Catheter Indwelling Catheter Indwelling Catheter # Bowel Movements 1 1 - Exam GENERAL DESCRIPTION: Middle-age male lying in bed in no distress RESPIRATORY SYSTEM: Unlabored breathing , decreased breath sounds at bases HEART: S1 S2 regular rate and rhythm , ABDOMEN: Soft , no tenderness EXTREMITIES: No edema feet - Labs CBC & Chem 7: 05/31/23 08:05 05/31/23 08:05 Labs: Abnormal Lab Results - Last 24 Hours (Table) 05/31/23 05/31/23 Range/Units 08:05 08:05 RBC 2.14 L (4.30-5.90) m/uL Hgb 7.7 L (13.0-17.5) gm/dL Hct 24.8 L (39.0-53.0) % MCV 116.0 H (80.0-100.0) fL MCH 35.9 H (25.0-35.0) pg Macrocytosis Marked A Sodium 126 L (137-145) mmol/L Carbon Dioxide 21 L (22-30) mmol/L Creatinine 0.37 L (0.66-1.25) mg/dL Calcium 7.7 L (8.4-10.2) mg/dL Microbiology - Last 24 Hours (Table) 05/29/23 09:16 Blood Culture - Preliminary Blood 05/28/23 10:39 Blood Culture - Preliminary Blood Assessment and Plan (1) MSSA bacteremia Current Visit: Yes Status: Acute Code(s): R78.81 - BACTEREMIA; B95.61 - METHICILLIN SUSCEP STAPH INFCT CAUSING DIS CLASSD [id number] SNOMED Code(s): 957699931 (2) Leukocytosis Current Visit: Yes Status: Acute Code(s): D72.829 - ELEVATED WHITE BLOOD CELL COUNT, UNSPECIFIED SNOMED Code(s): 791981432 (3) Aortic valve endocarditis Current Visit: Yes Status: Acute Code(s): I35.8 - OTHER NONRHEUMATIC AORTIC VALVE DISORDERS SNOMED Code(s): 92413395 Plan: 1patient with MSSA bacteremia in this patient who did have a history of chronic back pain with recent worsening and also have a history of extensive lumbosacral spine surgery with fusion, now with a positive blood culture with MSSA, with a high clinical probability source of this bacteremia being the lumbosacral spine however the patient did have MRI that was reported negative for infection, the patient did have a VINCE completed with a small vegetation on the aortic valve concerning for possible endocarditis 2-blood cultures 05/28/2023 as well as 05/29/2023 so far negative blood cultures if the blood culture remains to be negative at 72 hours we will get a PICC line for outpatient IV antibiotics 3-patient currently on naficillin, to continue Family at the bedside questions answered Dictation was produced using [email or web address] software. please excuse any grammatical, word or spelling errors. Time with Patient: Less than 30
[2023-05-31 17:09] LABS: HCT 23.2 % (39.0-53.0); HGB 7.4 gm/dL (13.0-17.5); Hypochromasia Slight; MCHC 32.1 g/dL (31.0-37.0); MCV 115.4 fL (80.0-100.0); Macrocytosis Marked; Mean Platelet Volume 10.1; Platelet Count 244 k/uL (150-450); RBC 2.01 m/uL (4.30-5.90); RDW 13.1 % (11.5-15.5); WBC 8.7 k/uL (3.8-10.6)
[2023-06-01 08:36] LABS: African American GFR (CKD) >90 (>60 ml/min/1.73 sqM); Anion Gap 5 mmol/L; Blood Urea Nitrogen 11 mg/dL (9-20); Carbon Dioxide 24 mmol/L (22-30); Chloride 99 mmol/L (98-107); Glucose 90 mg/dL (74-99); Non-African American GFR(CKD) >90 (>60 ml/min/1.73 sqM); Potassium 3.6 mmol/L (3.5-5.1); Sodium 128 mmol/L (137-145)
[2023-06-01 08:45] LABS: Basophils % (A) 0 %; Eosinophils % (A) 0 %; HCT 23.7 % (39.0-53.0); HGB 7.3 gm/dL (13.0-17.5); Hypochromasia Slight; Lymphocytes # (A) 1.7 k/uL (1.0-4.8); Lymphocytes % (A) 26 %; MCH 35.7 pg (25.0-35.0); MCHC 30.9 g/dL (31.0-37.0); MCV 115.4 fL (80.0-100.0); Macrocytosis Marked; Mean Platelet Volume 10.2; Monocytes # (A) 0.6 k/uL (0-1.0); Monocytes % (A) 9 %; Neutrophils % (A) 62 %; Platelet Count 241 k/uL (150-450); RBC 2.05 m/uL (4.30-5.90); RDW 13.3 % (11.5-15.5); WBC 6.5 k/uL (3.8-10.6)
[2023-06-01] MEDS: FUROSEMIDE 10 MG/ML 2 ML VIAL IV ONE (08:56)
[2023-06-01 09:47] LABS: Polychromasia Present
--- NOTE | 2023-06-01 09:47 | P.PN ---
Subjective patient is seen for follow-up for hyponatremia. Sodium dropped to 126 yesterday and patient was given a dose of IV Lasix. Sodium this morning is 128. Patient is complaining of increased lower extremity swelling. He denies any shortness of breath. blood pressure is not elevated. Systolic blood pressure in the 120s. Objective - Vital Signs Vital signs: Vital Signs Temp 97.6 F 06/01/23 08:37 Pulse 65 06/01/23 08:37 Resp 16 06/01/23 08:37 BP 128/68 06/01/23 08:37 Pulse Ox 100 06/01/23 08:37 FiO2 Intake & Output 05/31/23 06/01/23 06/01/23 18:59 06:59 18:59 Intake Total 20 10 Output Total 1425 Balance -1405 10 Intake: IV 20 10 Invasive Line 5 20 10 Oral 0 Output: Urine 1425 Other: Voiding Method Indwelling Catheter Indwelling Catheter # Bowel Movements 1 2 - Exam patient is awake, comfortable, no acute distress Examination of the heart S1 and S2 Examination of the lungs bilateral breath sounds are heard Abdomen is soft nontender Examination of lower extremities shows 2+ edema 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 - Labs CBC & Chem 7: 06/01/23 07:28 06/01/23 07:28 Labs: Abnormal Lab Results - Last 24 Hours (Table) 05/31/23 05/31/23 05/31/23 Range/Units 08:05 08:05 16:45 RBC 2.14 L (4.30-5.90) m/uL Hgb 7.7 L (13.0-17.5) gm/dL Hct 24.8 L (39.0-53.0) % MCV 116.0 H (80.0-100.0) fL MCH 35.9 H (25.0-35.0) pg MCHC (31.0-37.0) g/dL Macrocytosis Marked A Sodium 126 L 126 L (137-145) mmol/L Carbon Dioxide 21 L (22-30) mmol/L Creatinine 0.37 L (0.66-1.25) mg/dL Calcium 7.7 L (8.4-10.2) mg/dL 05/31/23 06/01/23 06/01/23 Range/Units 16:45 07:28 07:28 RBC 2.01 L 2.05 L (4.30-5.90) m/uL Hgb 7.4 L 7.3 L (13.0-17.5) gm/dL Hct 23.2 L 23.7 L (39.0-53.0) % MCV 115.4 H 115.4 H (80.0-100.0) fL MCH 37.0 H 35.7 H (25.0-35.0) pg MCHC 30.9 L (31.0-37.0) g/dL Macrocytosis Marked A Marked A Sodium 128 L (137-145) mmol/L Carbon Dioxide (22-30) mmol/L Creatinine 0.48 L (0.66-1.25) mg/dL Calcium 8.0 L (8.4-10.2) mg/dL Microbiology - Last 24 Hours (Table) 05/29/23 09:16 Blood Culture - Preliminary Blood 05/28/23 10:39 Blood Culture - Preliminary Blood Assessment and Plan Assessment: 1. Hyponatremia from poor solute intake. Urine osmolality 384. Urine sodium less than 20. TSH normal. No improvement in sodium level with normal saline. Maintained on sodium chloride tabs 1 g twice a day. status post IV Lasix yesterday. 2. Staph aureus bacteremia. Concern for pneumonia. Also concern for cholecystitis - HIDA scan showed biliary hyperkinesia.. No infectious process noted on lumbar MRI. Aortic valve vegetation noted on VINCE. 3. Benign hypertension. Controlled. 4. Metabolic acidosis secondary to lactic acidosis and IV fluids. On oral bicarb. Stable. 5. A-fib with RVR s/p Cardizem drip. On Lopressor. 6. Cardiomyopathy ejection fraction of 45 to 50%. Plan: repeat IV Lasix. Decrease sodium chloride tab Repeat sodium this afternoon
--- NOTE | 2023-06-01 12:32 | P.PN ---
Subjective HISTORY OF PRESENT ILLNESS: Patient examined this morning at bedside by Dr. Cannon. Patient denies any chest pain or pressure. He denies any shortness of breath. He denies dizziness or lightheadedness. Vital signs are stable. Telemetry reveals sinus mechanism. His Dion remains on hold for possible endoscopy. PHYSICAL EXAM: VITAL SIGNS: Reviewed. GENERAL: Well-developed in no acute distress. NECK: Supple. No JVD or thyromegaly LUNGS: Respirations even and unlabored. Lungs essentially clear to auscultation bilaterally. HEART: Regular rate and rhythm. S1 and S2 heard. EXTREMITIES: Normal range of motion. No clubbing or cyanosis. Peripheral pulses intact. No lower extremity edema ASSESSMENT: New onset paroxysmal atrial fibrillation, status post VINCE cardioversion Elevated troponin, likely type II NM Anemia Sepsis with MSSA bacteremia Possible aortic valve endocarditis, VINCE noted small area of vegetation on aortic valve Hyponatremia History of multiple back surgeries PLAN: Dion has been placed on hold Continue additional cardiac medications General surgery following. Possible endoscopy to be performed Continue telemetry monitoring Further recommendations pending patient course Nurse practitioner note has been reviewed by physician. Signing provider agrees with the documented findings, assessment, and plan of care documented by SAND TECHNOLOGIST as a scribe. Objective - Vital Signs Vital signs: Vital Signs Temp 97.6 F 06/01/23 08:37 Pulse 65 06/01/23 08:37 Resp 16 06/01/23 08:37 BP 128/68 06/01/23 08:37 Pulse Ox 100 06/01/23 08:37 FiO2 Intake & Output 05/31/23 06/01/23 06/01/23 18:59 06:59 18:59 Intake Total 20 10 10 Output Total 1425 Balance -1405 10 10 Intake: IV 20 10 10 Invasive Line 5 20 10 10 Oral 0 Output: Urine 1425 Other: Voiding Method Indwelling Catheter Indwelling Catheter Indwelling Catheter # Bowel Movements 1 2 - Labs CBC & Chem 7: 06/01/23 07:28 06/01/23 07:28 Labs: Abnormal Lab Results - Last 24 Hours (Table) 05/31/23 05/31/23 06/01/23 Range/Units 16:45 16:45 07:28 RBC 2.01 L 2.05 L (4.30-5.90) m/uL Hgb 7.4 L 7.3 L (13.0-17.5) gm/dL Hct 23.2 L 23.7 L (39.0-53.0) % MCV 115.4 H 115.4 H (80.0-100.0) fL MCH 37.0 H 35.7 H (25.0-35.0) pg MCHC 30.9 L (31.0-37.0) g/dL Macrocytosis Marked A Marked A Sodium 126 L (137-145) mmol/L Creatinine (0.66-1.25) mg/dL Calcium (8.4-10.2) mg/dL 06/01/23 Range/Units 07:28 RBC (4.30-5.90) m/uL Hgb (13.0-17.5) gm/dL Hct (39.0-53.0) % MCV (80.0-100.0) fL MCH (25.0-35.0) pg MCHC (31.0-37.0) g/dL Macrocytosis Sodium 128 L (137-145) mmol/L Creatinine 0.48 L (0.66-1.25) mg/dL Calcium 8.0 L (8.4-10.2) mg/dL Microbiology - Last 24 Hours (Table) 05/29/23 09:16 Blood Culture - Preliminary Blood 05/28/23 10:39 Blood Culture - Preliminary Blood
--- NOTE | 2023-06-01 13:28 | P.PN ---
Subjective Progress Note Date: 06/01/23 Hospital Course: 63-year-old male with history of hypertension presenting with confusion and de hydration. In the ED, temperature was 97.7, pulse 110, blood pressure 87/66, saturating at 96% on room air. WBC 15.6, hemoglobin 13.5, platelet 112, INR 1.2, sodium 123, potassium 4, bicarb 16, anion gap 14, BUN 17, creatinine 0.59, lactate 3.3, total bili 1.5, AST 68, ALT 27, ALP 186, troponin 2.37, urinalysis negative for nitrites and leukocyte esterase. EKG shows supraventricular tachycardia, likely sinus, right bundle branch block. Chest x-ray shows underinflated, opacity near the right hilum. Patient being admitted for severe dehydration, NSTEMI and sepsis likely secondary to pneumonia. Patient is also found to be bacteremic, growing MSSA. ID also consulted. Echocardiogram shows mildly impaired systolic function with wall motion abnormalities however, no vegetations noted. Nephrology also consulted due to hyponatremia, likely in the setting of poor solute intake, improving. MRI spine did not show any infectious process. VINCE did not show small vegetation on the left coronary cusp of aortic valve measuring 4 mm, mild aortic regurgitation, moderately reduced LV systolic function at 40%. This is likely the source of bacteremia. Was persistently bacteremic despite being on cefazolin. Switch to nafcillin. Patient was also in A-fib, underwent cardioversion, successful. Will likely need PICC line and 4 to 6 weeks of IV antibiotics. Patient also having episodes of melena. Eliquis currently on hold. Surgery recommended EGD. Subjective: Patient seen and examined at bedside. No new complaints. Pertinent positives and negatives as discussed above, a complete review of systems was performed and all other systems are negative. Vitals Signs Reviewed. General: Nontoxic, no distress, appears at stated age Derm: Warm, dry Head: Atraumatic, normocephalic, symmetric Eyes: EOMI, no lid lag, anicteric sclera Mouth: No lip lesion, mucus membranes moist Cardiovascular: S1S2, systolic murmur Lungs: CTA bilateral, no rhonchi, no rales, no accessory muscle use Abdominal: Soft, nontender to palpation, no guarding, no appreciable organomegaly Ext: No gross muscle atrophy, no edema, no contractures, lumbar spinal tenderness Neuro: CN II-XI grossly intact, no focal neuro deficits Psych: Alert, oriented, appropriate affect Data Reviewed Today: Pertinent Labs: WBC 6.5, hemoglobin 7.3, sodium 128, creatinine 0.48, magnesium 2 Imaging: No new imaging Assessment and Plan: Patient is severely ill, needs close monitoring. Acute upper GI bleed - On IV Protonix 40 twice daily - General surgery planning for EGD today - Eliquis on hold -Hemoglobin currently stable - Repeat CBC tomorrow Aortic valve endocarditis MSSA bacteremia Sepsis, resolved Persistent hyponatremia, now euvolemic High anion gap metabolic acidosis, resolved Lactic acidosis, resolved NSTEMI, likely type II Systolic cardiomyopathy Paroxysmal atrial fibrillation with RVR status post cardioversion Hyperbilirubinemia, resolved Thrombocytopenia, likely in the setting of sepsis, resolved Acute metabolic encephalopathy, resolved -Repeat blood cultures no growth to date, continue on nafcillin 2 g IV every 4 hours, discussed management with ID, will likely need PICC line with long-term antibiotics -Cardiothoracic surgery recommending no acute interventions Cardiology note reviewed, continue to hold Eliquis, continue metoprolol 50 3 times daily, amiodarone 200 twice daily, continue aspirin 81 mg, atorvastatin 40 mg -Nephrology note reviewed, on sodium chloride tab 1 g decreased to daily, sodium bicarb 650 twice daily, on fluid restriction, started on Lasix 20 twice daily, monitor electrolytes and renal function - Continue aspirin 81 mg, atorvastatin 40 mg History of alcohol dependence - Thiamine 100 mg daily Chronic back pain - On oxy 10 3 times daily, morphine 2 IV every 6 hours as needed, monitor for sedation DVT ppx: SCDs Code status: Full code Anticipated discharge place: Home with home care Anticipated discharge time: Pending clinical course Objective - Vital Signs Vital signs: Vital Signs Temp 97.6 F 06/01/23 08:37 Pulse 65 06/01/23 08:37 Resp 16 06/01/23 08:37 BP 128/68 06/01/23 08:37 Pulse Ox 100 06/01/23 08:37 FiO2 Intake & Output 05/31/23 06/01/23 06/01/23 18:59 06:59 18:59 Intake Total 20 10 10 Output Total 1425 Balance -1405 10 10 Intake: IV 20 10 10 Invasive Line 5 20 10 10 Oral 0 Output: Urine 1425 Other: Voiding Method Indwelling Catheter Indwelling Catheter Indwelling Catheter # Bowel Movements 1 2 - Labs CBC & Chem 7: 06/01/23 07:28 06/01/23 12:55 Labs: Abnormal Lab Results - Last 24 Hours (Table) 05/31/23 05/31/23 06/01/23 Range/Units 16:45 16:45 07:28 RBC 2.01 L 2.05 L (4.30-5.90) m/uL Hgb 7.4 L 7.3 L (13.0-17.5) gm/dL Hct 23.2 L 23.7 L (39.0-53.0) % MCV 115.4 H 115.4 H (80.0-100.0) fL MCH 37.0 H 35.7 H (25.0-35.0) pg MCHC 30.9 L (31.0-37.0) g/dL Macrocytosis Marked A Marked A Sodium 126 L (137-145) mmol/L Creatinine (0.66-1.25) mg/dL Calcium (8.4-10.2) mg/dL 06/01/23 06/01/23 Range/Units 07:28 12:55 RBC (4.30-5.90) m/uL Hgb (13.0-17.5) gm/dL Hct (39.0-53.0) % MCV (80.0-100.0) fL MCH (25.0-35.0) pg MCHC (31.0-37.0) g/dL Macrocytosis Sodium 128 L 129 L (137-145) mmol/L Creatinine 0.48 L (0.66-1.25) mg/dL Calcium 8.0 L (8.4-10.2) mg/dL Microbiology - Last 24 Hours (Table) 05/29/23 09:16 Blood Culture - Preliminary Blood 05/28/23 10:39 Blood Culture - Preliminary Blood
--- NOTE | 2023-06-01 15:28 | P.PN ---
Subjective Progress Note Date: 06/01/23 Principal diagnosis: Reason for follow-up is MSSA bacteremia and possible discitis Patient is a 63-year-old male with a past medical history significant for hypertension patient apparently did have a chronic back pain for which the patient did have surgery done by Dr. Love and did have a lumbar spinal fusion, patient to present to the hospital with weakness confusion and debility he did have a fever and noticed to have positive blood culture with MSSA. Patient did have a VINCE completed on 05/28/2023 reported as 4 mm vegetation on the aortic valve. On today's evaluation that is 06/01/2023, the patient continues to be afebrile, the patient is on room air and breathing comfortably, the Pt denies having any chest pain or cough, the patient denies having any abdominal pain no vomiting, currently waiting for his colonoscopy scheduled for this afternoon. Patient white count is 6.5, creatinine 0.48 blood cultures 05/28/2023 as well as 05/29/2023 has been negative Objective - Vital Signs Vital signs: Vital Signs Temp 97.6 F 06/01/23 08:37 Pulse 65 06/01/23 08:37 Resp 16 06/01/23 08:37 BP 128/68 06/01/23 08:37 Pulse Ox 100 06/01/23 08:37 FiO2 Intake & Output 05/31/23 06/01/23 06/01/23 18:59 06:59 18:59 Intake Total 20 10 10 Output Total 1425 Balance -1405 10 10 Intake: IV 20 10 10 Invasive Line 5 20 10 10 Oral 0 Output: Urine 1425 Other: Voiding Method Indwelling Catheter Indwelling Catheter Indwelling Catheter # Bowel Movements 1 2 - Exam GENERAL DESCRIPTION: Middle-age male lying in bed in no distress RESPIRATORY SYSTEM: Unlabored breathing , decreased breath sounds at bases HEART: S1 S2 regular rate and rhythm , ABDOMEN: Soft , no tenderness EXTREMITIES: No edema feet - Labs CBC & Chem 7: 06/01/23 07:28 06/01/23 12:55 Labs: Abnormal Lab Results - Last 24 Hours (Table) 05/31/23 05/31/23 06/01/23 Range/Units 16:45 16:45 07:28 RBC 2.01 L 2.05 L (4.30-5.90) m/uL Hgb 7.4 L 7.3 L (13.0-17.5) gm/dL Hct 23.2 L 23.7 L (39.0-53.0) % MCV 115.4 H 115.4 H (80.0-100.0) fL MCH 37.0 H 35.7 H (25.0-35.0) pg MCHC 30.9 L (31.0-37.0) g/dL Macrocytosis Marked A Marked A Sodium 126 L (137-145) mmol/L Creatinine (0.66-1.25) mg/dL Calcium (8.4-10.2) mg/dL 06/01/23 Range/Units 07:28 RBC (4.30-5.90) m/uL Hgb (13.0-17.5) gm/dL Hct (39.0-53.0) % MCV (80.0-100.0) fL MCH (25.0-35.0) pg MCHC (31.0-37.0) g/dL Macrocytosis Sodium 128 L (137-145) mmol/L Creatinine 0.48 L (0.66-1.25) mg/dL Calcium 8.0 L (8.4-10.2) mg/dL Microbiology - Last 24 Hours (Table) 05/29/23 09:16 Blood Culture - Preliminary Blood 05/28/23 10:39 Blood Culture - Preliminary Blood Assessment and Plan (1) MSSA bacteremia Current Visit: Yes Status: Acute Code(s): R78.81 - BACTEREMIA; B95.61 - METHICILLIN SUSCEP STAPH INFCT CAUSING DIS CLASSD [id number] SNOMED Code(s): 641557505 (2) Leukocytosis Current Visit: Yes Status: Acute Code(s): D72.829 - ELEVATED WHITE BLOOD CELL COUNT, UNSPECIFIED SNOMED Code(s): 862611457 (3) Aortic valve endocarditis Current Visit: Yes Status: Acute Code(s): I35.8 - OTHER NONRHEUMATIC AORTIC VALVE DISORDERS SNOMED Code(s): 57735836 Plan: 1patient with MSSA bacteremia in this patient who did have a history of chronic back pain with recent worsening and also have a history of extensive lumbosacral spine surgery with fusion, now with a positive blood culture with MSSA, with a high clinical probability source of this bacteremia being the lumbosacral spine however the patient did have MRI that was reported negative for infection, the patient did have a VINCE completed with a small vegetation on the aortic valve concerning for possible endocarditis 2-blood cultures 05/28/2023 as well as 05/29/2023 so far negative blood cultures if the blood culture remains to be negative by tomorrow morning we will place a PICC line for outpatient IV antibiotic therapy 3-patient currently on naficillin, to continue, he was given a dose of daptomycin on discharge and then he will be started on cefazolin 2 g every 8 hours at home to finish 6-week course of therapy Family at the bedside questions answered Dictation was produced using [employer] dictation software. please excuse any grammatical, word or spelling errors. Time with Patient: Less than 30
[2023-06-01] MEDS ORDERED: PROPOFOL 10 MG/ML 20 ML VIAL IV ONE (15:43)
[2023-06-01] MEDS ORDERED: LIDOCAINE 1% INJ 10MG/ML (20 ML MDV) ONE (15:43)
[2023-06-01] MEDS: IV FLUID CONTINUATION 600 ML IV ONE (15:44)
--- NOTE | 2023-06-01 15:54 | P.OP ---
Date of Procedure: 06/01/23 Preoperative Diagnosis: GI bleed Postoperative Diagnosis: antral gastritis Esophagitis Procedure(s) Performed: EGD Anesthesia: MAC Surgeon: Maik Quinn Pathology: other (antrum, esophagus) Condition: stable Disposition: PACU Description of Procedure: the patient's placed on the endoscopy table in the lateral position. He received IV sedation. The gastroscope placed oropharynx passed in the esophagus and stomach. Scope was placed through the pylorus. The first and second portion duodenum appeared normal. Scope summer back the antrum and this appeared mildly inflamed. A biopsies performed. Scope was unretroflexed and remainder the stomach appeared normal. The GE junction was at 39 cm. The distal esophagus was mildly inflamed a biopsies performed. The proximal esophagus appeared normal. Scope withdrawn for patient.
[2023-06-01] MEDS: FUROSEMIDE 10 MG/ML 2 ML VIAL IV SCH (22:16)
[2023-06-02] MEDS: SODIUM CHLORIDE TAB 1 GM TAB PO SCH (08:19)
[2023-06-02 11:24] LABS: BUN/Creat Ratio 18.83 Ratio (12.00-20.00); Blood Urea Nitrogen 11.3 mg/dL (9.0-27.0); Calcium 8.2 mg/dL (8.7-10.3); Carbon Dioxide 24.4 mmol/L (21.6-31.8); Chloride 96 mmol/L (96-109); Glucose 99 mg/dL (70-110); Magnesium 1.9 mg/dL (1.5-2.4); Potassium 3.3 mmol/L (3.5-5.5); Sodium 132 mmol/L (135-145)
--- NOTE | 2023-06-02 11:32 | P.OP ---
Date of Procedure: 06/02/23 Description of Procedure: Date of Procedure: 06/02/2023 Preoperative Diagnosis: Need for long-term IV antibiotic access. Postoperative Diagnosis: Same. Procedure(s) Performed: Ultrasound-guided cannulation left basilic vein. Insertion of peripherally inserted central catheter under fluoroscopic guidance. Anesthesia: local (1% Xylocaine.) Surgeon: Jeff Estimated Blood Loss (ml): 5 IV fluids (ml): 0 Urine output (ml): 0 Pathology: none sent Condition: stable Disposition: no change Indications for Procedure: Patient is a 63 year old male. patient will require long-term IV antibiotics as an outpatient patient is offered a PICC line to allow for intravenous administration of antibiotics. Description of Procedure: Patient was brought to the special procedure suite. The left upper extremity sterilely prepped and draped in usual manner. Ultrasound was utilized to identify the basilic vein which was normally compressible free of visible thrombus. Permenant image was stored. 1% Xylocaine was utilized for local anesthesia tissues overlying the vein. Through this anesthetized area and with the aid of ultrasound a micropuncture needle was utilized to cannulate the vein. Once cannulated, Softip guidewire was advanced into the vein. The needle was withdrawn and a micropuncture sheath and dilator advanced over the guidewire. The guidewire was withdrawn and exchanged for the PICC guidewire and measured 48 cm to the cavoatrial junction. The catheter was cut to size and advanced into the cavoatrial junction without resistance. The sheath was peeled away. Blood was easily withdrawn through the catheter and the catheter was then flushed with heparinized saline solution and secured to the skin. Patient tolerated procedure well and was returned to their room in satisfactory and stable condition.
[2023-06-02] MEDS: FUROSEMIDE 10 MG/ML 4 ML VIAL IV STA (12:19)
--- NOTE | 2023-06-02 12:20 | IR ---
EXAMINATION TYPE: IR cvc insert >=5 years Intraoperative/procedural fluoroscopic services were provid ed. CLINICAL INDICATION:Male, 63 years old with history of Abx, 0.7m/1.3086DAP, 4F 48cm lt basilic PICC; , [facility] Total fluoroscopy time is 0.7 min. DAP: 130.86 uGym2 Please see the operative/procedural note for further details.
[2023-06-02 12:39] LABS: HCT 21.1 % (39.6-50.0); HGB 6.5 g/dL (13.0-17.0); MCH 34.8 pg (27.0-32.0); MCHC 30.8 g/dL (32.0-37.0); MCV 112.8 FL (80.0-97.0); Mean Platelet Volume 11.8 FL (9.5-12.2); NRBC Per 100 WBC 0 X 10*3/uL (0.00-0.01); Platelet Count 214 X 10*3/uL (140-440); RBC 1.87 X 10*6/uL (4.40-5.60); RDW 13.2 % (11.5-14.5); WBC 5.24 X 10*3/uL (4.50-10.00)
[2023-06-02 12:40] LABS: Basophils # (A) 0.04 X 10*3/uL (0.00-0.10); Basophils % (A) 0.8 %; Eosinophils # (A) 0.03 X 10*3/uL (0.04-0.35); Eosinophils % (A) 0.6 %; Lymphocytes # (A) 1.41 X 10*3/uL (0.90-5.00); Lymphocytes % (A) 26.9 %; Macrocytosis (M) 2+; Monocytes % (A) 13.4 %; Neutrophils # (A) 3.01 X 10*3/uL (1.80-7.70); Neutrophils % (A) 57.3 %
--- NOTE | 2023-06-02 13:39 | P.PN ---
Subjective Progress Note Date: 06/02/23 HISTORY OF PRESENT ILLNESS: Patient has been transferred to the [facility] floor. Dion has been on hold for endoscopy. Yesterday, patient underwent EGD that revealed antral gastritis. He also had a PICC line placed for outpatient IV antibiotics. Telemetry is a sinus rhythm. He denies having any chest pain or pressure. No shortness of breath. He is expecting to go home later today. PHYSICAL EXAM: VITAL SIGNS: Reviewed. GENERAL: Well-developed in no acute distress. NECK: Supple. No JVD or thyromegaly LUNGS: Respirations even and unlabored. Lungs essentially clear to auscultation bilaterally. HEART: Regular rate and rhythm. S1 and S2 heard. EXTREMITIES: Normal range of motion. No clubbing or cyanosis. Peripheral pulses intact. No lower extremity edema ASSESSMENT: New onset paroxysmal atrial fibrillation, status post VINCE cardioversion Elevated troponin, likely type II [place] Anemia status post EGD, antral gastritis Sepsis with MSSA bacteremia Possible aortic valve endocarditis, VINCE noted small area of vegetation on aortic valve Hyponatremia History of multiple back surgeries PLAN: Eliquis on hold for GI bleed resume per recommendations of general surgery Continue additional cardiac medications No further cardiac workup at this time. Following discharge, patient will follow-up with Dr. JOSEPH Cameron in 1 to 2 weeks. Nurse practitioner note has been reviewed by physician. Signing provider agrees with the documented findings, assessment, and plan of care documented by WINE CELLAR STOCK CLERK as a scribe. Objective - Vital Signs Vital signs: Vital Signs Temp 97.8 F 06/02/23 07:12 Pulse 60 06/02/23 07:12 Resp 18 06/02/23 07:12 BP 117/62 06/02/23 07:12 Pulse Ox 100 06/02/23 07:12 FiO2 Intake & Output 06/01/23 06/02/23 06/02/23 18:59 06:59 18:59 Intake Total 110 Output Total 1625 Balance 110 -1625 Intake: IV 110 Invasive Line 5 10 Output: Urine 1625 Other: Voiding Method Indwelling Catheter Indwelling Catheter # Bowel Movements 1 - Labs CBC & Chem 7: 06/02/23 06:01 06/02/23 06:01 Labs: Abnormal Lab Results - Last 24 Hours (Table) 06/01/23 Range/Units 12:55 Sodium 129 L (137-145) mmol/L Microbiology - Last 24 Hours (Table) 05/29/23 09:16 Blood Culture - Preliminary Blood 05/31/23 08:05 Blood Culture - Preliminary Blood
[2023-06-02] MEDS: DAPTOmycin 500 MG in SODIUM CHLORIDE 0.9% 50 ML IVPB SCH (13:50)
--- NOTE | 2023-06-02 15:04 | P.PN ---
Subjective Progress Note Date: 06/02/23 Principal diagnosis: Reason for follow-up is MSSA bacteremia and possible discitis Patient is a 63-year-old male with a past medical history significant for hypertension patient apparently did have a chronic back pain for which the patient did have surgery done by Dr. Love and did have a lumbar spinal fusion, patient to present to the hospital with weakness confusion and debility he did have a fever and noticed to have positive blood culture with MSSA. Patient did have a VINCE completed on 05/28/2023 reported as 4 mm vegetation on the aortic valve. On today's evaluation that is 06/02/2023, Patient is afebrile patient is currently on room air and denies having any shortness of breath, the patient denies any chest pain or cough, the patient denies any nausea vomiting did not have any abdominal pain and no diarrhea, feeling better wants to go home. Patient white count is 5.24 hemoglobin is 6.5 creatinine 0.6 blood culture repeat has been negative patient did get a PICC line Objective - Vital Signs Vital signs: Vital Signs Temp 97.8 F 06/02/23 07:12 Pulse 60 06/02/23 07:12 Resp 18 06/02/23 07:12 BP 117/62 06/02/23 07:12 Pulse Ox 100 06/02/23 07:12 FiO2 Intake & Output 06/01/23 06/02/23 06/02/23 18:59 06:59 18:59 Intake Total 110 Output Total 1625 600 Balance 110 -1625 -600 Intake: IV 110 Invasive Line 5 10 Output: Urine 1625 600 Other: Voiding Method Indwelling Catheter Indwelling Catheter Indwelling Catheter # Bowel Movements 1 - Exam GENERAL DESCRIPTION: Middle-age male lying in bed in no distress RESPIRATORY SYSTEM: Unlabored breathing , decreased breath sounds at bases HEART: S1 S2 regular rate and rhythm , ABDOMEN: Soft , no tenderness EXTREMITIES: No edema feet - Labs CBC & Chem 7: 06/02/23 06:01 06/02/23 06:01 Labs: Abnormal Lab Results - Last 24 Hours (Table) 06/01/23 06/02/23 Range/Units 12:55 06:01 Sodium 129 L 132 L (137-145) mmol/L Potassium 3.3 L (3.5-5.5) mmol/L Calcium 8.2 L (8.7-10.3) mg/dL Microbiology - Last 24 Hours (Table) 05/29/23 09:16 Blood Culture - Preliminary Blood 05/31/23 08:05 Blood Culture - Preliminary Blood Assessment and Plan (1) MSSA bacteremia Current Visit: Yes Status: Acute Code(s): R78.81 - BACTEREMIA; B95.61 - METHICILLIN SUSCEP STAPH INFCT CAUSING DIS CLASSD [id number] SNOMED Code(s): 275512161 (2) Leukocytosis Current Visit: Yes Status: Acute Code(s): D72.829 - ELEVATED WHITE BLOOD CELL COUNT, UNSPECIFIED SNOMED Code(s): 739274108 (3) Aortic valve endocarditis Current Visit: Yes Status: Acute Code(s): I35.8 - OTHER NONRHEUMATIC AORTIC VALVE DISORDERS SNOMED Code(s): 56932444 Plan: 1patient with MSSA bacteremia in this patient who did have a history of chronic back pain with recent worsening and also have a history of extensive lumbosacral spine surgery with fusion, now with a positive blood culture with MSSA, with a high clinical probability source of this bacteremia being the lumbosacral spine however the patient did have MRI that was reported negative for infection, the patient did have a VINCE completed with a small vegetation on the aortic valve concerning for possible endocarditis 2-blood cultures 05/28/2023 as well as 05/29/2023 so far negative blood cultures if the blood culture remains to be negative, patient did receive the PICC line on 06/02/2023 3-patient did have drop in his hemoglobin discharge has been put on hold for further workup antibiotic switched to cefazolin and will monitor clinical course closely while inpatient Dictation was produced using [employer] dictation software. please excuse any grammatical, word or spelling errors. Time with Patient: Less than 30
[2023-06-02] MEDS: POTASSIUM CHLORIDE ER 20 MEQ TAB.ER PO STA (15:57)
--- NOTE | 2023-06-02 16:03 | P.PN ---
Subjective Progress Note Date: 06/02/23 (delayed charting seen at 0930) Patient is a 63-year-old male with hypertension, anxiety, and nicotine dependency who preesented with confusion and dehydration. In the emergency department vitals were remarkable for pulse 110 and blood pressure 87/66,. Laboratory analysis was remarkable for WBC 15.6, platelet 112, INR 1.2, sodium 123, bicarb 16, anion gap 14, lactate 3.3, total bili 1.5, and troponin 2.37. EKG shows supraventricular tachycardia, likely sinus, right bundle branch block. Chest x-ray demonstrated underinflated, opacity near the right hilum. He was subsequently admitted for for severe dehydration, NSTEMI and sepsis likely secondary to pneumonia. Patient is also found to have MSSA bacteremic and ID was subsequently consulted. Echocardiogram was notable for ejection fraction 45 to 50% and no evidence of vegetations. Nephrology also consulted due to hyponatremia which was ultimately found to be secondary to low solute intake.he underwent MRI lumbar spine did not show any infectious process. VINCE was consistent with endocarditis as a small vegetation was noted on the left coronary cusp of aortic valve measuring 4 mm, mild aortic regurgitation, moderately reduced LV systolic function at 40%. His initial abdominal ultrasound showed hepatomegaly with positive Ortega's's sign but no gallstones. He underwent a follow-up hepatobiliary scan which did show diminished ejection fraction of 29% consistent with biliary hypokinesis. Patient was persistently bacteremic despite being on cefazolin. Switch to nafcillin. Patient was also in A-fib, underwent successful cardioversion. Infectious disease recommended 4 to 6 weeks of IV antibiotics. Patient also developed an episode of melena and was noted to have decreasing hemoglobin. He was seen by surgery and ultimately underwent an EGD which showed evidence of gastritis. On the morning of 06/02/2023 despite normal EGD his hemoglobin was down to 6.5. Patient seen and examined at bedside. He complains of worsening lower extremity edema, wanting to go home, and some lightheadedness. He denies any chest pain or shortness of breath. Vital signs reviewed General: Nontoxic, no distress, appears at stated age Cardiovascular: S1S2 reg, no murmur Lungs: Decreased breath sounds bilaterally, no rhonchi, no rales, no accessory muscle use Abdominal: Soft, tender to palpation diffusely, no guarding Ext: No gross muscle atrophy, 3+ edema b/l lower extremities, no contractures Neuro: CN II-XI grossly intact, no focal neuro deficits Psych: Alert, oriented, appropriate affect Assessment/Plan: Aortic valve endocarditis MSSA bacteremia Sepsis, resolved Pneumonia - ID recs: Cefazolin for 4 weeks on discharge dapto X 1 to bridge till Abx can start at home - blood cultures are now clear - PICC line today Anemia with melena, possible acute blood loss versus hemolysis -EGD with gastritis but no overt signs of bleeding -Transfuse 1 unit of packed red blood cells -Assess for hemolysis with LDH, haptoglobin, fibrinogen, and D-dimer. Check iron studies with ferritin and iron profile -Repeat CBC in a.m.-continue to hold Eliquis NSTEMI, likely type II Systolic cardiomyopathy, EF 40% Paroxysmal atrial fibrillation with RVR status post cardioversion - cardio recs reviewed: eliquis on hold, continue current medications -Aspirin 81 mg daily, Lipitor 40 mg at night, Lasix 40 mg IV every 12 hours, Cozaar 25 mg daily, metoprolol 50 mg 3 times daily -Monitor fluid status closely Hyponatremia -Improved -Initially was likely due to poor solute intake. Now likely has component of fluid overload -Nephrology note reviewed from yesterday: Increase sodium chloride tablets, repeat Lasix -Patient with continued significant lower extremity edema, increase Lasix to 40 mg IV every 12 hours -Sodium bicarb 650 mg twice daily, sodium chloride tablet 1 mg daily -Repeat sodium level in a.m. History of alcohol dependence - Thiamine 100 mg daily Chronic back pain - On oxy 10 3 times daily, morphine 2 IV every 6 hours as needed, monitor for sedation Hyperbilirubinemia, resolved Thrombocytopenia, likely in the setting of sepsis, resolved Acute metabolic encephalopathy, resolved High anion gap metabolic acidosis, resolved Lactic acidosis, resolved Imaging: None new Data Review: Labs reviewed from today include CBC and basic metabolic profile which are remarkable for hemoglobin 6.5 and potassium 3.3 DVT prophylaxis: SCDs Anticipated discharge date: in 24- [address]: home with home health This dictation was prepared using [employer] voice recognition software. Though every attempt is made to correct errors during dictation some may still exist. Objective - Vital Signs Vital signs: Vital Signs Temp 97.8 F 06/02/23 07:12 Pulse 60 06/02/23 07:12 Resp 18 06/02/23 07:12 BP 117/62 06/02/23 07:12 Pulse Ox 100 06/02/23 07:12 FiO2 Intake & Output 06/01/23 06/02/23 06/02/23 18:59 06:59 18:59 Intake Total 110 Output Total 1625 1210 Balance 110 -1625 -1210 Intake: IV 110 Invasive Line 5 10 Output: Urine 1625 1210 Other: Voiding Method Indwelling Catheter Indwelling Catheter Urinal # Bowel Movements 1 - Labs CBC & Chem 7: 06/02/23 06:01 06/02/23 06:01 Labs: Abnormal Lab Results - Last 24 Hours (Table) 06/02/23 06/02/23 06/02/23 Range/Units 06:01 06:01 13:35 RBC 1.87 L (4.40-5.60) X 10*6/uL Hgb 6.5 A* (13.0-17.0) g/dL Hct 21.1 L (39.6-50.0) % MCV 112.8 H (80.0-97.0) FL MCH 34.8 H (27.0-32.0) pg MCHC 30.8 L (32.0-37.0) g/dL Immature Gran # 0.05 H (0.00-0.04) X 10*3/uL Eosinophils # 0.03 L (0.04-0.35) X 10*3/uL Macrocytosis (manual) 2+ A Sodium 132 L (135-145) mmol/L Potassium 3.3 L (3.5-5.5) mmol/L Calcium 8.2 L (8.7-10.3) mg/dL Crossmatch See Detail Microbiology - Last 24 Hours (Table) 05/29/23 09:16 Blood Culture - Preliminary Blood 05/31/23 08:05 Blood Culture - Preliminary Blood
--- NOTE | 2023-06-02 16:22 | P.PN ---
Subjective Progress Note Date: 06/02/23 CHIEF COMPLAINT: GI bleed HISTORY OF PRESENT ILLNESS: Patient with black stools. Status post EGD showing antral gastritis and esophagitis. Patient continues to have multiple black stools. Patient reports colonoscopy was about 3 weeks ago with normal findings. Hemoglobin 6.5. Patient receiving a unit of blood. Patient did complain of gas pains. PHYSICAL EXAM: VITAL SIGNS: Reviewed. GENERAL: Well-developed in no acute distress. HEENT: No sclera icterus. Extraocular movements grossly intact. Moist buccal mucosa. Head is atraumatic, normocephalic. ABDOMEN: Soft. Nondistended. Nontender. NEUROLOGIC: Alert and oriented. Cranial nerves II through XII grossly intact. ASSESSMENT: 1. Acute GI bleed with black stools status post EGD with antral gastritis and esophagitis PLAN: -Small bowel capsule endoscopy ordered for further evaluation of black stools -Agree with blood transfusion -Continue to monitor hemoglobin -Continue to monitor for any signs or symptoms of bleeding -Continue IV Protonix BID Physician Ostomy Care Nurse note has been reviewed by physician. Signing provider agrees with the documented findings, assessment, and plan of care. Objective - Vital Signs Vital signs: Vital Signs Temp 97.8 F 06/02/23 07:12 Pulse 60 06/02/23 07:12 Resp 18 06/02/23 07:12 BP 117/62 06/02/23 07:12 Pulse Ox 100 06/02/23 07:12 FiO2 Intake & Output 06/01/23 06/02/23 06/02/23 18:59 06:59 18:59 Intake Total 110 Output Total 1625 1210 Balance 110 -1625 -1210 Intake: IV 110 Invasive Line 5 10 Output: Urine 1625 1210 Other: Voiding Method Indwelling Catheter Indwelling Catheter Indwelling Catheter # Bowel Movements 1 - Labs CBC & Chem 7: 06/02/23 06:01 06/02/23 06:01 Labs: Abnormal Lab Results - Last 24 Hours (Table) 06/01/23 06/02/23 06/02/23 Range/Units 12:55 06:01 06:01 RBC 1.87 L (4.40-5.60) X 10*6/uL Hgb 6.5 A* (13.0-17.0) g/dL Hct 21.1 L (39.6-50.0) % MCV 112.8 H (80.0-97.0) FL MCH 34.8 H (27.0-32.0) pg MCHC 30.8 L (32.0-37.0) g/dL Immature Gran # 0.05 H (0.00-0.04) X 10*3/uL Eosinophils # 0.03 L (0.04-0.35) X 10*3/uL Macrocytosis (manual) 2+ A Sodium 129 L 132 L (137-145) mmol/L Potassium 3.3 L (3.5-5.5) mmol/L Calcium 8.2 L (8.7-10.3) mg/dL Microbiology - Last 24 Hours (Table) 05/29/23 09:16 Blood Culture - Preliminary Blood 05/31/23 08:05 Blood Culture - Preliminary Blood
--- NOTE | 2023-06-02 17:52 | XR ---
EXAMINATION TYPE: XR chest 1V DATE OF EXAM: 06/02/2023 HISTORY: Shortness of breath. COMPARISON: 05/24/2023 TECHNIQUE: Single view of the chest is submitted. FINDINGS: Demonstrated are scattered senescent parenchymal change. There is no evidence for focal infiltrate. The heart is stable. Hilar and mediastinal structures are within normal limits. Degenerative changes are seen of the dorsal spine. IMPRESSION: 1. Chronic changes without evidence for acute pulmonary disease.
[2023-06-02] MEDS: MAGNESIUM CITRATE 296 ML BOTTLE PO ONE (19:57)
[2023-06-02] MEDS: FUROSEMIDE 10 MG/ML 4 ML VIAL IV SCH (21:28)
[2023-06-03 00:36] LABS: % Iron Saturation 8.15 (15.00-50.00)
[2023-06-03 06:34] LABS: HCT 28.2 % (39.0-53.0); Hypochromasia Slight; MCH 34.5 pg (25.0-35.0); MCHC 31.4 g/dL (31.0-37.0); Macrocytosis Marked; Mean Platelet Volume 9.9; Platelet Count 297 k/uL (150-450); Poikilocytosis Slight; RBC 2.56 m/uL (4.30-5.90); RDW 15.4 % (11.5-15.5)
[2023-06-03 06:36] LABS: HGB 8.8 gm/dL (13.0-17.5)
[2023-06-03 06:48] LABS: African American GFR (CKD) >90 (>60 ml/min/1.73 sqM); Anion Gap 8 mmol/L; Blood Urea Nitrogen 8 mg/dL (9-20); Calcium 8.3 mg/dL (8.4-10.2); Carbon Dioxide 22 mmol/L (22-30); Chloride 100 mmol/L (98-107); Glucose 92 mg/dL (74-99); Non-African American GFR(CKD) >90 (>60 ml/min/1.73 sqM); Potassium 3.2 mmol/L (3.5-5.1); Sodium 130 mmol/L (137-145)
[2023-06-03] MEDS: SIMETHICONE 40 MG/0.6 ML DROPS 2,000 MG/30 ML BOTTLE PO ONE (07:40)
[2023-06-03 08:33] VITALS: BP 137/59; PULSE 64; RESP 19; TEMP 98
[2023-06-03] MEDS: POTASSIUM CHLORIDE ER 20 MEQ TAB.ER PO STA (09:34)
--- NOTE | 2023-06-03 09:41 | P.PN ---
Subjective Progress Note Date: 06/03/23 HISTORY OF PRESENT ILLNESS: Patient has been transferred to the [facility] floor. Dion has been on hold for endoscopy. Yesterday, patient underwent EGD that revealed antral gastritis. He also had a PICC line placed for outpatient IV antibiotics. Telemetry is a sinus rhythm. He denies having any chest pain or pressure. No shortness of breath. He is expecting to go home later today. 06/02 Patient had hemoglobin yesterday of 6.5 and transfused 1 unit packed RBCs with repeat hemoglobin 8.8. Blood pressure 137/59, heart rate 64, pulse ox 97% on room air. Telemetry sinus rhythm. Roxannaquis remains on hold. Patient denies having any chest pain or palpitations. He is anticipating discharge home today PHYSICAL EXAM: VITAL SIGNS: Reviewed. GENERAL: Well-developed in no acute distress. NECK: Supple. No JVD or thyromegaly LUNGS: Respirations even and unlabored. Lungs essentially clear to auscultation bilaterally. HEART: Regular rate and rhythm. S1 and S2 heard. EXTREMITIES: Normal range of motion. No clubbing or cyanosis. Peripheral pulses intact. No lower extremity edema ASSESSMENT: New onset paroxysmal atrial fibrillation, status post VINCE cardioversion Elevated troponin, likely type II HI Anemia status post EGD, antral gastritis Sepsis with MSSA bacteremia Possible aortic valve endocarditis, VINCE noted small area of vegetation on aortic valve Hyponatremia History of multiple back surgeries PLAN: Roxannaqucarolyn on hold for GI bleed resume per recommendations of general surgery Continue additional cardiac medications No further cardiac workup at this time. Following discharge, patient will follow-up with Dr. JOSEPH Cameron in 1 to 2 weeks. Nurse practitioner note has been reviewed by physician. Signing provider agrees with the documented findings, assessment, and plan of care documented by TECHNICAL SPECIALIST as a scribe. Objective - Vital Signs Vital signs: Vital Signs Temp 98.0 F 06/03/23 07:22 Pulse 64 06/03/23 07:22 Resp 19 06/03/23 07:22 BP 137/59 06/03/23 07:22 Pulse Ox 97 06/03/23 07:22 FiO2 Intake & Output 06/02/23 06/03/23 06/03/23 18:59 06:59 18:59 Intake Total 0 310 Output Total 1210 600 Balance -1210 -290 Intake: Blood Product 0 310 Rc As-1 Unit 0 310 [id number] Output: Urine 1210 600 Other: Voiding Method Urinal Toilet Urinal # Voids 1 # Bowel Movements 1 - Labs CBC & Chem 7: 06/03/23 05:54 06/03/23 05:54 Labs: Abnormal Lab Results - Last 24 Hours (Table) 06/02/23 06/02/23 06/02/23 Range/Units 06:01 06:01 13:35 RBC 1.87 L (4.40-5.60) X 10*6/uL Hgb 6.5 A* (13.0-17.0) g/dL Hct 21.1 L (39.6-50.0) % MCV 112.8 H (80.0-97.0) FL MCH 34.8 H (27.0-32.0) pg MCHC 30.8 L (32.0-37.0) g/dL Immature Gran # 0.05 H (0.00-0.04) X 10*3/uL Eosinophils # 0.03 L (0.04-0.35) X 10*3/uL Macrocytosis Macrocytosis (manual) 2+ A Haptoglobin (31.2-198.0) mg/dL Fibrinogen (200-500) mg/dL D-Dimer (<0.60) mg/L FEU Sodium 132 L (135-145) mmol/L Potassium 3.3 L (3.5-5.5) mmol/L BUN (9-20) mg/dL Creatinine (0.66-1.25) mg/dL Calcium 8.2 L (8.7-10.3) mg/dL Iron (65-175) UG/DL % Saturation (15.00-50.00) Crossmatch See Detail 06/02/23 06/02/23 06/02/23 Range/Units 13:35 16:08 16:08 RBC (4.40-5.60) X 10*6/uL Hgb (13.0-17.0) g/dL Hct (39.6-50.0) % MCV (80.0-97.0) FL MCH (27.0-32.0) pg MCHC (32.0-37.0) g/dL Immature Gran # (0.00-0.04) X 10*3/uL Eosinophils # (0.04-0.35) X 10*3/uL Macrocytosis Macrocytosis (manual) Haptoglobin 214.0 H (31.2-198.0) mg/dL Fibrinogen 539 H (200-500) mg/dL D-Dimer 1.69 H (<0.60) mg/L FEU Sodium (135-145) mmol/L Potassium (3.5-5.5) mmol/L BUN (9-20) mg/dL Creatinine (0.66-1.25) mg/dL Calcium (8.7-10.3) mg/dL Iron 26 L (65-175) UG/DL % Saturation 8.15 L (15.00-50.00) Crossmatch 06/03/23 06/03/23 Range/Units 05:54 05:54 RBC 2.56 L (4.40-5.60) X 10*6/uL Hgb 8.8 L D (13.0-17.0) g/dL Hct 28.2 L (39.6-50.0) % MCV 110.0 H D (80.0-97.0) FL MCH (27.0-32.0) pg MCHC (32.0-37.0) g/dL Immature Gran # (0.00-0.04) X 10*3/uL Eosinophils # (0.04-0.35) X 10*3/uL Macrocytosis Marked A Macrocytosis (manual) Haptoglobin (31.2-198.0) mg/dL Fibrinogen (200-500) mg/dL D-Dimer (<0.60) mg/L FEU Sodium 130 L (135-145) mmol/L Potassium 3.2 L (3.5-5.5) mmol/L BUN 8 L (9-20) mg/dL Creatinine 0.54 L (0.66-1.25) mg/dL Calcium 8.3 L (8.7-10.3) mg/dL Iron (65-175) UG/DL % Saturation (15.00-50.00) Crossmatch Microbiology - Last 24 Hours (Table) 05/31/23 08:05 Blood Culture - Preliminary Blood 05/28/23 10:39 Blood Culture - Final Blood
[2023-06-03 11:17] VITALS: BMI 32.1
[2023-06-03] MEDS: DAPTOmycin 500 MG in SODIUM CHLORIDE 0.9% 50 ML IVPB SCH (11:59)
--- NOTE | 2023-06-03 12:31 | P.PN ---
Subjective patient is seen for follow-up for hyponatremia. edema has improvedwith diuresis. Sodium increased to 132 yesterday and is at 130 today. patient wants to go home. Tolerating oral intake. Objective - Vital Signs Vital signs: Vital Signs Temp 98.0 F 06/03/23 07:22 Pulse 64 06/03/23 08:00 Resp 19 06/03/23 08:00 BP 137/59 06/03/23 07:22 Pulse Ox 97 06/03/23 07:22 FiO2 Intake & Output 06/02/23 06/03/23 06/03/23 18:59 06:59 18:59 Intake Total 0 310 Output Total 1210 600 430 Balance -1210 -290 -430 Weight 98.5 kg Intake: Blood Product 0 310 Rc As-1 Unit 0 310 [id number] Output: Urine 1210 600 430 Other: Voiding Method Urinal Toilet Toilet Urinal Urinal # Voids 1 # Bowel Movements 1 - Exam patient is awake, comfortable, no acute distress Examination of the heart S1 and S2 Examination of the lungs bilateral breath sounds are heard Abdomen is soft nontender Examination of lower extremities shows 1+ edema ORTHODONTIC TREATMENT COORDINATOR exam grossly intact - Labs CBC & Chem 7: 06/03/23 05:54 06/03/23 05:54 Labs: Abnormal Lab Results - Last 24 Hours (Table) 06/02/23 06/02/23 06/02/23 Range/Units 06:01 13:35 13:35 RBC 1.87 L (4.40-5.60) X 10*6/uL Hgb 6.5 A* (13.0-17.0) g/dL Hct 21.1 L (39.6-50.0) % MCV 112.8 H (80.0-97.0) FL MCH 34.8 H (27.0-32.0) pg MCHC 30.8 L (32.0-37.0) g/dL Immature Gran # 0.05 H (0.00-0.04) X 10*3/uL Eosinophils # 0.03 L (0.04-0.35) X 10*3/uL Macrocytosis Macrocytosis (manual) 2+ A Haptoglobin (31.2-198.0) mg/dL Fibrinogen (200-500) mg/dL D-Dimer (<0.60) mg/L FEU Sodium (137-145) mmol/L Potassium (3.5-5.1) mmol/L BUN (9-20) mg/dL Creatinine (0.66-1.25) mg/dL Calcium (8.4-10.2) mg/dL Iron 26 L (65-175) UG/DL % Saturation 8.15 L (15.00-50.00) Crossmatch See Detail 06/02/23 06/02/23 06/03/23 Range/Units 16:08 16:08 05:54 RBC 2.56 L (4.40-5.60) X 10*6/uL Hgb 8.8 L D (13.0-17.0) g/dL Hct 28.2 L (39.6-50.0) % MCV 110.0 H D (80.0-97.0) FL MCH (27.0-32.0) pg MCHC (32.0-37.0) g/dL Immature Gran # (0.00-0.04) X 10*3/uL Eosinophils # (0.04-0.35) X 10*3/uL Macrocytosis Marked A Macrocytosis (manual) Haptoglobin 214.0 H (31.2-198.0) mg/dL Fibrinogen 539 H (200-500) mg/dL D-Dimer 1.69 H (<0.60) mg/L FEU Sodium (137-145) mmol/L Potassium (3.5-5.1) mmol/L BUN (9-20) mg/dL Creatinine (0.66-1.25) mg/dL Calcium (8.4-10.2) mg/dL Iron (65-175) UG/DL % Saturation (15.00-50.00) Crossmatch 06/03/23 Range/Units 05:54 RBC (4.40-5.60) X 10*6/uL Hgb (13.0-17.0) g/dL Hct (39.6-50.0) % MCV (80.0-97.0) FL MCH (27.0-32.0) pg MCHC (32.0-37.0) g/dL Immature Gran # (0.00-0.04) X 10*3/uL Eosinophils # (0.04-0.35) X 10*3/uL Macrocytosis Macrocytosis (manual) Haptoglobin (31.2-198.0) mg/dL Fibrinogen (200-500) mg/dL D-Dimer (<0.60) mg/L FEU Sodium 130 L (137-145) mmol/L Potassium 3.2 L (3.5-5.1) mmol/L BUN 8 L (9-20) mg/dL Creatinine 0.54 L (0.66-1.25) mg/dL Calcium 8.3 L (8.4-10.2) mg/dL Iron (65-175) UG/DL % Saturation (15.00-50.00) Crossmatch Microbiology - Last 24 Hours (Table) 05/31/23 08:05 Blood Culture - Preliminary Blood 05/28/23 10:39 Blood Culture - Final Blood Assessment and Plan Assessment: 1. Hyponatremia from poor solute intake. Urine osmolality 384. Urine sodium less than 20. TSH normal. No improvement in sodium level with normal saline. currently maintained on Lasix and sodium and chloride Was decreased 2. Staph aureus bacteremia. Concern for pneumonia. Also concern for cholecystitis - HIDA scan showed biliary hyperkinesia.. No infectious process noted on lumbar MRI. Aortic valve vegetation noted on VINCE. 3. Benign hypertension. Controlled. 4. Metabolic acidosis secondary to lactic acidosis and IV fluids. On oral bicarb. Stable. 5. A-fib with RVR s/p Cardizem drip. On Lopressor. 6. Cardiomyopathy ejection fraction of 45 to 50%. Plan: DC sodium chloride tabs Replace potassium Okay to discharge patient. He can continue with his home dose off oral Lasix at 40 mg daily. Repeat labs in 2 days and follow-up in the office in one week.
--- NOTE | 2023-06-03 14:11 | P.PN ---
Subjective Progress Note Date: 06/03/23 CHIEF COMPLAINT: GI bleed HISTORY OF PRESENT ILLNESS: Patient with black stools. Status post EGD showing antral gastritis and esophagitis. Patient reports no longer having black stools. He reports 6 brown bowel movements after the milk of mag. He is undergoing a capsule endoscopy today. He did receive a unit of blood hemoglobin has gone up from 6.5-8.8. PHYSICAL EXAM: VITAL SIGNS: Reviewed. GENERAL: Well-developed in no acute distress. HEENT: No sclera icterus. Extraocular movements grossly intact. Moist buccal mucosa. Head is atraumatic, normocephalic. ABDOMEN: Soft. Nondistended. Nontender. NEUROLOGIC: Alert and oriented. Cranial nerves II through XII grossly intact. ASSESSMENT: 1. Acute GI bleed with black stools status post EGD with antral gastritis and esophagitis PLAN: -Patient can be discharged from surgical standpoint when medically cleared -Continue Protonix at discharge -Patient to follow-up with GI service for capsule endoscopy results Physician Colorer note has been reviewed by physician. Signing provider agrees with the documented findings, assessment, and plan of care. Objective - Vital Signs Vital signs: Vital Signs Temp 98.0 F 06/03/23 07:22 Pulse 64 06/03/23 08:00 Resp 19 06/03/23 08:00 BP 137/59 06/03/23 07:22 Pulse Ox 97 06/03/23 07:22 FiO2 Intake & Output 06/02/23 06/03/23 06/03/23 18:59 06:59 18:59 Intake Total 0 310 Output Total 1210 600 430 Balance -1210 -290 -430 Weight 98.5 kg Intake: Blood Product 0 310 Rc As-1 Unit 0 310 [id number] Output: Urine 1210 600 430 Other: Voiding Method Urinal Toilet Toilet Urinal Urinal # Voids 1 # Bowel Movements 1 - Labs CBC & Chem 7: 06/03/23 05:54 06/03/23 05:54 Labs: Abnormal Lab Results - Last 24 Hours (Table) 06/02/23 06/02/23 06/02/23 Range/Units 13:35 13:35 16:08 RBC (4.30-5.90) m/uL Hgb (13.0-17.5) gm/dL Hct (39.0-53.0) % MCV (80.0-100.0) fL Macrocytosis Haptoglobin (31.2-198.0) mg/dL Fibrinogen 539 H (200-500) mg/dL D-Dimer 1.69 H (<0.60) mg/L FEU Sodium (137-145) mmol/L Potassium (3.5-5.1) mmol/L BUN (9-20) mg/dL Creatinine (0.66-1.25) mg/dL Calcium (8.4-10.2) mg/dL Iron 26 L (65-175) UG/DL % Saturation 8.15 L (15.00-50.00) Crossmatch See Detail 06/02/23 06/03/23 06/03/23 Range/Units 16:08 05:54 05:54 RBC 2.56 L (4.30-5.90) m/uL Hgb 8.8 L D (13.0-17.5) gm/dL Hct 28.2 L (39.0-53.0) % MCV 110.0 H D (80.0-100.0) fL Macrocytosis Marked A Haptoglobin 214.0 H (31.2-198.0) mg/dL Fibrinogen (200-500) mg/dL D-Dimer (<0.60) mg/L FEU Sodium 130 L (137-145) mmol/L Potassium 3.2 L (3.5-5.1) mmol/L BUN 8 L (9-20) mg/dL Creatinine 0.54 L (0.66-1.25) mg/dL Calcium 8.3 L (8.4-10.2) mg/dL Iron (65-175) UG/DL % Saturation (15.00-50.00) Crossmatch Microbiology - Last 24 Hours (Table) 05/31/23 08:05 Blood Culture - Preliminary Blood 05/28/23 10:39 Blood Culture - Final Blood
--- NOTE | 2023-06-03 14:53 | P.DS ---
Providers Date of admission: 05/24/23 15:55 Expected date of discharge: 06/03/23 Attending physician: Connor Tobin MD Consults: 05/24/23 15:55 Consult Physician Routine Consulting Provider: Nicola Artis Consult Reason/Comments: NSTEMI Do you want consulting provider notified?: Already Contacted 05/25/23 07:56 Consult Physician Routine Consulting Provider: Bita Conteh Consult Reason/Comments: hyponatremia Do you want consulting provider notified?: Yes 05/25/23 08:47 Consult Physician Routine Consulting Provider: Karlee Gonzalez Consult Reason/Comments: MSSA bacteremia Do you want consulting provider notified?: Yes 05/29/23 10:44 Consult Physician Routine Consulting Provider: Kalpesh Kiran Consult Reason/Comments: aortic valve vegetation, bacteremia Do you want consulting provider notified?: Yes 05/30/23 16:00 Consult Physician Routine Consulting Provider: Alejandro Munson Consult Reason/Comments: Decrease in HGB/tarry stools/new to eliquis Do you want consulting provider notified?: Yes 06/02/23 07:36 Consult Physician Routine Consulting Provider: Maik Quinn Consult Reason/Comments: EGD Do you want consulting provider notified?: Already Contacted Primary care physician: Jonathan Suarez Hospital Course: Discharge Diagnosis: Aortic valve endocarditis- 4-6 weeks of IV cefazolin in the outpatient setting MSSA bacteremia Sepsis, resolved Pneumonia Anemia with melena, possible acute blood loss versus hemolysis NSTEMI, likely type II Systolic cardiomyopathy, EF 40% Paroxysmal atrial fibrillation with RVR status post cardioversion, not on anticoagulation due to GI bleed CHADSVASC 1 Hyponatremia History of alcohol dependence Chronic back pain Hyperbilirubinemia, resolved Thrombocytopenia, likely in the setting of sepsis, resolved Acute metabolic encephalopathy, resolved High anion gap metabolic acidosis, resolved Lactic acidosis, resolved Hospital Course: Patient is a 63-year-old male with hypertension, anxiety, and nicotine dependency who preesented with confusion and dehydration. In the emergency department vitals were remarkable for pulse 110 and blood pressure 87/66,. Laboratory analysis was remarkable for WBC 15.6, platelet 112, INR 1.2, sodium 123, bicarb 16, anion gap 14, lactate 3.3, total bili 1.5, and troponin 2.37. EKG shows supraventricular tachycardia, likely sinus, right bundle branch block. Chest x-ray demonstrated underinflated, opacity near the right hilum. He was subsequently admitted for for severe dehydration, NSTEMI and sepsis likely secondary to pneumonia. Patient is also found to have MSSA bacteremic and ID was subsequently consulted. Echocardiogram was notable for ejection fraction 45 to 50% and no evidence of vegetations. Nephrology also consulted due to hyponatremia which was ultimately found to be secondary to low solute intake.he underwent MRI lumbar spine did not show any infectious process. VINCE was consistent with endocarditis as a small vegetation was noted on the left coronary cusp of aortic valve measuring 4 mm, mild aortic regurgitation, moderately reduced LV systolic function at 40%. His initial abdominal ultrasound showed hepatomegaly with positive Ortega's's sign but no gallstones. He underwent a follow-up hepatobiliary scan which did show diminished ejection fraction of 29% consistent with biliary hypokinesis. Patient was persistently bacteremic despite being on cefazolin. Switch to nafcillin. Patient was also in A-fib, underwent successful cardioversion. Infectious disease recommended 4 to 6 weeks of IV antibiotics. Patient also developed an episode of melena and was noted to have decreasing hemoglobin. He was seen by surgery and ultimately underwent an EGD which showed evidence of gastritis. On the morning of 06/02/2023 despite normal EGD his hemoglobin was down to 6.5. He received 1 unit of pRBC and HgB went to 8.8. He did not have any additional melena and was requesting discharge home. Follow-up: repeat CBC and BMP in 3 days. PCP in 3-4 days. Follow up with GI, cardio, ID, and nephrology. Lasix 40 mg daily for the next 5 days and then can resume his as needed regiment. He will complete 4 additional weeks of cefazolin. He should be resumed on anticoagulation when cleared by GI/surgery and if his Hgb remains table. He did undergo cardioversion and ideally would be on xarelto/eliquis for 6 weeeks. New medications include aspirin 81 mg daily, Flomax 0.4 mg daily, Lipitor 40 mg daily, amiodarone 200 mg twice daily, Protonix 40 mg twice daily, sodium bicarb 650 mg twice daily. His metoprolol was increased to 50 mg 3 times daily and losartan was decreased to 25 mg daily Patient seen and examined at bedside. He has no complaints other than wanting to go home. He has not had any additional bloody bowel movements. Denies any chest pain, shortness of breath, lightheadedness, or dizziness. He is frustrated about not being able to get out of bed independently. Vital signs reviewed and stable. General: Nontoxic, no distress, appears at stated age Cardiovascular: S1S2 reg, no murmur, positive posterior tibial pulse bilateral, Lungs: CTA bilateral, no rhonchi, no rales, no accessory muscle use Abdominal: Soft, nontender to palpation, no guarding, no appreciable organomegaly Ext: No gross muscle atrophy, no edema b/l lower extremities, no contractures Neuro: CN II-XI grossly intact, no focal neuro deficits Psych: Alert, oriented, appropriate affect A total of 45 minutes of time were spent preparing this complex discharge summary. Patient was discharged on 06/03/23. This dictation was prepared using [employer] voice recognition software. Though every attempt is made to correct errors during dictation some may still exist. Patient Condition at Discharge: Stable Plan - Discharge Summary Discharge Rx Participant: No New Discharge Prescriptions: New Aspirin 81 mg PO DAILY tab Losartan [Cozaar] 25 mg PO DAILY #30 tab Tamsulosin [Flomax] 0.4 mg PO PC-BRKFST #30 cap Atorvastatin [Lipitor] 40 mg PO HS #30 tab Amiodarone [Cordarone] 200 mg PO BID #60 tab Metoprolol Tartrate [Lopressor] 50 mg PO TID #90 tab Simethicone Chew [Mylicon Chew] 40 mg PO QID tab Pantoprazole Sodium [Protonix] 40 mg PO AC-BID #60 tab Sodium Bicarbonate Tab 650 mg PO BID #60 tab Continue HYDROcodone/APAP 10-325MG [[place] 10-325] 1 tab PO Q6H PRN PRN Reason: Pain Ferrous Sulfate [Iron (65 MG Elemental)] 325 mg PO W/BRKFST allopurinoL [Zyloprim] 300 mg PO DAILY Prevagen 1 tab PO DAILY Gabapentin [Neurontin] 400 mg PO DAILY Gabapentin [Neurontin] 800 mg PO HS Montelukast [Singulair] 10 mg PO DAILY Pramipexole [Mirapex] 0.5 mg PO HS Magnesium Citrate and Oxide [Magnesium] 250 mg PO DAILY Clobetasol Propionate [Temovate 0.05% Oint] 1 applic TOPICAL BID PRN PRN Reason: flareups oxyCODONE HCL [oxyCODONE HCL (IR)] 10 mg PO TID Changed Furosemide [Lasix] 40 mg PO DAILY #5 tab Discontinued Metoprolol Succinate (ER) [Toprol Xl] 50 mg PO DAILY Potassium Chloride ER [K-Dur 10] 10 meq PO DAILY Omeprazole 20 mg PO DAILY Losartan Potassium 100 mg PO DAILY Discharge Medication List Clobetasol Propionate [Temovate 0.05% Oint] 1 applic TOPICAL BID PRN 05/24/23 [History] Ferrous Sulfate [Iron (65 MG Elemental)] 325 mg PO W/BRKFST 05/24/23 [History] Gabapentin [Neurontin] 400 mg PO DAILY 05/24/23 [History] Gabapentin [Neurontin] 800 mg PO HS 05/24/23 [History] HYDROcodone/APAP 10-325MG [[place] 10-325] 1 tab PO Q6H PRN 05/24/23 [History] Magnesium Citrate and Oxide [Magnesium] 250 mg PO DAILY 05/24/23 [History] Montelukast [Singulair] 10 mg PO DAILY 05/24/23 [History] Pramipexole [Mirapex] 0.5 mg PO HS 05/24/23 [History] Prevagen 1 tab PO DAILY 05/24/23 [History] allopurinoL [Zyloprim] 300 mg PO DAILY 05/24/23 [History] oxyCODONE HCL [oxyCODONE HCL (IR)] 10 mg PO TID 05/24/23 [History] Amiodarone [Cordarone] 200 mg PO BID #60 tab 06/03/23 [Rx] Aspirin 81 mg PO DAILY tab 06/03/23 [Rx] Atorvastatin [Lipitor] 40 mg PO HS #30 tab 06/03/23 [Rx] Furosemide [Lasix] 40 mg PO DAILY #5 tab 06/03/23 [Rx] Losartan [Cozaar] 25 mg PO DAILY #30 tab 06/03/23 [Rx] Metoprolol Tartrate [Lopressor] 50 mg PO TID #90 tab 06/03/23 [Rx] Pantoprazole Sodium [Protonix] 40 mg PO AC-BID #60 tab 06/03/23 [Rx] Simethicone Chew [Mylicon Chew] 40 mg PO QID tab 06/03/23 [Rx] Sodium Bicarbonate Tab 650 mg PO BID #60 tab 06/03/23 [Rx] Tamsulosin [Flomax] 0.4 mg PO PC-BRKFST #30 cap 06/03/23 [Rx] Follow up Appointment(s)/Referral(s): Bita Conteh MD [STAFF PHYSICIAN] - 06/09/23 9:40 am Matt Cameron MD [STAFF PHYSICIAN] - 1 Week (office will call with appointment time) Sadia Cannon MD [STAFF PHYSICIAN] - 06/10/23 1:30 pm (results of small bowel c apsule study. ) [facility] [NON-STAFF] - As Needed (*[facility] will deliver the outpatient IV antibiotics and supplies to your house this evening between 5-8pm) None,Stated [REFERRING] - 1-2 days Karlee Gonzalez MD [STAFF PHYSICIAN] - 06/15/23 2:00 pm [facility], [NON-STAFF] - 1-2 Days ([facility] will call you to schedule your in home nursing visits to begin IV antibiotic teaching. Your first visit will be tomorrow morning and [facility] will call you with the time. ) Maik Quinn MD [STAFF PHYSICIAN] - As Needed Ambulatory/Diagnostic Orders: Basic Metabolic Panel [LAB.AMB] Time Frame: 3 Days, Location: None Selected Complete Blood Count w/diff [LAB.AMB] Time Frame: 3 Days, Location: None Selected Patient Instructions/Handouts: Nonepileptic Seizures (DC), Alcohol Withdrawal (DC) Activity/Diet/Wound Care/Special Instructions: Activity: As tolerated Diet: Heart Healthy Special Instructions: If your hemoglobin remains stable you should be started back on a blood thinner (such as Xarelto or Eliquis) to reduce your risk of stroke associated with A. Fib Hemoglobin on discharge 8.[address] Suarez in 2-3 days Repeat blood work in 3 days Take your Lasix daily for the next 5 days and then your can resume your prior regiment Discharge Disposition: HOME WITH HOME HEALTH SERVICES
--- NOTE | 2023-06-03 15:35 | P.PN ---
Subjective Progress Note Date: 06/03/23 Principal diagnosis: Reason for follow-up is MSSA bacteremia and possible discitis Patient is a 63-year-old male with a past medical history significant for hypertension patient apparently did have a chronic back pain for which the patient did have surgery done by Dr. Love and did have a lumbar spinal fusion, patient to present to the hospital with weakness confusion and debility he did have a fever and noticed to have positive blood culture with MSSA. Patient did have a VINCE completed on 05/28/2023 reported as 4 mm vegetation on the aortic valve. On today's evaluation that is 06/03/2023, patient has been afebrile, patient is breathing comfortably and is currently on room air, patient denies having any significant cough no chest pain shortness of breath, patient denies nausea vomiting or diarrhea and no abdominal pain, feeling better wants to go home. Patient white count is 7.0, creatinine 0.54 blood cultures from 05/28/2023 as well as 05/29/2023 and 05/31/2023 negative Objective - Vital Signs Vital signs: Vital Signs Temp 98.0 F 06/03/23 07:22 Pulse 64 06/03/23 08:00 Resp 19 06/03/23 08:00 BP 137/59 06/03/23 07:22 Pulse Ox 97 06/03/23 07:22 FiO2 Intake & Output 06/02/23 06/03/23 06/03/23 18:59 06:59 18:59 Intake Total 0 310 Output Total 1210 600 430 Balance -1210 -290 -430 Weight 98.5 kg Intake: Blood Product 0 310 Rc As-1 Unit 0 310 [id number] Output: Urine 1210 600 430 Other: Voiding Method Urinal Toilet Toilet Urinal Urinal # Voids 1 # Bowel Movements 1 - Exam GENERAL DESCRIPTION: Middle-age male lying in bed in no distress RESPIRATORY SYSTEM: Unlabored breathing , decreased breath sounds at bases HEART: S1 S2 regular rate and rhythm , ABDOMEN: Soft , no tenderness EXTREMITIES: No edema feet - Labs CBC & Chem 7: 06/03/23 05:54 06/03/23 05:54 Labs: Abnormal Lab Results - Last 24 Hours (Table) 06/02/23 06/02/23 06/02/23 Range/Units 06:01 13:35 13:35 RBC 1.87 L (4.40-5.60) X 10*6/uL Hgb 6.5 A* (13.0-17.0) g/dL Hct 21.1 L (39.6-50.0) % MCV 112.8 H (80.0-97.0) FL MCH 34.8 H (27.0-32.0) pg MCHC 30.8 L (32.0-37.0) g/dL Immature Gran # 0.05 H (0.00-0.04) X 10*3/uL Eosinophils # 0.03 L (0.04-0.35) X 10*3/uL Macrocytosis Macrocytosis (manual) 2+ A Haptoglobin (31.2-198.0) mg/dL Fibrinogen (200-500) mg/dL D-Dimer (<0.60) mg/L FEU Sodium (137-145) mmol/L Potassium (3.5-5.1) mmol/L BUN (9-20) mg/dL Creatinine (0.66-1.25) mg/dL Calcium (8.4-10.2) mg/dL Iron 26 L (65-175) UG/DL % Saturation 8.15 L (15.00-50.00) Crossmatch See Detail 06/02/23 06/02/23 06/03/23 Range/Units 16:08 16:08 05:54 RBC 2.56 L (4.40-5.60) X 10*6/uL Hgb 8.8 L D (13.0-17.0) g/dL Hct 28.2 L (39.6-50.0) % MCV 110.0 H D (80.0-97.0) FL MCH (27.0-32.0) pg MCHC (32.0-37.0) g/dL Immature Gran # (0.00-0.04) X 10*3/uL Eosinophils # (0.04-0.35) X 10*3/uL Macrocytosis Marked A Macrocytosis (manual) Haptoglobin 214.0 H (31.2-198.0) mg/dL Fibrinogen 539 H (200-500) mg/dL D-Dimer 1.69 H (<0.60) mg/L FEU Sodium (137-145) mmol/L Potassium (3.5-5.1) mmol/L BUN (9-20) mg/dL Creatinine (0.66-1.25) mg/dL Calcium (8.4-10.2) mg/dL Iron (65-175) UG/DL % Saturation (15.00-50.00) Crossmatch 06/03/23 Range/Units 05:54 RBC (4.40-5.60) X 10*6/uL Hgb (13.0-17.0) g/dL Hct (39.6-50.0) % MCV (80.0-97.0) FL MCH (27.0-32.0) pg MCHC (32.0-37.0) g/dL Immature Gran # (0.00-0.04) X 10*3/uL Eosinophils # (0.04-0.35) X 10*3/uL Macrocytosis Macrocytosis (manual) Haptoglobin (31.2-198.0) mg/dL Fibrinogen (200-500) mg/dL D-Dimer (<0.60) mg/L FEU Sodium 130 L (137-145) mmol/L Potassium 3.2 L (3.5-5.1) mmol/L BUN 8 L (9-20) mg/dL Creatinine 0.54 L (0.66-1.25) mg/dL Calcium 8.3 L (8.4-10.2) mg/dL Iron (65-175) UG/DL % Saturation (15.00-50.00) Crossmatch Microbiology - Last 24 Hours (Table) 05/31/23 08:05 Blood Culture - Preliminary Blood 05/28/23 10:39 Blood Culture - Final Blood Assessment and Plan (1) MSSA bacteremia Current Visit: Yes Status: Acute Code(s): R78.81 - BACTEREMIA; B95.61 - METHICILLIN SUSCEP STAPH INFCT CAUSING DIS CLASSD [id number] SNOMED Code(s): 664748888 (2) Leukocytosis Current Visit: Yes Status: Acute Code(s): D72.829 - ELEVATED WHITE BLOOD CELL COUNT, UNSPECIFIED SNOMED Code(s): 777664804 (3) Aortic valve endocarditis Current Visit: Yes Status: Acute Code(s): I35.8 - OTHER NONRHEUMATIC AORTIC VALVE DISORDERS SNOMED Code(s): 14348817 Plan: 1patient with MSSA bacteremia in this patient who did have a history of chronic back pain with recent worsening and also have a history of extensive lumbosacral spine surgery with fusion, now with a positive blood culture with MSSA, with a high clinical probability source of this bacteremia being the lumbosacral spine however the patient did have MRI that was reported negative for infection, the patient did have a VINCE completed with a small vegetation on the aortic valve concerning for possible endocarditis 2-blood cultures 05/28/2023 as well as 05/29/2023, 05/30/2023 so far negative blood cultures if the blood culture remains to be negative, patient did receive the PICC line on 06/02/2023 3-patient hemoglobin came up and no further workup planned at this time and patient is getting discharged we will give a dose of daptomycin so the patient can resume his cefazolin at home as of tomorrow question concern answered Dictation was produced using [employer] dictation software. please excuse any grammatical, word or spelling errors. Time with Patient: Less than 30
== END 2023-06-03 16:17 | disposition home health service (06) | DRG 871 ==
LOC: EC 13:54 → SUPCPDRO 13:54 → 3SCARD 15:55 → 4SSUR 06-01 18:58
PROVIDERS: ADMIT Student in an Organized Health Care Education/Training Program; ATTEND Student in an Organized Health Care Education/Training Program
PROC: B24BZZ4 Ultrasonography of Heart with Aorta, Transesophageal (ICD-10-PCS; principal; 2023-05-28 09:55)
PROC: 5A2204Z Restoration of Cardiac Rhythm, Single (ICD-10-PCS; 2023-05-29)
PROC: 0DB78ZX Excision of Stomach, Pylorus, Via Natural or Artificial Opening Endoscopic, Diagnostic (ICD-10-PCS; 2023-06-01)
PROC: 0DB38ZX Excision of Lower Esophagus, Via Natural or Artificial Opening Endoscopic, Diagnostic (ICD-10-PCS; 2023-06-01)
PROC: 02HV33Z Insertion of Infusion Device into Superior Vena Cava, Percutaneous Approach (ICD-10-PCS; 2023-06-02)
PROC: 30233N1 Transfusion of Nonautologous Red Blood Cells into Peripheral Vein, Percutaneous Approach (ICD-10-PCS; 2023-06-02)
PROC: 0DJ07ZZ Inspection of Upper Intestinal Tract, Via Natural or Artificial Opening (ICD-10-PCS; 2023-06-03)
DX: A41.02 Sepsis due to Methicillin resistant Staphylococcus aureus (principal); G93.41 Metabolic encephalopathy; I33.0 Acute and subacute infective endocarditis; I21.A1 Myocardial infarction type 2; J18.9 Pneumonia, unspecified organism; E87.20 Acidosis, unspecified; I42.9 Cardiomyopathy, unspecified; D62 Acute posthemorrhagic anemia; E87.1 Hypo-osmolality and hyponatremia; K92.1 Melena; D69.59 Other secondary thrombocytopenia; I48.0 Paroxysmal atrial fibrillation; R16.0 Hepatomegaly, not elsewhere classified; K20.90 Esophagitis, unspecified without bleeding; K29.70 Gastritis, unspecified, without bleeding; F10.20 Alcohol dependence, uncomplicated; I10 Essential (primary) hypertension; E86.0 Dehydration; E78.5 Hyperlipidemia, unspecified; E86.1 Hypovolemia; E87.70 Fluid overload, unspecified; E80.6 Other disorders of bilirubin metabolism; I45.10 Unspecified right bundle-branch block; F41.9 Anxiety disorder, unspecified; M48.061 Spinal stenosis, lumbar region without neurogenic claudication; G89.29 Other chronic pain; M54.50 Low back pain, unspecified; F17.290 Nicotine dependence, other tobacco product, uncomplicated; Z71.6 Tobacco abuse counseling; Z79.899 Other long term (current) drug therapy; Z98.1 Arthrodesis status; V89.2XXA Person injured in unspecified motor-vehicle accident, traffic, initial encounter; Y92.410 Unspecified street and highway as the place of occurrence of the external cause
CPT/HCPCS: 36415; 36573; 43239; 70450; 71045; 72158; 76705; 78227; 80048; 80053; 81001; 82140; 82272; 82550; 82728; 83010; 83540; 83550; 83605; 83615; 83735; 83930; 83935; 84145; 84295; 84300; 84443; 84484; 85025; 85027; 85379; 85384; 85610; 85652; 85730; 86140; 86850; 86900; 86901; 86920; 87040; 87077; 87186; 87449; 88305; 88342; 91110; 92960; 93005; 93306; 93312; 93320; 93325; 96361; 96365; 96366; 96367; 96368; 96375; 99291

== ENCOUNTER 2023-06-30 08:37 | Inpatient (IN) | payer BC ==
--- NOTE | 2023-06-30 08:59 | ED ---
General Adult HPI - General Chief complaint: Shortness of Breath Stated complaint: swelling-fluid retention Time Seen by Provider: 06/30/23 08:39 Source: patient, RN notes reviewed Mode of arrival: wheelchair Limitations: no limitations - History of Present Illness Initial comments: 63-year-old male presents emergency department chief complaint of shortness of breath. Patient states he had increasing shortness of breath the last few days. Patient states that he does have a history of congestive heart failure of recent from infection in which she is still on antibiotics through his PICC line. Patient states that he does take Bumex in which she was on Lasix prior. Patient states he has had a 20 pound weight gain over the last few weeks but more recently 10 pounds in the last 2 to 3 days. Patient states he has exertional dyspnea he states that he can only walk a few steps without being short of breath he states if he gets short of breath and takes a long time to recover. Patient is noticed increased leg swelling. - Related Data Home Medications Medication Instructions Recorded Confirmed Clobetasol Propionate [Temovate 1 applic TOPICAL BID PRN 05/24/23 06/30/23 0.05% Oint] Ferrous Sulfate [Iron (65 MG 325 mg PO W/BRKFST 05/24/23 06/30/23 Elemental)] Gabapentin [Neurontin] 400 mg PO DAILY 05/24/23 06/30/23 Gabapentin [Neurontin] 800 mg PO HS 05/24/23 06/30/23 HYDROcodone/APAP 10-325MG [[place] 1 tab PO Q6H PRN 05/24/23 06/30/23 10-325] Magnesium Citrate and Oxide 250 mg PO DAILY 05/24/23 06/30/23 [Magnesium] Montelukast [Singulair] 10 mg PO DAILY 05/24/23 06/30/23 Pramipexole [Mirapex] 0.5 mg PO HS 05/24/23 06/30/23 Prevagen 1 tab PO DAILY 05/24/23 06/30/23 allopurinoL [Zyloprim] 300 mg PO DAILY 05/24/23 06/30/23 oxyCODONE HCL [oxyCODONE HCL (IR)] 10 mg PO TID 05/24/23 06/30/23 Balance Of Nature Fruit Supplement 1 tab PO BID 06/30/23 06/30/23 Balance Of Nature Vegetable 1 tab PO BID 06/30/23 06/30/23 Supplement Bumetanide [Bumex] 1 mg PO BID 06/30/23 06/30/23 Cetirizine HCl 10 mg PO DAILY 06/30/23 06/30/23 Potassium Chloride ER [K-Dur 20] 20 meq PO BID 06/30/23 06/30/23 ceFAZolin [Kefzol] 2 gm IVP TID 06/30/23 06/30/23 Previous Rx's Medication Instructions Recorded Amiodarone [Cordarone] 200 mg PO BID #60 tab 06/03/23 Aspirin 81 mg PO DAILY tab 06/03/23 Atorvastatin [Lipitor] 40 mg PO HS #30 tab 06/03/23 Losartan [Cozaar] 25 mg PO DAILY #30 tab 06/03/23 Metoprolol Tartrate [Lopressor] 50 mg PO TID #90 tab 06/03/23 Pantoprazole Sodium [Protonix] 40 mg PO AC-BID #60 tab 06/03/23 Simethicone Chew [Mylicon Chew] 40 mg PO QID tab 06/03/23 Sodium Bicarbonate Tab 650 mg PO BID #60 tab 06/03/23 Tamsulosin [Flomax] 0.4 mg PO PC-BRKFST #30 cap 06/03/23 Allergies Allergy/AdvReac Type Severity Reaction Status Date / Time No Known Allergies Allergy Verified 06/30/23 11:57 Review of Systems ROS Statement: Those systems with pertinent positive or pertinent negative responses have been documented in the HPI. ROS Other: All systems not noted in ROS Statement are negative. Past Medical History Past Medical History: Hypertension Additional Past Medical History / Comment(s): anxiety History of Any Multi-Drug Resistant Organisms: None Reported Past Surgical History: Back Surgery Additional Past Surgical History / Comment(s): shoulder surgery Past Anesthesia/Blood Transfusion Reactions: No Reported Reaction Past Psychological History: No Psychological Hx Reported Smoking Status: Current every day smoker, Vaper Past Alcohol Use History: Heavy Past Drug Use History: Marijuana General Exam Limitations: no limitations General appearance: alert, in no apparent distress Head exam: Present: atraumatic, normocephalic, normal inspection Eye exam: Present: normal appearance, PERRL, EOMI. Absent: scleral icterus, conjunctival injection, periorbital swelling ENT exam: Present: normal exam, mucous membranes moist Neck exam: Present: normal inspection, full ROM. Absent: tenderness, meningismus, lymphadenopathy Respiratory exam: Present: rales. Absent: normal lung sounds bilaterally, respiratory distress, wheezes, rhonchi, stridor Cardiovascular Exam: Present: regular rate, normal rhythm, normal heart sounds. Absent: systolic murmur, diastolic murmur, rubs, gallop, clicks Extremities exam: Present: pedal edema Neurological exam: Present: alert, oriented X3, CN II-XII intact, reflexes normal. Absent: motor sensory deficit Course Vital Signs 06/30/23 06/30/23 06/30/23 08:38 09:38 11:57 Temperature 97.7 F 97.5 F L Pulse Rate 56 L 52 L Respiratory 22 20 18 Rate Blood Pressure 131/72 135/71 O2 Sat by Pulse 96 97 Oximetry EKG Findings - EKG Comments: EKG Findings:: EKG performed at 9: 25 sinus bradycardia with first-degree block rate of 51 AL 211 QRS 147 QT/QTc 548/526 - EKG Results: EKG: interpreted by NICK Medical Decision Making - Medical Decision Making Was pt. sent in by a medical professional or institution (, PA, ANNUAL GREENHOUSE MANAGER, urgent care, hospital, or fdc...) When possible be specific @ -PCP Did you speak to anyone other than the patient for history (EMS, parent, family, police, friend...)? What history was obtained from this source @ -No Did you review nursing and triage notes (agree or disagree)? Why? @ -I reviewed and agree with nursing and triage notes Were old charts reviewed (outside hosp., previous admission, EMS record, old EKG, old radiological studies, urgent care reports/EKG's, fdc records)? Report findings @ -No old charts were reviewed Differential Diagnosis (chest pain, altered mental status, abdominal pain women, abdominal pain men, vaginal bleeding, weakness, fever, dyspnea, syncope, headache, dizziness, GI bleed, back pain, seizure, CVA, palpatations, mental health, musculoskeletal)? @Differential Dyspnea: Coronary syndrome, arrhythmia, tamponade, asthma, COPD, pulmonary embolism, pneumonia, pneumothorax, pulmonary effusion, anaphylaxis, diabetic ketoacidosis, flailed chest, pulmonary contusion, diaphragmatic rupture, anemia, neurom uscular, this is not meant to be an all-inclusive list. EKG interpreted by me (3pts min.). @ -As above X-rays interpreted by me (1pt min.). @ -[Chest x-ray shows bilateral pleural effusion CT interpreted by me (1pt min.). @ -None done U/S interpreted by me (1pt. min.). @ -None done What testing was considered but not performed or refused? (CT, X-rays, U/S, labs)? Why? @ -None What meds were considered but not given or refused? Why? @ -None Did you discuss the management of the patient with other professionals (professionals i.e. , PA, ANNUAL GREENHOUSE MANAGER, lab, RT, psych nurse, clinical social work aide, animal cruelty investigation supervisor, teacher, chief security and safety officer, sample case porter)? Give summary @ -Dr Villalobos for admission Was smoking cessation discussed for >3mins.? @ -No Was critical care preformed (if so, how long)? @ -No Were there social determinants of health that impacted care today? How? (Homelessness, low income, unemployed, alcoholism, drug addiction, transportation, low edu. Level, literacy, decrease access to med. care, [place] [facility], rehab)? @ -No Was there de-escalation of care discussed even if they declined (Discuss DNR or withdrawal of care, Hospice)? DNR status @ -No What co-morbidities impacted this encounter? (DM, HTN, Smoking, COPD, CAD, Cancer, CVA, ARF, Chemo, Hep., AIDS, mental health diagnosis, sleep apnea, morbid obesity)? @ -CHF, hypertension Was patient admitted / discharged? Hospital course, mention meds given and route, prescriptions, significant lab abnormalities, going to OR and other pertinent info. @ -Admitted patient found to have bilateral pleural effusion, orthopnea, exertional dyspnea patient was started on Lasix patient will be admitted for cardiology evaluation he does have hyponatremia with closer monitoring may require nephrology evaluation. Patient also has hypomagnesemia was started on replacement. Undiagnosed new problem with uncertain prognosis? @ -No Drug Therapy requiring intensive monitoring for toxicity (Heparin, Nitro, Insulin, Cardizem)? @ -No Were any procedures done? @ -No Diagnosis/symptom? @ -CHF, hyponatremia, hypomagnesemia Acute, or Chronic, or Acute on Chronic? @ -Acute Uncomplicated (without systemic symptoms) or Complicated (systemic symptoms)? @ -Complicated Side effects of treatment? @ -No Exacerbation, Progression, or Severe Exacerbation? @ -No Poses a threat to life or bodily function? How? (Chest pain, [place], PR, pneumonia, PE, COPD, DKA, ARF, appy, cholecystitis, CVA, Diverticulitis, Homicidal, Suicidal, threat to staff... and all critical care pts) @ -Yes CHF - Lab Data Result diagrams: 06/30/23 09:59 06/30/23 09:59 Lab Results 06/30/23 06/30/23 06/30/23 Range/Units 09:59 09:59 09:59 WBC 4.8 (3.8-10.6) k/uL RBC 2.66 L (4.30-5.90) m/uL Hgb 9.5 L (13.0-17.5) gm/dL Hct 30.1 L (39.0-53.0) % MCV 113.0 H (80.0-100.0) fL MCH 35.5 H (25.0-35.0) pg MCHC 31.4 (31.0-37.0) g/dL RDW 15.3 (11.5-15.5) % Plt Count 164 (150-450) k/uL MPV 10.3 Neutrophils % 64 % Lymphocytes % 21 % Monocytes % 9 % Eosinophils % 2 % Basophils % 1 % Neutrophils # 3.1 (1.3-7.7) k/uL Lymphocytes # 1.0 (1.0-4.8) k/uL Monocytes # 0.4 (0-1.0) k/uL Eosinophils # 0.1 (0-0.7) k/uL Basophils # 0.0 (0-0.2) k/uL Macrocytosis Marked A PT (10.0-12.5) sec INR (<1.2) APTT (22.0-30.0) sec Sodium 123 L (137-145) mmol/L Potassium 4.3 (3.5-5.1) mmol/L Chloride 96 L (98-107) mmol/L Carbon Dioxide 19 L (22-30) mmol/L Anion Gap 8 mmol/L BUN 10 (9-20) mg/dL Creatinine 0.54 L (0.66-1.25) mg/dL Est GFR (CKD-EPI)AfAm >90 (>60 ml/min/1.73 sqM) Est GFR (CKD-EPI)NonAf >90 (>60 ml/min/1.73 sqM) Glucose 108 H (74-99) mg/dL Plasma Lactic Acid Tom 1.2 (0.7-2.0) mmol/L Calcium 8.6 (8.4-10.2) mg/dL Magnesium 1.3 L (1.6-2.3) mg/dL Total Bilirubin 0.5 (0.2-1.3) mg/dL AST 28 (17-59) U/L ALT 8 (4-49) U/L Alkaline Phosphatase 124 (38-126) U/L Troponin I (0.000-0.034) ng/mL NT-Pro-B Natriuret Pep 4850 pg/mL Total Protein 6.6 (6.3-8.2) g/dL Albumin 3.2 L (3.5-5.0) g/dL 06/30/23 06/30/23 Range/Units 09:59 10:53 WBC (3.8-10.6) k/uL RBC (4.30-5.90) m/uL Hgb (13.0-17.5) gm/dL Hct (39.0-53.0) % MCV (80.0-100.0) fL MCH (25.0-35.0) pg MCHC (31.0-37.0) g/dL RDW (11.5-15.5) % Plt Count (150-450) k/uL MPV Neutrophils % % Lymphocytes % % Monocytes % % Eosinophils % % Basophils % % Neutrophils # (1.3-7.7) k/uL Lymphocytes # (1.0-4.8) k/uL Monocytes # (0-1.0) k/uL Eosinophils # (0-0.7) k/uL Basophils # (0-0.2) k/uL Macrocytosis PT 11.7 (10.0-12.5) sec INR 1.1 (<1.2) APTT 32.6 H (22.0-30.0) sec Sodium (137-145) mmol/L Potassium (3.5-5.1) mmol/L Chloride (98-107) mmol/L Carbon Dioxide (22-30) mmol/L Anion Gap mmol/L BUN (9-20) mg/dL Creatinine (0.66-1.25) mg/dL Est GFR (CKD-EPI)AfAm (>60 ml/min/1.73 sqM) Est GFR (CKD-EPI)NonAf (>60 ml/min/1.73 sqM) Glucose (74-99) mg/dL Plasma Lactic Acid Tom (0.7-2.0) mmol/L Calcium (8.4-10.2) mg/dL Magnesium (1.6-2.3) mg/dL Total Bilirubin (0.2-1.3) mg/dL AST (17-59) U/L ALT (4-49) U/L Alkaline Phosphatase (38-126) U/L Troponin I <0.012 (0.000-0.034) ng/mL NT-Pro-B Natriuret Pep pg/mL Total Protein (6.3-8.2) g/dL Albumin (3.5-5.0) g/dL Disposition Clinical Impression: Hyponatremia, CHF exacerbation Disposition: ADMITTED IP TO THIS HOSP Condition: Fair Time of Disposition: 11:39
--- NOTE | 2023-06-30 09:19 | XR ---
EXAMINATION TYPE: XR chest 2V DATE OF EXAM: 06/30/2023 COMPARISON: 06/02/2023 INDICATION: Difficulty breathing short of breath TECHNIQUE: Frontal and lateral views of the chest are obtained. FINDINGS: The heart size is upper limits for normal size. The pulmonary vasculature is upper limits of normal. No suspicious peripheral infiltrates are evident. Very minimal pleural effusions may be present with blunting of the costophrenic angles. Posterior pleural effusions are identified in the lateral projec tion. There is some hyperinflation and flattening the diaphragms compatible with COPD. IMPRESSION: 1. COPD. 2. Minimal bilateral pleural effusions.
[2023-06-30 10:17] LABS: ALT 8 U/L (4-49); AST 28 U/L (17-59); African American GFR (CKD) >90 (>60 ml/min/1.73 sqM); Albumin 3.2 g/dL (3.5-5.0); Alkaline Phosphatase 124 U/L (38-126); Anion Gap 8 mmol/L; Blood Urea Nitrogen 10 mg/dL (9-20); Calcium 8.6 mg/dL (8.4-10.2); Carbon Dioxide 19 mmol/L (22-30); Chloride 96 mmol/L (98-107); Glucose 108 mg/dL (74-99); Magnesium 1.3 mg/dL (1.6-2.3); Non-African American GFR(CKD) >90 (>60 ml/min/1.73 sqM); Potassium 4.3 mmol/L (3.5-5.1); Sodium 123 mmol/L (137-145); Total Bilirubin 0.5 mg/dL (0.2-1.3); Total Protein 6.6 g/dL (6.3-8.2)
[2023-06-30 10:23] LABS: Basophils % (A) 1 %; Eosinophils # (A) 0.1 k/uL (0-0.7); Eosinophils % (A) 2 %; HCT 30.1 % (39.0-53.0); HGB 9.5 gm/dL (13.0-17.5); Lymphocytes % (A) 21 %; MCH 35.5 pg (25.0-35.0); MCHC 31.4 g/dL (31.0-37.0); Macrocytosis Marked; Mean Platelet Volume 10.3; Monocytes # (A) 0.4 k/uL (0-1.0); Monocytes % (A) 9 %; Neutrophils # (A) 3.1 k/uL (1.3-7.7); Neutrophils % (A) 64 %; Platelet Count 164 k/uL (150-450); RBC 2.66 m/uL (4.30-5.90); RDW 15.3 % (11.5-15.5); WBC 4.8 k/uL (3.8-10.6)
[2023-06-30 10:25] LABS: NT-Pro-B-Type Natriuretic Pept 4850 pg/mL
[2023-06-30 11:23] LABS: INR 1.1 (<1.2); Partial Thromboplastin Time 32.6 sec (22.0-30.0); Prothrombin Time 11.7 sec (10.0-12.5)
[2023-06-30] MEDS ORDERED: Magnesium Replacement Protocol 1 EACH MISC MISCELLANE PRN (11:44)
[2023-06-30] MEDS: FUROSEMIDE 10 MG/ML 4 ML VIAL IV STA (12:11)
[2023-06-30] MEDS: MAGNESIUM SULFATE-D5W PMX 1 GM in DEXTROSE/WATER 1 100ML.BAG IVPB SCH (12:11)
[2023-06-30 12:35] VITALS: BP 135/71; PULSE 52; RESP 18; TEMP 97.5
== END 2023-06-30 11:57 | disposition left against medical advice (07) | DRG 292 ==
LOC: EC 08:37 → 3NCARDOBS 11:33
PROVIDERS: ADMIT Internal Medicine; ATTEND Internal Medicine
DX: I11.0 Hypertensive heart disease with heart failure (principal); E87.1 Hypo-osmolality and hyponatremia; I50.9 Heart failure, unspecified; F17.290 Nicotine dependence, other tobacco product, uncomplicated; E83.42 Hypomagnesemia; F41.9 Anxiety disorder, unspecified; Z79.82 Long term (current) use of aspirin
CPT/HCPCS: 36415; 71046; 80053; 83605; 83735; 83880; 84484; 85025; 85610; 85730; 99285